=== PATIENT | female | born 1940 | race Caucasian/White ===

== ENCOUNTER 2020-01-14 06:21 | Outpatient (CLI) | payer MEDICARE, BC, SELFPAY ==
[2020-01-14 17:27] LABS: SARS-CoV-2 RNA PCR Negative
== END 2020-01-14 06:22 | disposition home or self-care (01) ==
LOC: ANHCOVIDDT 06:21
PROVIDERS: PCP Physician Assistant; Visit Provider Internal Medicine Gastroenterology
DX: Z01.812 Encounter for preprocedural laboratory examination (principal); Z11.59 Encounter for screening for other viral diseases
CPT/HCPCS: 87635; C9803; U0003

== ENCOUNTER 2020-01-17 03:28 | Day surgery (SDC) | payer MEDICARE, BC, SELFPAY ==
[2020-01-12 15:52] VITALS: BMI 31.2
[2020-01-17 09:55] LABS: Glucose Point of Care 119 (65-105)
[2020-01-17 10:06] VITALS: BP 178/58; PULSE 58; RESP 20; TEMP 36.6; O2SAT 97; BMI 30.1
--- NOTE | 2020-01-17 10:09 | WPDANESEPPF ---
Anes - Initial Pre Proc Eval Procedure: Operation Date: 01/17/20 11:00 Proposed Procedures p Esophagogastroduodenoscopy - Jacob Hood MD Date/Time: 01/17/20 10:09 Surgeon: Jacob Hood MD Pre Op Diagnosis: Dyspepsia Patient Data Age: 79 Gender: F Height: 5 ft 1 in Weight: 75 kg Allergies Allergy/AdvReac Type Severity Reaction Status Date / Time metronidazole Allergy Severe Unknown Verified 01/17/20 10:04 codeine Allergy Intermediate HYPERACTIVI Verified 01/17/20 10:04 TY Home Medications Medication Instructions Recorded Confirmed Type bisoprolol-hydrochlorothiazide 1 tablet PO QAM 01/12/20 01/17/20 History levothyroxine [Synthroid] 75 mcg PO QAM 01/12/20 01/17/20 History metformin 500 mg PO QAM 01/12/20 01/17/20 History multivitamin [Multiple Vitamins] 1 tablet PO DAILY 01/12/20 01/17/20 History pitavastatin calcium [Livalo] 2 mg PO QAM 01/12/20 01/17/20 History ramipril 10 mg PO QAM 01/12/20 01/17/20 History Laboratory Tests 01/17/20 09:53 POC Capillary Glucose 119 mg/dl H mg/dl (65-105) Patient hx anesthesia problems: none Family hx anesthesia problems: none [facility] Past Medical History Medical History (Updated 01/17/20 @ 10:11 by Glen Freeman MD) Dementia Diabetes GERD (gastroesophageal reflux disease) Hyperlipidemia Hypertension Anes - Eval Final PreProcedure Day of Procedure 01/17/20 10:09 Patient weight: normal Heart: regular rate and rhythm Lungs: clear to auscultation Airway: Mallampati scale class III Neurological: alert and oriented Last oral intake: >/= 8 hours ASA classification: III Emergent: no Anesthetic plan: proceed Anesthesia type and monitoring: general GIVS and standard monitoring Informed Consent: The patient's anesthetic plan and its attendant risks and benefits were discussed with the patient/family/POA. Questions were solicited and answers provided to the satisfaction of the patient/family/POA.
--- NOTE | 2020-01-17 10:10 | PM.HPGS ---
History of Present Illness History of Present Illness Consent: Risks, benefits, and alternatives have been discussed and questions answered. Patient agrees to proceed with procedure. Chief complaint: Dyspepsia Narrative: Mayuri Fernando is a 79 year old female with dyspepsia that has been going on for almost 2 years. She states that she belches constantly. On taking her history it appears at this is primarily a hiccup, though her adds that she has loud belches frequently throughout the day and night. She is constantly nauseated. She has a bad taste in her mouth. She must force herself to eat the little bit that she can. Nevertheless, she has not lost any weight in fact is gaining weight. She apparently tried a PPI for a while. Her stated that it made it worse and he stopped it because he was afraid she would get gastric polyps. [facility] Past Medical History Medical History Dementia Diabetes GERD (gastroesophageal reflux disease) Hyperlipidemia Hypertension Meds Home Medications and Allergies Home Medications Medication Instructions Recorded Confirmed Type bisoprolol-hydrochlorothiazide 1 tablet PO QAM 01/12/20 01/17/20 History levothyroxine [Synthroid] 75 mcg PO QAM 01/12/20 01/17/20 History metformin 500 mg PO QAM 01/12/20 01/17/20 History multivitamin [Multiple Vitamins] 1 tablet PO DAILY 01/12/20 01/17/20 History pitavastatin calcium [Livalo] 2 mg PO QAM 01/12/20 01/17/20 History ramipril 10 mg PO QAM 01/12/20 01/17/20 History Allergies Allergy/AdvReac Type Severity Reaction Status Date / Time metronidazole Allergy Severe Unknown Verified 01/17/20 10:04 codeine Allergy Intermediate HYPERACTIVI Verified 01/17/20 10:04 TY Vital Signs Vital Signs - 24 hr 01/17/20 10:06 Temperature 36.6 C Pulse Rate 58 L Respiratory Rate 20 Blood Pressure 178/58 H Pulse Oximetry 97 Exam Const: General: alert Orientation/consciousness: patient oriented x3 Resp: Auscultation: clear to auscultation bilaterally Cardio: Rhythm: regular rhythm GI: GI Palp: Yes Soft to palpation and No Tenderness to palpation present (GI) Neuro: General: patient oriented x3 Assessment and Plan Assessment and plan (1) Nausea: Code(s): R11.0 - Nausea Status: Acute Assessment and Plan: EGD with possible biopsy or dilatation or cautery.
[2020-01-17] MEDS: LACTATED RINGERS 1,000 ML 150 ML IV CONT (10:11)
[2020-01-17] MEDS: ONDANSETRON INJ 4 MG/2 ML VIAL IV PUSH (10:16)
[2020-01-17 11:02] VITALS: BP 162/63; PULSE 54; RESP 24; O2SAT 97
[2020-01-17 11:12] VITALS: BP 170/72; PULSE 51; RESP 20; O2SAT 100
[2020-01-17 11:22] VITALS: BP 173/69; PULSE 50; RESP 21; O2SAT 99
[2020-01-17 11:33] LABS: Glucose Point of Care 105 (65-105)
--- NOTE | 2020-01-17 11:55 | SUR.PHASEII ---
1155: DR VALDIVIA'S OFFICE NOTIFIED OF POSITIVE H PYLORI. THEY WILL NOTIFY MD. FAMILY AWARE THAT DR VALDIVIA WILL CALL WITH ANY FURTHER ORDERS. NO CONCERNS
== END 2020-01-17 11:48 | disposition home or self-care (01) ==
PROVIDERS: PCP Physician Assistant; Visit Provider Internal Medicine Gastroenterology
PROC: 0DJ08ZZ Inspection of Upper Intestinal Tract, Via Natural or Artificial Opening Endoscopic (ICD-10-PCS; CPT 43235; principal; 2020-01-17 11:00)
DX: K44.9 Diaphragmatic hernia without obstruction or gangrene (principal); K25.9 Gastric ulcer, unspecified as acute or chronic, without hemorrhage or perforation; K29.50 Unspecified chronic gastritis without bleeding; K21.9 Gastro-esophageal reflux disease without esophagitis; I10 Essential (primary) hypertension; E78.5 Hyperlipidemia, unspecified; E11.9 Type 2 diabetes mellitus without complications; F03.90 Unspecified dementia, unspecified severity, without behavioral disturbance, psychotic disturbance, mood disturbance, and anxiety; Z79.84 Long term (current) use of oral hypoglycemic drugs
CPT/HCPCS: 43239; 87081; 88305; 88342; J2405; J2704; J7120

== ENCOUNTER 2020-03-22 09:33 | Outpatient (CLI) | payer MEDICARE, BC, SELFPAY ==
--- NOTE | 2020-03-22 | ECHO_ITS ---
Patient Info Name: Mayuri Fernando Age: 80 years : 1940 Gender: Female Ht: 62 in Wt: 155 lbs BSA: 1.78 m2 HR: 59 bpm BP: 180 / 78 mmHg Heart Rhythm: Sinus Rhythm Technical Quality: Good Exam Date: 03/22/2020 10:11 AM Exam Location: [facility] Patient Status: Outpatient Admit Date: 03/22/2020 Staff Ordering Physician: YeChelly Finisher Machine: Lian Ellis RDCS Attending Provider: AnuChelly Exam Type: CA echo doppler color flow Study Info Indications - MURMUR Complete two-dimensional, color flow and Doppler transthoracic echocardiogram is performed. Summary 1. Complete two-dimensional, color flow and Doppler transthoracic echocardiogram is performed. 2. Left ventricular systolic function is normal, estimated at 55-60%. 3. There is no increased left ventricular wall thickness. 4. The left ventricular diastolic function is grade I diastolic dysfunction. 5. There is moderate aortic valve stenosis with a peak velocity of 244 cm/s, mean gradient of 13 mmHg, and aortic valve area of 1.3 cm2. 6. There is moderate aortic valve calcification. 7. There is mild tricuspid valve regurgitation. 8. No pulmonary hypertension, estimated pulmonary arterial systolic pressure is 29 mmHg. 9. The mitral valve annulus is moderately calcified with calcification of the sub mitral apparatus. 10. There is mild aortic valve regurgitation. 11. There is mild mitral valve regurgitation. 12. There is moderate aortic atherosclerosis. Fixed, echodensity measured at 0.5cmx0.7cm in the proximal ascending aorta consistent with focal calcified plaque. Left Ventricle Left ventricular chamber dimension is normal. Left ventricular systolic function is normal, estimated at 55-60%. There is no increased left ventricular wall thickness. The left ventricular diastolic function is grade I diastolic dysfunction. Right Ventricle Right ventricular chamber dimension is normal. Right ventricular systolic function is normal. Left Atria Left atrial chamber dimension is normal. Right Atria Right atrial chamber dimension is normal. Aortic Valve The aortic valve is not well visualized. There is moderate aortic valve stenosis with a peak velocity of 244 cm/s, mean gradient of 13 mmHg, and aortic valve area of 1.3 cm2. There is mild aortic valve regurgitation. There is moderate aortic valve calcification. Pulmonic Valve The pulmonic valve is normal. There is mild pulmonic regurgitation. Mitral Valve The mitral valve has thickened leaflets and calcified leaflets. There is mild mitral valve regurgitation. The mitral valve annulus is moderately calcified with calcification of the sub mitral apparatus. Tricuspid Valve The tricuspid valve leaflets are normal. There is mild tricuspid valve regurgitation. No pulmonary hypertension, estimated pulmonary arterial systolic pressure is 29 mmHg. Pericardium/Pleural The pericardium appears normal. There is no pericardial effusion. Inferior Vena Cava Normal inferior vena cava with >50% collapse upon inspiration consistent with normal right atrial pressure, 5 mmHg. Aorta The aortic root size at the sinus of Valsalva is normal. There is moderate aortic atherosclerosis. Fixed, echodensity measured at 0.5cmx0.7cm in the proximal ascending aorta consistent with focal calcified plaque. Left Ventricular Outflow Tract Name
== END 2020-03-22 09:34 | disposition home or self-care (01) ==
PROVIDERS: PCP Physician Assistant; Visit Provider Physician Assistant
DX: R01.1 Cardiac murmur, unspecified (principal); R93.1 Abnormal findings on diagnostic imaging of heart and coronary circulation
CPT/HCPCS: 93306

== ENCOUNTER 2020-05-02 11:25 | Outpatient (CLI) | payer MEDICARE, BC, SELFPAY ==
--- NOTE | ~2020-05-02 | XR_ITS ---
EXAMINATION: XR shoulder RT min 2V DATE: 05/02/2020 11:50 INDICATION: Right shoulder pain. TECHNIQUE: 4 views of right shoulder were obtained. COMPARISON: None. FINDINGS: Bone alignment is normal. No fracture. There is mild osteoarthritis of glenohumeral joint a nd acromioclavicular joint. Calcified right hilar lymph nodes are consistent with old granulomatous d isease. IMPRESSION: 1. Mild polyarticular osteoarthritis. Reviewed, dictated and finalized at location A.
== END 2020-05-02 11:26 | disposition home or self-care (01) ==
LOC: ANHIMG 11:30
PROVIDERS: PCP Physician Assistant; Visit Provider Physician Assistant
DX: M19.011 Primary osteoarthritis, right shoulder (principal); G89.29 Other chronic pain
CPT/HCPCS: 73030

== ENCOUNTER → 2020-12-15 01:10 | Outpatient (CLI) | payer MEDICARE, BC, SELFPAY ==
[2020-12-15 19:37] LABS: SARS-CoV-2 RNA PCR Negative
== END ==
PROVIDERS: PCP Physician Assistant; Visit Provider Internal Medicine Gastroenterology
DX: Z01.812 Encounter for preprocedural laboratory examination (principal); Z20.822 Contact with and (suspected) exposure to COVID-19
CPT/HCPCS: C9803; U0003; U0005

== ENCOUNTER 2020-12-19 01:49 | Day surgery (SDC) | payer MEDICARE, BC, SELFPAY ==
[2020-12-12 14:03] VITALS: BMI 31.4
--- NOTE | 2020-12-19 07:29 | PM.HPGS ---
History of Present Illness History of Present Illness Consent: Risks, benefits, and alternatives have been discussed and questions answered. Patient agrees to proceed with procedure. Chief complaint: Epigastric Pain Narrative: Mayuri Fernando is a 80 year old female persistent dyspepsia. She had a ulcer last year. She had declined follow-up to confirm healing at that time. Now because of persistent symptoms and new symptoms of excessive belching she comes in for evaluation. Review of Systems Review of Systems: All systems reviewed & are unremarkable except as noted in HPI and below PMFSH Past Medical History Medical History Dementia Diabetes Gastric ulcer GERD (gastroesophageal reflux disease) Hyperlipidemia Hypertension Ulcer Social History Social History Smoking status: Never smoker Alcohol intake: never Substance use: never Living arrangements: with family Additional living arrangements comments: - /- Spiritual care concerns: No Meds Home Medications and Allergies Home Medications Medication Instructions Recorded Confirmed Type Livalo 2 mg PO QAM 01/12/20 12/12/20 History bisoprolol-hydrochlorothiazide 1 tablet PO QAM 01/12/20 12/12/20 History levothyroxine [Synthroid] 75 mcg PO QAM 01/12/20 12/12/20 History metformin 500 mg PO QAM 01/12/20 12/12/20 History multivitamin [Multiple Vitamins] 1 tablet PO DAILY 01/12/20 12/12/20 History ramipril 10 mg PO QAM 01/12/20 12/12/20 History Allergies Allergy/AdvReac Type Severity Reaction Status Date / Time metronidazole Allergy Severe Unknown Verified 12/12/20 14:01 codeine Allergy Intermediate HYPERACTIVI Verified 12/12/20 14:01 TY Exam Const: General: alert Orientation/consciousness: patient oriented x3 Resp: Auscultation: clear to auscultation bilaterally Cardio: Rhythm: regular rhythm GI: GI Palp: Yes Soft to palpation and No Tenderness to palpation present (GI) Neuro: General: patient oriented x3 Assessment and Plan Assessment and plan (1) Epigastric pain: Code(s): R10.13 - Epigastric pain Status: Acute Assessment and Plan: EGD with possible biopsy or dilatation or cautery.
[2020-12-19 07:41] VITALS: BP 156/83; PULSE 65; RESP 14; TEMP 36.1; O2SAT 98; BMI 31.9
[2020-12-19] MEDS: LACTATED RINGERS 1,000 ML 150 ML IV CONT (07:53)
[2020-12-19 07:55] LABS: Glucose Point of Care 130 mg/dl (65-105)
--- NOTE | 2020-12-19 08:09 | WPDANESEPPF ---
Anes - Initial Pre Proc Eval Procedure: Operation Date: 12/19/20 08:30 Proposed Procedures p Esophagogastroduodenoscopy - Jacob Hood MD Date/Time: 12/19/20 08:09 Surgeon: Jacob Hood MD Pre Op Diagnosis: Epigastric Pain Patient Data Age: 80 Gender: F Height: 5 ft Weight: 74.2 kg Last Vital Signs Temp 96.9 F L 12/19/20 07:41 Pulse 65 12/19/20 07:41 Resp 14 12/19/20 07:41 BP 156/83 H 12/19/20 07:41 Pulse Ox 98 12/19/20 07:41 Allergies Allergy/AdvReac Type Severity Reaction Status Date / Time metronidazole Allergy Severe Unknown Verified 12/19/20 07:37 codeine Allergy Intermediate HYPERACTIVI Verified 12/19/20 07:37 TY Home Medications Medication Instructions Recorded Confirmed Type Livalo 2 mg PO QAM 01/12/20 12/12/20 History bisoprolol-hydrochlorothiazide 1 tablet PO QAM 01/12/20 12/12/20 History levothyroxine [Synthroid] 75 mcg PO QAM 01/12/20 12/12/20 History metformin 500 mg PO QAM 01/12/20 12/12/20 History multivitamin [Multiple Vitamins] 1 tablet PO DAILY 01/12/20 12/12/20 History ramipril 10 mg PO QAM 01/12/20 12/12/20 History Laboratory Tests 12/19/20 07:46 POC Capillary Glucose 130 mg/dl H mg/dl (65-105) Patient hx anesthesia problems: none Family hx anesthesia problems: none [facility] Past Medical History Medical History Dementia Diabetes Gastric ulcer GERD (gastroesophageal reflux disease) Hyperlipidemia Hypertension Ulcer Social History Social History Smoking status: Never smoker Alcohol intake: never Substance use: never Living arrangements: with family Additional living arrangements comments: - /- Spiritual care concerns: No Anes - Eval Final PreProcedure Day of Procedure 12/19/20 08:09 Patient weight: overweight Heart: regular rate and rhythm Lungs: clear to auscultation Airway: Mallampati scale class II Neurological: alert and oriented Last oral intake: >/= 8 hours ASA classification: III Emergent: no Anesthetic plan: proceed Anesthesia type and monitoring: general GIVS and standard monitoring Informed Consent: The patient's anesthetic plan and its attendant risks and benefits were discussed with the patient/family/POA. Questions were solicited and answers provided to the satisfaction of the patient/family/POA.
[2020-12-19 08:34] VITALS: BP 174/70; PULSE 54; RESP 23; O2SAT 98
[2020-12-19 08:44] VITALS: BP 172/72; PULSE 54; RESP 20; O2SAT 98
[2020-12-19 08:47] VITALS: BP 174/70; PULSE 54; RESP 23; O2SAT 98
[2020-12-19 08:54] VITALS: BP 170/74; PULSE 52; RESP 16; O2SAT 98
== END 2020-12-19 09:15 | disposition home or self-care (01) ==
PROVIDERS: PCP Physician Assistant; Visit Provider Internal Medicine Gastroenterology
PROC: 0DJ08ZZ Inspection of Upper Intestinal Tract, Via Natural or Artificial Opening Endoscopic (ICD-10-PCS; CPT 43235; principal; 2020-12-19 08:30)
DX: K25.9 Gastric ulcer, unspecified as acute or chronic, without hemorrhage or perforation (principal); K21.9 Gastro-esophageal reflux disease without esophagitis; F03.90 Unspecified dementia, unspecified severity, without behavioral disturbance, psychotic disturbance, mood disturbance, and anxiety; E11.9 Type 2 diabetes mellitus without complications; I10 Essential (primary) hypertension; E78.5 Hyperlipidemia, unspecified; Z79.84 Long term (current) use of oral hypoglycemic drugs
CPT/HCPCS: 43239; 82948; 87081; J2704; J7120

== ENCOUNTER 2023-11-26 04:39 | Inpatient (IN) | payer MEDICARE, BC, SELFPAY ==
[2023-11-26] VITALS (11 sets, daily range): BP systolic 119–167; BP diastolic 40–92; PULSE 53–64; RESP 10–20; TEMP 36.1–36.7; O2SAT 95–100; BMI 29.0
--- NOTE | ~2023-11-26 | XR_ITS ---
Portable chest x-ray Comparison: 08/31/2007 Clinical History: Status post fall Findings: There is linear scarring or atelectasis left midlung. Lungs are otherwise clear. Cardiome diastinal silhouette is stable. Bones and soft tissues are unremarkable. Impression: Linear scar or atelectasis left midlung, otherwise clear lungs. Reviewed, dictated and finalized at location . Impression: Linear scar or atelectasis left midlung, otherwise clear lungs.
--- NOTE | ~2023-11-26 | XR_ITS ---
Left Hand Technique: PA, oblique, and lateral views were obtained. Clinical History: Pain Findings: No acute fracture or dislocation is seen. Osseous alignment is anatomic. There are scattere d mild to moderate degenerative changes of the interphalangeal joints of the fingers. There is mild t o moderate degenerative change of the first CMC joint. Soft tissues are unremarkable. Impression: No acute fracture or dislocation. Scattered degenerative changes, as detailed above. Reviewed, dictated and finalized at location M. Impression: No acute fracture or dislocation. Scattered degenerative changes, as detailed above.
--- NOTE | ~2023-11-26 | CT_ITS ---
Noncontrast CT scan of the cervical spine Technique: Multiple contiguous axial [address] images of the cervical spine were obtained and rec onstructed in 2D sagittal and coronal planes on the acquisition scanner. Dose reduction technique was used on this scan by utilizing automated exposure control, adjustment of the mA and/or kV according to patient size. The dose-length product (DLP) was 146.58 mGy-cm. Clinical History: Pain Findings: No fractures or dislocations. There is advanced degenerative disc narrowing at C6-C7. Ther e is mild degenerative change in the remainder of the cervical spine. There is advanced degenerative change at the articulation of the odontoid process with the anterior arch of C1. There are moderate f acet joint degenerative changes throughout the cervical spine. There is probable mild bilateral neura l foraminal narrowing at C4-C5. There is probable bilateral neural foraminal narrowing at C5-C6 and C 6-C7. There is disc osteophyte complex at C6-C7 with probable mild canal stenosis. No prevertebral so ft tissue swelling. Impression: No fracture or subluxation of the cervical spine. Degenerative change, as above. Reviewed, dictated and finalized at location . Impression: No fracture or subluxation of the cervical spine. Degenerative change, as above.
--- NOTE | ~2023-11-26 | XR_ITS ---
Right Hand Technique: PA, oblique, and lateral views were obtained. Clinical History: Pain Findings: No acute fracture or dislocation is seen. Osseous alignment is anatomic. There is advanced degenerative change of the second and third DIP joints. There are mild to moderate degenerative carrillo es the remaining interphalangeal joints of the fingers, with additional mild degenerative change at t he first CMC joint.. Soft tissues are unremarkable. Impression: Scattered degenerative changes, as above, worst at the second and third DIP joints. Reviewed, dictated and finalized at location M. Impression: Scattered degenerative changes, as above, worst at the second and third DIP lana nts.
--- NOTE | ~2023-11-26 | XR_ITS ---
EXAMINATION: XR cervical spine 4-5V DATE: 11/26/2023 19:10 INDICATION: Right shoulder pain. TECHNIQUE: 5 views of cervical spine including flexion and extension views were obtained. COMPARISON: None. FINDINGS: Bone alignment is normal. There is no abnormal motion on flexion or extension. Vertebral gus dy heights are normal. There is moderately decreased disc height at C4-C5 and C5-C6 and severely decr eased disc height at C6-C7 and C7-T1. There is multilevel facet joint osteoarthritis, severe on the r ight at C4-C5 and on the left at C3-C4. No central canal stenosis or prevertebral soft tissue swellin g. IMPRESSION: 1. Severe cervical spondylosis. Reviewed, dictated and finalized at location E.
--- NOTE | ~2023-11-26 | XR_ITS ---
EXAMINATION: XR shoulder RT min 2V DATE: 11/26/2023 19:10 INDICATION: Right shoulder pain. TECHNIQUE: 3 views of right shoulder were obtained. COMPARISON: Right shoulder radiographs 05/02/2020 FINDINGS: There is superior subluxation of humeral head with narrowing of the subacromial space, cons istent with rotator cuff tear. No fracture. There is mild osteoarthritis of glenohumeral joint and se piero osteoarthritis of acromioclavicular joint. IMPRESSION: 1. Polyarticular osteoarthritis. 2. Right rotator cuff tear. Reviewed, dictated and finalized at location E.
--- NOTE | ~2023-11-26 | MR_ITS ---
MRI of the cervical spine Clinical History: Paresthesia Technique: Axial T2-weighted and gradient images, and sagittal T1-weighted, T2-weighted, and STIR veena ges were acquired. Findings: There is no fracture or subluxation of the cervical spine. Vertebral bodies maintain normal height and line. No bone marrow signal abnormality seen. At C2-C3, there is minimal disc bulge. There is probable mild bilateral neural foraminal narrowing wi th mild bilateral facet arthropathy. No central canal stenosis or cord compression. At C3-C4, there is degenerative disc narrowing. Disc osteophyte complex results in mild canal stenosi s without saulo cord compression. There is minimal bilateral neural foraminal narrowing. At C4-C5, there is advanced degenerative disc narrowing. Disc ossify complex results in moderate cristel l stenosis and cord compression. There is bilateral neural foraminal narrowing and bilateral facet ar thropathy. At C5-C6, disc osteophyte, with results in mild to moderate canal stenosis and cord compression. Ther e is bilateral neural foraminal narrowing. At C6-C7, there is disc osteophyte complex with moderate canal stenosis and cord compression. There i s mild bilateral neural foraminal narrowing. No abnormal signal in the spinal cord. Paravertebral soft tissues are unremarkable. Impression: Severe degenerative spondylosis. There is canal stenosis and cord compression at C4-C5, C5-C6, and C6 -C7, as detailed above. Multilevel neural foraminal narrowing. Reviewed, dictated and finalized at [facility]. Impression: Severe degenerative spondylosis. There is canal stenosis and cord compression a t C4-C5, C5-C6, and C6-C7, as detailed above. Multilevel neural foraminal narro wing.
--- NOTE | ~2023-11-26 | XR_ITS ---
Left wrist Technique: PA, oblique, lateral, and ulnar deviation views were obtained. Clinical History: Pain Findings: No acute fracture or dislocation is seen. Osseous alignment is anatomic. There is moderate degenerative change of the first CMC joint. Soft tissues are unremarkable. Impression: No acute fracture or dislocation. Moderate degenerative change of the first CMC joint. Reviewed, dictated and finalized at location . Impression: No acute fracture or dislocation. Moderate degenerative change of the first CMC joint.
--- NOTE | ~2023-11-26 | XR_ITS ---
Right wrist Technique: PA, oblique, lateral, and ulnar deviation views were obtained. Clinical History: Pain Findings: No acute fracture seen. There is widening of the scapholunate interval to 5 mm. There is mi ld to moderate degenerative change of the first CMC joint.. Soft tissues are unremarkable. Impression: No acute fracture. Scapholunate interval widening to 5 mm, consistent with underlying scapholunate ligament tear. Mild to moderate degenerative change of the first CMC joint. Reviewed, dictated and finalized at location . Impression: No acute fracture. Scapholunate interval widening to 5 mm, consistent with underlying scapholunate ligament tear. Mild to moderate degenerative change of the first CMC joint.
--- NOTE | ~2023-11-26 | CT_ITS ---
CT head without contrast Indication: Head injury Technique: Serial scans were obtained through the brain without the administration of contrast. Dose reduction technique was used on this scan by utilizing automated exposure control and iterative recon struction technique. The dose-length product (DLP) was 605.33 mGy-cm. Findings: There is no evidence of intracranial hemorrhage, mass lesion, or acute infarct. The ventri cles and subarachnoid spaces are dilated, consistent with moderate to advanced atrophy. Low attenuat ion regions are seen within the periventricular white matter bilaterally, likely representing changes from chronic microvascular ischemic disease. There is no evidence of edema, mass effect or midline shift. The visualized paranasal sinuses and mastoid air cells are clear. Impression: No intracranial hemorrhage, mass, or acute infarct. Atrophy and chronic white matter changes, as above. Reviewed, dictated and finalized at location . Impression: No intracranial hemorrhage, mass, or acute infarct. Atrophy and chronic white matter changes, as above.
[2023-11-26] MEDS: HYDROcodone/acetaminophen (*CRX) 5-325 MG TABLET 1 TAB PO (05:48)
--- NOTE | 2023-11-26 05:48 | ED.GENADULT ---
HPI - General Adult General Chief complaint: Fall Stated complaint: fall, bilateral hand pain Time Seen by Provider: 11/26/23 04:43 History of Present Illness HPI narrative: Patient is a 83-year-old female who presents emergency department with chief complaint of fall and hand pain. Patient has history of extensive dementia and had a ground level fall at home this evening the patient fell forward and struck her forehead the family is unsure if she landed on her outstretched hands but was complaining of burning in her hands after the injury the patient is able to move all extremities. Per the family they are unsure if there was loss of this report the patient is not on anticoagulants. Related Data Home Medications Medication Instructions Recorded Confirmed bisoprolol 5 1 tablet PO QAM 01/12/20 12/12/20 mg-hydrochlorothiazide 6.25 mg tablet levothyroxine 75 mcg tablet 75 mcg PO QAM 01/12/20 12/12/20 (Synthroid) metformin 500 mg tablet 500 mg PO QAM 01/12/20 12/12/20 multivitamin (Multiple Vitamins 1 tablet PO DAILY 01/12/20 12/12/20 tablet) pitavastatin calcium 2 mg tablet 2 mg PO QAM 01/12/20 12/12/20 (Livalo) ramipril 10 mg capsule 10 mg PO QAM 01/12/20 12/12/20 Allergies Allergy/AdvReac Type Severity Reaction Status Date / Time metronidazole Allergy Severe Unknown Verified 12/19/20 07:37 codeine Allergy Intermediate HYPERACTIVI Verified 12/19/20 07:37 TY Review of Systems Review of Systems: A 10 system review of systems was completed on the patient and is negative except for what is stated in the HPI. Nursing and ancillary documentation was reviewed. [facility] Past Medical History Medical History Dementia Diabetes Gastric ulcer GERD (gastroesophageal reflux disease) Hyperlipidemia Hypertension Ulcer Social History Social History Smoking status: Never smoker Alcohol intake: never Substance use: never Living arrangements: with family Additional living arrangements comments: - /- Occupation/Education: retired Spiritual care concerns: No Exam Narrative: GENERAL: Well-appearing, well-nourished, and in no acute distress. HEAD: Normocephalic, atraumatic. EYES: PERRLA and EOMI. ENT: Nares clear, no rhinorrhea or epistaxis. Mucous membranes moist. NECK: Supple. CHEST: Clear to auscultation. No respiratory distress. HEART: Regular rate and rhythm. No murmur heard. Normal peripheral pulses. ABDOMEN: Soft, nontender, nondistended, normal active bowel sounds. EXTREMITIES: Normal range of motion. No edema. SKIN: Warm, dry, no rash. NEURO: No focal deficits. Alert and pleasantly confused. PSYCH: Normal mood and affect. Course Vital Signs Vital signs: Vital Signs Temperature 36.7 C 11/26/23 04:45 Pulse Rate 56 L 11/26/23 04:45 Respiratory Rate 17 11/26/23 04:45 Blood Pressure 166/61 H 11/26/23 04:45 Pulse Oximetry 100 11/26/23 04:45 Oxygen Delivery Room Air 11/26/23 04:45 Temperature 36.7 C 11/26/23 04:45 Pulse Rate 56 L 11/26/23 04:45 Respiratory Rate 17 11/26/23 04:45 Blood Pressure 166/61 H 11/26/23 04:45 Pulse Oximetry 100 11/26/23 04:45 Oxygen Delivery Room Air 11/26/23 04:45 Medical Decision Making Vital Signs Vital Signs: Vital Signs Temperature 36.7 C 11/26/23 04:45 Pulse Rate 56 L 11/26/23 04:45 Respiratory Rate 17 11/26/23 04:45 Blood Pressure 166/61 H 11/26/23 04:45 Pulse Oximetry 100 11/26/23 04:45 Oxygen Delivery Room Air 11/26/23 04:45 Temperature 36.7 C 11/26/23 04:45 Pulse Rate 56 L 11/26/23 04:45 Respiratory Rate 17 11/26/23 04:45 Blood Pressure 166/61 H 11/26/23 04:45 Pulse Oximetry 100 11/26/23 04:45 Oxygen Delivery Room Air 11/26/23 04:45 Discharge Plan Discharge Clinical Impression: Upper arm pain, Head injury,
--- NOTE | 2023-11-26 06:49 | PC.NURSE ---
Provider at bedside for triage of pt. Pt was in severe pain with movement. After provider's assessment of pt, provider stated he did not feel as if a C collar was necessary at that time.
[2023-11-26 07:01] LABS: Basophils Percent Auto 0.1 % (0.2-1.2); Hematocrit 35.7 % (37.0-47.0); Hemoglobin 11.8 g/dL (12.0-15.0); Immature Granulocyte Absolute 0.12 K/mm3 (0.00-0.031); Immature Granulocyte Percent A 0.8 % (0-0.5); Lymphocytes Absolute Auto 2.03 K/mm3 (0.9-3.2); Lymphocytes Percent Auto 13.5 % (18.3-44.2); Mean Corpuscular HGB Conc 33.1 g/dl (32-36); Mean Corpuscular Volume 90.8 fl (80-100); Mean Platelet Volume 10.8 fl (7.4-10.4); Monocytes Percent Auto 6.6 % (2.6-8.5); Neutrophils Absolute Auto 11.9 K/mm3 (1.3-6.7); Platelet Count Result 217 k/mm3 (150-375); Red Blood Count 3.93 M/mm3 (4.2-5.4); White Blood Count 15.1 K/mm3 (4.5-10.0)
[2023-11-26] MEDS: MORPHINE SULFATE (*CRX) 4 MG/ML INJ 2 MG IV PUSH (07:02)
[2023-11-26 07:22] LABS: Alanine Aminotransferase 20 U/L (6-35); Albumin Level 4.4 g/dL (3.5-5.1); Alkaline Phosphatase 107 U/L (38-126); Aspartate Amino Transferase 33 U/L (14-36); Bilirubin,Total 0.5 mg/dL (0.2-1.3); Blood Urea Nitrogen 37 mg/dL (7-17); Calcium 9.5 mg/dL (8.4-10.2); Carbon Dioxide 25 mmol/L (22-30); Estimated CRCL calculation 26 ml/min; Estimated Glomerular Filt Rate 47; Glucose 200 mg/dL (65-110)
[2023-11-26 07:36] LABS: Anion Gap 8 mmol/L (4-12); Chloride 102 mmol/L (98-107); Sodium 135 mmol/L (137-145)
--- NOTE | 2023-11-26 08:51 | PC.NURSE ---
This patient, Mayuri Fernando, was admitted to [facility] Surg Room 323-02. Patient/family oriented to hospital policies and general routines including ID bracelet, bed and alarms, visiting hours, pain management, procedures, bathroom and other care routines, personal items, smoking policy, room service/diet, and visiting hours. Information on how to activate the Rapid Response Team has been discussed. Patient/Family are encouraged to report perceived risks to care and to ask questions if they do not understand what they are told or what they should do.
--- NOTE | 2023-11-26 09:02 | PM.IMHP ---
H&P: HPI History of Present Illness Date/Time: 11/26/23 09:02 Chief Complaint: ground level fall with upper extremity paraesthesia Narrative: 83 year old female with past medical history of diabetes, GERD, hypertension, hyperlipidemia, and dementia presents to the hospital for an unwitnessed ground level fall. Per patient she fell on outstretched hands and hit her forehead on a bench. She denies loss of consciousness. She cannot remember what caused her to fall. She denies recent dizziness and weakness. states she likely tripped over their dogs. She was unable to get up on her own and required assistance from her and son. She states that immediately after the fall she had severe bilateral burning pain to her upper extremities ranging from her neck to the tips of her fingers. Per he was unable to touch her hand without her screaming in pain. Patient was started on gabapentin but continues to endorse burning pain. She states she feels as though she is on fire, rating the pain a 10/10. Discussed patients pain with neurosurgery who suggested starting patient on Tylenol, Flexeril and Oxycodone. 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 Neurosurgery aware and plans to evaluate patient this afternoon. Patient has leukocytosis on CBC likely related to an inflammatory response from the fall. Covid/flu/rsv negative. Chest XR negative. Urinalysis ordered. ED workup: CBC with leukocytosis of 15.1. CMP with Na 135 and BUN/Cr 37/1.1 unknown baseline. Labs otherwise unremarkable. Left hand/wrist XR with degenerative changes, no acute fracture. Right hand/wrist XR with scapholunate interval widening to 5 mm, consistent with scapholunate ligament tear and degenerative changes. C spine CT without fracture or subluxation of the c spine. Head CT without intracranial hemorrhage, mass or acute infarct. MRI ordered for concern of central cord syndrome due to patients ongoing upper extremity paraesthesia. Neurosurgery consulted. Review of Systems Review of Systems: All systems reviewed & are unremarkable except as noted in HPI and below PMFSH Past Medical History Medical History Dementia Diabetes Gastric ulcer GERD (gastroesophageal reflux disease) Hyperlipidemia Hypertension Ulcer Social History Social History Smoking status: Never smoker Alcohol intake: never Substance use: never Substance use type: does not use Do You Feel Safe in your Home?: Yes Lack of Transportation: No Lack of Food: Never True Current Housing: I Have Housing Concerned About Future Housing: No Difficulty Paying Gas/Electric Bills: No Difficulty Paying for Meds: No Currently Unemployed: No Education: High School Diploma/GED Difficulty w/ Childcare or Family Care: No Living arrangements: with family Additional living arrangements comments: - /- Occupation/Education: retired Spiritual care concerns: No Meds Home Medications and Allergies Home Medications Medication Instructions Recorded Confirmed Type bisoprolol 5 1 tablet PO QAM 01/12/20 11/26/23 History mg-hydrochlorothiazide 6.25 mg tablet levothyroxine 75 mcg tablet 75 mcg PO QAM 01/12/20 11/26/23 History (Synthroid) multivitamin (Multiple Vitamins 1 tablet PO DAILY 01/12/20 11/26/23 History tablet) amlodipine 2.5 mg tablet 2.5 mg PO DAILY 11/26/23 11/26/23 History mirtazapine 7.5 mg tablet 7.5 mg PO DAILY 11/26/23 11/26/23 History pitavastatin magnesium 2 mg tablet 2 mg PO DAILY 11/26/23 11/26/23 History (Zypitamag) Allergies Allergy/AdvReac Type Severity Reaction Status Date / Time metronidazole Allergy Severe Unknown Verified 12/19/20 07:37 codeine Allergy Intermediate HYPERACTIVI Verified 12/19/20 07:37 TY
[2023-11-26] MEDS: GABAPENTIN 400 MG CAPSULE PO ×2 (10:32→17:28)
[2023-11-26] MEDS: ACETAMINOPHEN 325 MG TABLET 650 MG PO (17:27)
[2023-11-26] MEDS: MIRTAZAPINE 7.5 MG TABLET PO (17:28)
[2023-11-26] MEDS: amLODIPine BESYLATE 2.5 MG TABLET PO (17:28)
[2023-11-26] MEDS: hydroCHLOROthiazide 6.25 MG TABLET PO (17:28)
[2023-11-26] MEDS: bisoproloL fumarate 5 MG TABLET PO (17:29)
[2023-11-26] MEDS: LEVOTHYROXINE SODIUM 75 MCG TABLET PO (17:29)
--- NOTE | 2023-11-26 18:20 | WPDNEUROSGCN ---
Assessment and Plan Assessment and plan (1) Central cord syndrome: Code(s): S14.129A - Central cord syndrome at unspecified level of cervical spinal cord, initial encounter Status: Acute (2) Cervical myelopathy: Code(s): G95.9 - Disease of spinal cord, unspecified Status: Acute Plan Ms. Fernando is an 83-year-old female with history of dementia, DM, HTN who sustained central cord syndrome after a fall at home last night in which she hit her forehead. She had significant burning pain in her hands in particular which has significantly improved. On speaking with her son, it sounds like she has had symptoms concerning for myelopathy for quite some time including burning pain in the hands, difficulty with gripping objects, and balance issues. She may also have radiculopathy into the right shoulder. MRI cervical shows severe central stenosis from C3-4 to C6-7 with T2-cord signal change at C6. I do not see any ligamentus injury. CT scan is negative for acute fracture. I do not think that she needs any emergent surgical intervention, but I discussed with the patient and her family at bedside that we should consider a surgery on an outpatient-basis in the form of posterior cervical decompression vs posterior cervical decompression and fusion, with a goal of preventing her myelopathic symptoms from worsening. I will arrange for my office to set up an appointment with me to discuss this in more detail. In the meantime, I have ordered dynamic cervical xrays to evaluate for instability. I have also ordered right shoulder xrays. She may work with therapy as an inpatient. I anticipate she will be able to discharge in the near future assuming her pain remains controlled. I discussed with her family the importance of avoiding more falls in the future. Consult date: 11/26/23 HPI: Mayuri Fernando is a 83 year old female with history of dementia, diabetes, GERD, HTN, HLD who was admitted to the hospital earlier this morning with central cord syndrome. The patient fell at home overnight when she tripped on some shoes. She hit her forehead on a table. She did not lose consciousness. She immediately had severe burning pain in her hands. Imaging in the ER was negative for acute fracture. During the day, the hospitalist called because she continued to have severe pain in her hands and arms, and some medication adjustments were made. Fortunately, the patient states she is doing very well right now with much improvement in her pain. Her son states that she has had a history of burning pain in her hands and feet for many years which has been attributed to neuropathy. She also has some long-standing right shoulder pain for which she has had many injections into the shoulder. These are somewhat helpful. She just had an injection two days ago which her states was quite painful for her. She also has issues with balance and weakness in her hands. She ambulates independently. 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 Review of Systems Review of Systems: All systems reviewed & are unremarkable except as noted in HPI and below PMFSH Past Medical History Medical History Dementia Diabetes Gastric ulcer GERD (gastroesophageal reflux disease) Hyperlipidemia Hypertension Ulcer Social History Social History Smoking status: Never smoker Alcohol intake: never Substance use: never Substance use type: does not use Do You Feel Safe in your Home?: Yes Lack of Transportation: No Lack of Food: Never True Current Housing: I Have Housing Concerned About Future Housing: No Difficulty Paying Gas/Electric Bills: No Difficulty Paying for Meds: No Currently Unemployed: No Education: High School Diploma/GED Difficulty w/ Childcare or Family Care: No Living arrangements: with family A
[2023-11-26 20:44] LABS: Influenza A QL RT-PCR Negative (Negative); Influenza B QL RT-PCR Negative (Negative); RSV RNA, RT-PCR Negative (Negative); SARS-CoV-2 RNA PCR Negative (Negative)
[2023-11-27] VITALS (7 sets, daily range): BP systolic 126–141; BP diastolic 40–52; PULSE 44–60; RESP 16–20; TEMP 36.6–36.8; O2SAT 100
[2023-11-27] MEDS: ACETAMINOPHEN 325 MG TABLET 650 MG PO ×3 (05:50→17:02)
[2023-11-27] MEDS: LEVOTHYROXINE SODIUM 75 MCG TABLET PO (05:50)
[2023-11-27 06:41] LABS: Basophils Percent Auto 0.1 % (0.2-1.2); Eosinophils Percent Auto 0.3 % (0-4.4); Hematocrit 35.7 % (37.0-47.0); Hemoglobin 11.3 g/dL (12.0-15.0); Immature Granulocyte Absolute 0.04 K/mm3 (0.00-0.031); Immature Granulocyte Percent A 0.4 % (0-0.5); Lymphocytes Absolute Auto 2.72 K/mm3 (0.9-3.2); Lymphocytes Percent Auto 27.2 % (18.3-44.2); Mean Corpuscular HGB Conc 31.7 g/dl (32-36); Mean Corpuscular Hemoglobin 29.8 pg (26-34); Mean Corpuscular Volume 94.2 fl (80-100); Mean Platelet Volume 10.5 fl (7.4-10.4); Monocytes Absolute Auto 0.7 K/mm3 (0.1-0.6); Monocytes Percent Auto 7.1 % (2.6-8.5); Neutrophils Absolute Auto 6.5 K/mm3 (1.3-6.7); Neutrophils Percent Auto 64.9 % (45.5-73.1); Platelet Count Result 208 k/mm3 (150-375); Red Blood Count 3.79 M/mm3 (4.2-5.4); Red Cell Distribution Width 13.4 % (11.5-14.5)
[2023-11-27 06:51] LABS: Alanine Aminotransferase 18 U/L (6-35); Alkaline Phosphatase 72 U/L (38-126); Anion Gap 7 mmol/L (4-12); Aspartate Amino Transferase 26 U/L (14-36); Bilirubin,Total 0.5 mg/dL (0.2-1.3); Blood Urea Nitrogen 32 mg/dL (7-17); Calcium 9.2 mg/dL (8.4-10.2); Carbon Dioxide 26 mmol/L (22-30); Chloride 104 mmol/L (98-107); Estimated CRCL calculation 28 ml/min; Estimated Glomerular Filt Rate 43; Glucose 135 mg/dL (65-110); Potassium 4.1 mmol/L (3.4-5.0); Sodium 137 mmol/L (137-145)
--- NOTE | 2023-11-27 07:14 | PM.IMPN ---
Progress Note: A&P Assessment and Plan (1) Central cord syndrome: Code(s): S14.129A - Central cord syndrome at unspecified level of cervical spinal cord, initial encounter Status: Acute Assessment and Plan: Severe burning sensation of the bilateral upper extremities ranging from the neck to the finger tips. Symptoms began immediately following the fall. - MRI c spine: Severe degenerative spondylosis. There is canal stenosis and cord compression at C4-C5, C5-C6, and C6-C7. Multilevel neural foraminal narrowing. - Gabapentin 400 mg TID - Tylenol 650 mg q6H - Oxycodone 2.5 mg PRN - Flexeril 5 mg PRN - Neurosurgery consulted. (2) Ground-level fall: Code(s): W18.30XA - Fall on same level, unspecified, initial encounter Status: Acute Assessment and Plan: Unwitnessed ground level fall with unknown cause. Patient hit head on bench, denies LOC. Required assistance from and son to get up. - Left hand/wrist XR with degenerative changes, no acute fracture. - Right hand/wrist XR with scapholunate interval widening to 5 mm, consistent with scapholunate ligament tear and degenerative changes. - C spine CT without fracture or subluxation of the c spine. - Head CT without intracranial hemorrhage, mass or acute infarct. - MRI ordered for concern of central cord syndrome due to patients ongoing upper extremity paraesthesia. - Neurosurgery consulted. Do not plan for emergent surgical intervention at this time. Consider an outpatient surgery in the form of posterior cervical decompression vs posterior decompression and fusion to prevent worsening myelopathic symptoms. At discharge she will follow up with neurosurgery to discuss options in more detail. - Dynamic cervical xrays ordered as well as right shoulder xrays. - PT/OT to evaluate patient. (3) Leukocytosis: Code(s): D72.829 - Elevated white blood cell count, unspecified Status: Acute Assessment and Plan: CBC with WBC 15.1 on admission. Patient remains afebrile. Possibly related to inflammatory response following patients fall, however will rule out other infectious causes. - urinalysis ordered - viral panel negative - chest XR normal Resolved. (4) Hypothyroidism: Code(s): E03.9 - Hypothyroidism, unspecified Status: Acute Assessment and Plan: Stable on home medication. - Continue levothyroxine 75 mcg - TSH 0.684 (5) Hypertension: Code(s): I10 - Essential (primary) hypertension Status: Acute Assessment and Plan: Chronic. Stable on home medications. - Amlodipine 2.5 mg daily - Bisoprolol- HCTZ daily (6) Diabetes: Code(s): E11.9 - Type 2 diabetes mellitus without complications Status: Acute Assessment and Plan: - home medication - none. recently taken off of metformin by PCP. - monitor on daily CMP - A1C pending (7) Elevated serum creatinine: Code(s): R79.89 - Other specified abnormal findings of blood chemistry Status: Acute Assessment and Plan: Minimally elevated Cr of 1.2. No prior labs to compare, unknown baseline. - Monitor renal function - I/O (8) Dementia: Code(s): F03.90 - Unspecified dementia, unspecified severity, without behavioral disturbance, psychotic disturbance, mood disturbance, and anxiety Status: Acute Subjective Date/time seen: 11/27/23 07:14 Interval history: 83 year old female with past medical history of diabetes, GERD, hypertension, hyperlipidemia, and dementia presents to the hospital for an unwitnessed ground level fall resulting in central cord syndrome. Patient evaluated by neurosurgery yesterday afternoon who do not plan for emergent surgical intervention at this time. Per neurosurgery note patient should consider an outpatient surgery in the form of posterior cervical decompression vs posterior decompression and fusion to prevent worsening myelopathic symptoms. At discharge she will follow u
[2023-11-27 07:22] LABS: Thyroid Stimulating Hormone 0.684 uIU/mL (0.465-4.680)
[2023-11-27 07:50] LABS: Hemoglobin A1C 6.3 % (<5.7)
[2023-11-27] MEDS: GABAPENTIN 400 MG CAPSULE PO ×3 (09:20→17:02)
[2023-11-27] MEDS: CYCLOBENZAPRINE HCL 5 MG TABLET PO (09:21)
[2023-11-27] MEDS: ENOXAPARIN 40 MG/0.4 ML SYRINGE SUB-Q (09:21)
[2023-11-27] MEDS: MIRTAZAPINE 7.5 MG TABLET PO (09:51)
--- NOTE | 2023-11-27 14:56 | PM.DS ---
DS: Admitting Diagnosis Discharge Date 11/27/23 Admitting Diagnosis Central cord syndrome Ground level fall Leukocytosis Hypothyroidism Hypertension Diabetes Dementia DS: Discharge Diagnosis Discharge Diagnosis (1) Central cord syndrome: Code(s): S14.129A - Central cord syndrome at unspecified level of cervical spinal cord, initial encounter Status: Acute (2) Ground-level fall: Code(s): W18.30XA - Fall on same level, unspecified, initial encounter Status: Acute (3) Leukocytosis: Code(s): D72.829 - Elevated white blood cell count, unspecified Status: Acute (4) Hypothyroidism: Code(s): E03.9 - Hypothyroidism, unspecified Status: Acute (5) Hypertension: Code(s): I10 - Essential (primary) hypertension Status: Acute (6) Diabetes: Code(s): E11.9 - Type 2 diabetes mellitus without complications Status: Acute (7) Elevated serum creatinine: Code(s): R79.89 - Other specified abnormal findings of blood chemistry Status: Acute (8) Dementia: Code(s): F03.90 - Unspecified dementia, unspecified severity, without behavioral disturbance, psychotic disturbance, mood disturbance, and anxiety Status: Acute DS: Summary Hospital Course Reason for hospitalization: Central cord syndrome Ground level fall Leukocytosis Hypothyroidism Hypertension Diabetes Dementia Hospital Course: 83 year old female with past medical history of diabetes, GERD, hypertension, hyperlipidemia, and dementia presents to the hospital for an unwitnessed ground level fall. MRI c spine revealed canal stenosis and cord compression at C4-5, C5-6, and C6-7 with multilevel neural foraminal narrowing. Patient had burning pain to the bilateral upper extremities. She was started on gabapentin, tylenol and flexaril which alleviated her pain. Patient evaluated by neurosurgery who do not plan for emergent surgical intervention at this time. Per neurosurgery note patient should consider an outpatient surgery in the form of posterior cervical decompression vs posterior decompression and fusion to prevent worsening myelopathic symptoms. Patient will follow up with neurosurgery to discuss options in more detail. PT/OT to evaluate patient and recommend SNF placement. Discussed this in depth with patient and and they refuse placement and would like to go home with home health. Further discussed the importance of fall prevention and close monitoring of the patient when home. They state understanding. Patient to follow up with PCP in 1 week to discuss recent admission and new medications. Patient discharged home with home health in a stable condition. She is to follow up with neurosurgery and her PCP outpatient. Status at Discharge Functional status at discharge: uses cane/walker Time Spent with Patient Time attestation: Total time spent providing and/or coordinating discharge services: Time spent: Greater than 30 minutes Exam Narrative: AF HR 60 RR 20 SpO2 100 BP 126/50 General: frail female in no acute respiratory distress who is nontoxic appearing, lying semi recumbent in bed. HEENT: Normocephalic. Redness to forehead. Pupils equal round reactive to light. Extraocular movement intact. Sclera clear and anicteric. No facial asymmetry. Chest: Lungs are clear to auscultation bilaterally. No wheezes or crackles. CV: Heart was regular rate and rhythm. S1-S2. No murmurs, gallops, or rubs. Abd: Abdomen was soft. Nontender. Nondistended. Positive bowel sounds. No organomegaly or masses. Ext: No clubbing, cyanosis, or edema. 2+ DP pulses bilaterally. Neuro: Patient is alert and oriented x2 (baseline). Strength is 5/5 in both upper extremities. No pain with movement or palpation. Cranial nerves 2-12 are intact. Speech is clear. Psych: Normal mood and affect. Patient is pleasant and cooperative. Skin: Warm and dry. No rashes noted. DS: Data Data Completed and Pending Completed vargas
--- NOTE | 2023-11-28 08:17 | PC.NURSE ---
This RN retrieved patient's discharge packet (post discharge) to fax the information over to .
== END 2023-11-27 17:30 | disposition home health service (06) | DRG 52 ==
LOC: ANHED 07:03 → ANH3MEDSUR 07:54
PROVIDERS: Student in an Organized Health Care Education/Training Program; Admitting Provider Internal Medicine; Emergency Provider Emergency Medicine; PCP Physician Assistant; Visit Provider Internal Medicine
DX: S14.127A Central cord syndrome at C7 level of cervical spinal cord, initial encounter (principal); G95.9 Disease of spinal cord, unspecified; M48.02 Spinal stenosis, cervical region; D72.829 Elevated white blood cell count, unspecified; E11.9 Type 2 diabetes mellitus without complications; E03.9 Hypothyroidism, unspecified; E78.5 Hyperlipidemia, unspecified; F03.90 Unspecified dementia, unspecified severity, without behavioral disturbance, psychotic disturbance, mood disturbance, and anxiety; I10 Essential (primary) hypertension; K21.9 Gastro-esophageal reflux disease without esophagitis; W18.30XA Fall on same level, unspecified, initial encounter; Z79.84 Long term (current) use of oral hypoglycemic drugs; Z20.822 Contact with and (suspected) exposure to COVID-19
CPT/HCPCS: 36415; 70450; 71045; 72050; 72125; 72141; 73030; 73110; 73130; 80053; 83036; 84443; 85025; 87637; 96372; 96374; 97161; 97166; 99285; A9270; G0378; J1650; J2270

== ENCOUNTER 2024-10-27 16:38 | Inpatient (IN) | payer MEDICARE, BC, SELFPAY ==
--- NOTE | ~2024-10-27 | XR_ITS ---
XR chest 1V Ordering provider: Sindy Triana PA-C History: 84 years Female with . AMS . Comparison: November 26, 2023 FINDINGS: MEDIASTINUM: The cardiac silhouette is not enlarged. LUNGS: No infiltrates, effusions or pneumothorax. Subsegmental atelectatic area seen in the left lowe r lobe. OTHER: No free air under the diaphragm. Degenerative changes of the spine with mild scoliosis. IMPRESSION: No acute cardiopulmonary pathology. Reviewed, dictated and finalized at location A.
--- NOTE | ~2024-10-27 | US_ITS ---
EXAMINATION: US venous doppler [facility] DATE: 10/31/2024 16:57 INDICATION: swelling, pulmonary embolism. TECHNIQUE: Grayscale images without and with compression and Doppler images of the bilateral lower ex tremity veins were obtained. COMPARISON: CTPA, same date FINDINGS: The right common femoral vein, profunda (deep) femoral vein, femoral vein, popliteal vein, posterior tibial veins, gastrocnemius vein, and greater saphenous vein are patent. The right peroneal vein was not visualized. The left common femoral vein, profunda (deep) femoral vein, femoral vein are patent. The popliteal v ein, peroneal vein, posterior tibial veins, gastrocnemius vein, and greater saphenous vein were not v isualized, as the patient declined to continue the exam. IMPRESSION: Right peroneal vein not visualized, otherwise no DVT detected in the right lower extremity. Limited evaluation of the left lower extremity, patient declined to continue the examination. No left -sided lower extremity DVT detected proximal to the left popliteal vein. Reviewed, dictated and finalized at location K. IMPRESSION: Right peroneal vein not visualized, otherwise no DVT detected in the right lowe r extremity. Limited evaluation of the left lower extremity, patient declined to continue th e examination. No left-sided lower extremity DVT detected proximal to the left popliteal vein.
--- NOTE | ~2024-10-27 | CT_ITS ---
CT of the Abdomen and Pelvis: Indication: Abdominal pain Technique: 2.5 mm axial scans were obtained through the abdomen and pelvis following intravenous adm inistration of 100 cc of Omnipaque 350. Dose reduction technique was used on this scan by utilizing a utomated exposure control and iterative reconstruction technique. The dose-length product (DLP) was 6 89.29 mGy-cm. Findings: Scans through the lung bases demonstrate 4 mm right middle lobe nodule (axial image 10). T here is focal probable scarring or atelectasis at the lingula. There is a partially imaged large pulm onary embolus at the right main pulmonary artery extending into the right lower lobar pulmonary arter y. Possible segmental level emboli at the left lower lobe.. The liver, spleen, pancreas, gallbladder, adrenals and kidneys are within normal limits. There are at herosclerotic calcifications of the aorta. No lymphadenopathy. Extensive stool suggests constipation. No bowel obstruction. Possible mild stercoral proctitis. No ab scess or free air. Images through the pelvis were performed. Urinary bladder unremarkable. Status post hysterectomy. No pelvic mass seen. No ascites. Impression: Partially imaged right main pulmonary artery embolus extending to segmental branches in the right low er lobe. Suspected left-sided pulmonary emboli at least involving segmental branches in the left lowe r lobe. Dedicated CTA of the chest recommended. Constipation and possible mild stercoral proctitis. Reviewed, dictated and finalized at [facility]. Impression: Partially imaged right main pulmonary artery embolus extending to segmental bra nches in the right lower lobe. Suspected left-sided pulmonary emboli at least i nvolving segmental branches in the left lower lobe. Dedicated CTA of the chest recommended. Constipation and possible mild stercoral proctitis.
--- NOTE | ~2024-10-27 | CT_ITS ---
CTA chest PE protocol Ordering provider: Kevan Vargas MD History: 84 years Female with . pulmonary embolism . Comparison: None. Technique: CT angiogram chest was performed following timed intravenous injection of contrast. Thin s lice axial images and reformatted coronal images were obtained. Three dimensional reformatted images of the chest were also obtained using a [employer] workstation. . Automated exposure control and iterati ve reconstruction technique were employed. The dose-length product was 491.07 mGy-cm. 100 mL Omnipaqu e 350 was given IV. Findings: PULMONARY ARTERIES: Massive pulmonary embolism is seen with thrombi seen in the right main pulmonary artery and in the segmental and subsegmental branches of the right and left pulmonary arteries. right ventricular strain is seen. VISUALIZED THORACIC INLET: Normal. Extension of the thyroid posteri pardeep is seen. Possibility of enlarged parathyroid glands is not excluded. MEDIASTINUM: Aorta/coronary arteries: Mild atheromatous disease. Heart/other: The heart is not enlarged. Lymph nodes: No mediastinal or hilar adenopathy. LUNGS: Minimal groundglass appearance is seen in the upper and lower lobes suggestive of atelectasis versus early pneumonia versus pulmonary edema. Follow-up advised.No pulmonary nodules or masses. No effusio ns. No pneumothorax. VISUALIZED UPPER ABDOMEN: Sliding hiatus hernia with thickened distal esophagus wall suggestive of re flux esophagitis. Otherwise, the visualized upper abdomen is normal. MUSCULOSKELETAL: Soft tissues: The superficial soft tissues are normal. Bones: Age appropriate degenerative changes of the spine. IMPRESSION: 1. Massive pulmonary embolism. Right ventricular strain. 2. Bilateral groundglass appearance suggestive of atelectasis versus pneumonia versus pulmonary david a. Clinical correlation and follow-up advised. Physician: Kevan Vargas MD Was notified with the result of the patient at 12:00 PM on October 31, 2024 Reviewed, dictated and finalized at location A. IMPRESSION: 1. Massive pulmonary embolism. Right ventricular strain. 2. Bilateral groundglass appearance suggestive of atelectasis versus pneumonia versus pulmonary edema. Clinical correlation and follow-up advised. Physician: Kevan Vargas MD Was notified with the result of the patient at 12:00 PM on October 31, 2024
--- NOTE | ~2024-10-27 | CT_ITS ---
CT brain wo con Ordering provider: Sindy Triana PA-C History: 84 years Female with . AMS . Comparison: November 26, 2023 Technique: CT of the head without contrast. Radiation reduction technique utilized.The dose-length pr oduct was 605.33 mGy-cm. FINDINGS: BRAIN PARENCHYMA AND CSF SPACES: Moderate leukoaraiosis and diffuse cortical atrophy. Moderate athero matous disease. No midline shift, mass effect or hemorrhage. The brain parenchyma and CSF spaces are otherwise normal. VISUALIZED PARANASAL SINUSES: Well aerated. MASTOIDS: Well aerated. BONES: The bones appear intact. SOFT TISSUES: Visualized nasopharynx is normal. Superficial soft tissues are normal. IMPRESSION: No acute intracranial findings. Reviewed, dictated and finalized at location A.
--- OUTSIDE RECORDS SUMMARY | 2024-10-27 16:40 | XMS_ITS | Clinical Summary ---
[place] [facility] [place] [address] [facility] Address [address] [place] [address] Care Team Providers Care Tool Or Die Drawing Checker Name Role Phone Chelly Belcher Primary Care Provider [phone] Allergies Active Allergy Reactions Criticality Noted Date Comments Codeine Unknown 03/22/2018 unknown Codeine Phosphate Unknown 10/18/2018 Lovastatin Unknown 04/13/2017 Metronidazole Unknown 03/22/2018 unknown Penicillin V Unknown 03/22/2018 unknown Medications Ultra Thin Lancets 30 gauge misc USE TO TEST ONCE DAILY DIRECTED 100 each 3 04/16/20 20 Active blood glucose diagnostic (True Metrix Glucose Test Strip) stripIndications: Type 2 diabetes mellitus with hyperglycemia, without long-term current use of insulin (HCC) TEST ONCE DAILY DIRECTED 100 each 3 04/17/20 20 Active docusate sodium (STOOL SOFTENER ORAL) Take by mouth Active amLODIPine (NORVASC) 2.5 mg tablet TAKE 1 TABLET DAILY (DISCONTINUE RAMIPRIL) 90 tablet 3 12/18/19 24 Active bisoprolol-hydroC HLOROthiazide (ZIAC) 5-6.25 mg per tabletIndications :Hypertension associated with diabetes (HCC) TAKE 1 TABLET DAILY 90 tablet 3 02/22/20 24 Active pitavastatin magnesium (Zypitamag) 2 mg tabletIndications :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) Take 1 tablet (2 mg total) by mouth daily 90 tablet 3 04/04/20 24 Active blood-glucose meter (Accu-Chek Guide Me Glucose Mtr) miscIndications:T ype 2 diabetes mellitus with hyperlipidemia (HCC) USE DAILY 1 each 05/09/20 24 Active gabapentin (NEURONTIN) 400 mg capsule TAKE 1 CAPSULE THREE TIMES A DAY 90 capsule 11 07/11/20 24 Active levothyroxine (SYNTHROID) 75 mcg tabletIndications :Acquired hypothyroidism TAKE 1 TABLET EARLY IN THE MORNING BEFORE BREAKFAST 90 tablet 3 10/04/19 25 Active mirtazapine (REMERON) 15 mg tablet Take 1 tablet (15 mg total) by mouth nightly 90 tablet 2 10/06/19 25 Active levothyroxine (SYNTHROID) 75 mcg tabletIndications :Acquired hypothyroidism Take 1 tablet (75 mcg total) by mouth station engineer main line before breakfast 05/06/20 24 025 Discontinued mirtazapine (REMERON) 7.5 mg tabletIndications :Recurrent major depressive disorder, in partial remission Take 1 tablet (7.5 mg total) by mouth nightly 90 tablet 08/15/19 25 025 Discontinued Active Problems Problem Noted Date Diagnosed Date Frailty 10/16/2024 Assessment & Plan (10/16/2024 11:47 PM CDT): Patient's memory continues to decline. She has good care from her is in a safe environment with her needs provided for Medicare annual wellness visit, subsequent 10/16 Assessment & Plan (10/16/2024 11:49 PM CDT): Encouraged healthy lifestyle, good nutrition and exercise. Encouraged Calcium and Vitamin D and weight bearing exercise for bone health. Reviewed immunizations. Reviewed age appropirate screenings. Medicare Wellness Documentation is completed within the chart Abscess of left groin 05/06/2024 Assessment & Plan (05/06/2024 10:56 PM CDT): Patient with history of abscess of the groin with cellulitis. He was seen in the ER. Completing Bactrim course. Abscess was incised and it continues to resolve. It looks good today. Continue to keep the area clean and dry and follow up if she has increased drainage or redness. BMI 27.0-27.9,adult 04/26/2024 Assessment & Plan (10/16/2024 11:46 PM CDT): Weight/BMI is in healthy range. Continue healthy lifestyle to maintain. Assessment & Plan (04/26/2024 1:51 PM CDT): BMI Follow-up includes: Discussed diet and exercising counseling. Dysuria 04/17/2024 Assessment & Plan (04/17/2024 4:35 PM CDT): Patient with mild dysuria. Difficult for her to provide the symptoms if she is having UTI symptoms. Will check urine culture to rule out Finger numbness 12/20/2023 Assessment & Plan (12/20/2023 6:53 PM CDT): Patient is experiencing finger numbness since her fall. It seems to be the entire hand and it has a burning tingling sensation. She has follow-up already scheduled with neurosurgeon Dr. Jackson [facility] this week. She is actually getting good relief with gabapentin 400 mg t.i.d. and her symptoms are pretty manageable compared to where they started. Will await their recommendation. Fall 12/20/2023 Assessment & Plan (12/20/2023 6:52 PM CDT): Patient fell in the night. Discussed with her mechanisms to promote safety as she probably will continue wandering at night due to her Alzheimer's. He is going to get some baby knight so it will at least keep her in the room. Need for influenza vaccination 06/11/2023 Assessment & Plan (06/11/2023 11:21 PM SUPERVISOR DITCHING): Flu vaccine updated in the office today Moderate late onset Alzheimer's dementia with ag itation 05/21/2022 Assessment & Plan (10/16/2024 11:44 PM CDT): Patient with progressing dementia/Alzheimer symptoms. She has not been able to tolerate the Namenda or Aricept. as primary caregiver wants to continue to monitor. She does sleep well at night with the mirtazapine has tolerated well. She is continuing to lose weight. Willing to increase the Remeron to 15 to see if this helps perk her appetite a little bit. Discussed additional workup but he declines imaging invasive testing based on the progression of her Alzheimer's at this point. Provided POLST and discussed it but he wanted to take it home to review further. May bring it back at any time Assessment & Plan (05/06/2024 10:56 PM CDT): Patient with dementia. Her is able to provide history and continues to help care for her daily needs including safety. Assessment & Plan (04/17/2024 4:35 PM CDT): Patient with moderate to severe Alzheimer's disease. She is on Remeron to help settle the evenings and produce sleep. She is unable to tolerate Namenda or Aricept. Her is providing great care in the home. He is set up safety mechanisms including Knight to keep her from wandering at night. Her appetite is down so will increase the Remeron to 15 mg to see if this helps PERC it a little bit. Stressed the importance of giving her meals even if she says she is not hungry to try to consistently help her eat. Assessment & Plan (06/11/2023 11:19 PM SUPERVISOR DITCHING): Patient with Alzheimer's. She unable to tolerate the Namenda and the Aricept. Patient is well taken care of by her . She is in a safe environment. Assessment & Plan (11/18/2022 9:53 PM CDT): Patient with dementia. She is in a safe environment as her takes good care of her. They have decided against using any medication for the dementia Assessment & Plan (05/21/2022 1:40 PM SUPERVISOR DITCHING): This is a significant, separately identifiable problem that was evaluated and managed on the same day as the wellness exam Discussed with patient and more so with that there isn't really a specific medicine that is indicated for behavioral changes with dementia/sundowning. He is most concerned that she is having agitation when it is time to go to bed and then she will get up and down all night and go and watch TV and so forth and then come back to bed but not going back to sleep like she had been doing. Discussed options and reviewed Seroquel 25 mg taking a half tab to 1 tab daily an hour so before bedtime to see if this helps. Again reviewed this is off-label and there is not specific indications for this but it may offer some improvement with her symptoms. Reviewed risks benefits alternatives side effects and proper use. He will start with a half tab and titrate up and call in 4-6 week with an update. Abdominal pain 11/07/2021 Overview (11/07/2021): Added automatically from request for surgery [id number] Gastric ulcer 11/07/2021 Overview (11/07/2021): Added automatically from request for surgery [id number] Mouth sores 06/16/2021 Assessment & Plan (06/16/2021 10:07 PM SUPERVISOR DITCHING): Mouth sores of unknown etiology but they appear to be a viral. Will check an TAMARA, HSV cm 1 into for IgG and IgM. And a blood count. Will send a Magic mouthwash to try to help with comfort If HSV is positive she may benefit from starting a antiviral. Hiccups 05/11/2021 Assessment & Plan (11/18/2022 9:53 PM CDT): Hiccups have subsided at this point. Continue per GI Assessment & Plan (05/21/2022 1:38 PM SUPERVISOR DITCHING): Patient's states the seem to be a little bit better. Continue per GI. Assessment & Plan (12/02/2021 11:10 PM CDT): Continue perDr. Barzabarhi Assessment & Plan (05/11/2021 8:22 PM CDT): See dyspepsia and bad taste in mouth. Other fatigue 11/18/2020 Assessment & Plan (06/11/2023 11:21 PM SUPERVISOR DITCHING): Probably multifactorial. Check labs and followup to re-evaluate Assessment & Plan (11/18/2020 6:56 PM CDT): Probably multifactorial. Check labs and followup to re-evaluate Breast cancer screening by mammogram 11/18/2020 Assessment & Plan (11/18/2020 6:56 PM CDT): Mammogram order provided Chronic right shoulder pain 06/10/2020 Assessment & Plan (12/02/2021 11:10 PM CDT): Patient has had persistent shoulder pain. She is ready to see Ortho. She has had injections in the a same shoulder in the past will return to the same provider for further evaluation. Assessment & Plan (05/11/2021 8:25 PM CDT): This is a significant, separately identifiable problem that was evaluated and managed on the same day as the wellness exam Patient continues to have right shoulder pain. No specific injury. Has had injections in the past and thinks she did well. Would like to return to Ortho for further evaluation. Will defer x-rays to the orthopedist as they can do them in the office. Assessment & Plan (06/10/2020 2:16 PM SUPERVISOR DITCHING): Check xray due to fall in the bathroom. Pt is poor historian. Flu vaccine need 06/10/2020 Assessment & Plan (05/11/2021 8:22 PM CDT): Vaccine updated in office today Assessment & Plan (06/10/2020 2:30 PM SUPERVISOR DITCHING): Updated in the office Nonrheumatic aortic valve stenosis 06/10/2020 Overview (06/10/2020): December 2019 ECHO Assessment & Plan (11/18/2022 9:53 PM CDT): Continue per cardio. Murmur sounds the same today Assessment & Plan (06/10/2020 2:28 PM SUPERVISOR DITCHING): Will refer to cardio for further evaluation of this new dx Aortic stenosis. Dyspepsia 12/28/2019 Assessment & Plan (05/11/2021 8:21 PM CDT): Patient has had persistent bad taste in her mouth and hiccups or burping for the last 3-5 years. She has seen multiple providers for this including GI will get short- term improvement but never good control. Has been on Reglan, ppi eyes, antidepressants. Has been on and off metformin to see if it makes a difference. Nothing really seems to make a big difference. Will refer to [facility] for further evaluation and recommendations. She prefers to be seen in the [facility] location but her whole road. Assessment & Plan (06/10/2020 2:29 PM SUPERVISOR DITCHING): Continue per Dr. Hood. May restart PPI otc if desires Assessment & Plan (01/08/2020 2:35 PM CDT): Refer back to GI Murmur 12/28/2019 Assessment & Plan (01/08/2020 2:35 PM CDT): This is a significant, separately identifiable problem that was evaluated and managed on the same day as the wellness exam Newly found murmur. Check ECHO and pending results may need referral to cardio Itching 04/09/2019 Assessment & Plan (04/09/2019 11:40 PM CDT): Check ciliac labs and CMP Continue with antihistamine. Start mEdrol dose pack Diarrhea 04/09/2019 Assessment & Plan (04/09/2019 11:41 PM CDT): Check ciliac labs. Stools are soft/irregular and increased itching. Bad taste in mouth 02/04/2019 Assessment & Plan (12/02/2021 11:10 PM CDT): Continue per Dr. Griffin Assessment & Plan (05/11/2021 8:25 PM CDT): This is a significant, separately identifiable problem that was evaluated and managed on the same day as the wellness exam Patient has had persistent bad taste in her mouth and hiccups or burping for the last 3-5 years. She has seen multiple providers for this including GI will get short- term improvement but never good control. Has been on Reglan, ppi eyes, antidepressants. Has been on and off metformin to see if it makes a difference. Nothing really seems to make a big difference. Will refer to [facility] for further evaluation and recommendations. She prefers to be seen in the [facility] location but her whole road. Assessment & Plan (01/08/2020 2:33 PM CDT): Refer back to GI. Have tried stopping multiple medications without improvement. Assessment & Plan (04/09/2019 11:36 PM CDT): Pt feels improved with stopping the Namenda. Monitor. Assessment & Plan (02/04/2019 9:57 PM CDT): Unknown etiology. Pts thinks it started with the Namenda so will start with holding it. Monitor. Stage 3a chronic kidney disease 11/14/2018 Assessment & Plan (10/16/2024 11:45 PM CDT): Avoid nephrotoxic drugs including NSAIDs. Monitor labs. Assessment & Plan (04/17/2024 4:30 PM CDT): Avoid nephrotoxic drugs including NSAIDs. Monitor labs. Assessment & Plan (06/11/2023 11:19 PM SUPERVISOR DITCHING): Avoid nephrotoxic drugs including NSAIDs. Monitor labs. Assessment & Plan (11/18/2022 9:53 PM CDT): Avoid nephrotoxic drugs including NSAIDs. Monitor labs. Assessment & Plan (05/21/2022 1:37 PM SUPERVISOR DITCHING): Avoid nephrotoxic drugs including NSAIDs. Monitor labs. Assessment & Plan (05/11/2021 8:20 PM CDT): Avoid nephrotoxic drugs including NSAIDs. Monitor labs. Assessment & Plan (11/18/2020 6:55 PM CDT): Avoid nephrotoxic drugs including NSAIDs. Monitor labs. Assessment & Plan (01/08/2020 2:36 PM CDT): Avoid nephrotoxic drugs including NSAIDs. Monitor labs. Assessment & Plan (11/14/2018 10:26 PM CDT): Avoid nephrotoxic drugs including NSAIDs. Monitor labs. Gastroesophageal reflux disease without esophagi tis 11/01/2018 Assessment & Plan (11/18/2022 9:53 PM CDT): Continue to follow with GI. Currently stable without medication Assessment & Plan (11/14/2018 10:26 PM CDT): Continue PPI. Try adding Reglans to see if helps with sx/increased burping Hypertension associated with diabetes 10/31/2018 Assessment & Plan (10/16/2024 11:46 PM CDT): Bp is stable/in acceptable range for any co-morbidities. Encouraged to limit sodium intake and exercise for weight control. Continue bisoprolol hydrochlorothiazide and ramipril Assessment & Plan (04/17/2024 4:34 PM CDT): Bp is stable/in acceptable range for any co-morbidities. Encouraged to limit sodium intake and exercise for weight control. Continue bisoprolol hydrochlorothiazide and ramipril Assessment & Plan (06/11/2023 11:21 PM SUPERVISOR DITCHING): Bp is stable/in acceptable range for any co-morbidities. Encouraged to limit sodium intake and exercise for weight control. Continue bisoprolol hydrochlorothiazide and ramipril Assessment & Plan (11/18/2022 9:50 PM CDT): Bp is stable/in acceptable range for any co-morbidities. Encouraged to limit sodium intake and exercise for weight control. Continue bisoprolol hydrochlorothiazide and ramipril Assessment & Plan (05/21/2022 1:36 PM SUPERVISOR DITCHING): Bp is stable/in acceptable range for any co-morbidities. Encouraged to limit sodium intake and exercise for weight control. Continue bisoprolol hydrochlorothiazide and ramipril Assessment & Plan (12/02/2021 11:08 PM CDT): Bp is stable/in acceptable range for any co-morbidities. Encouraged to limit sodium intake and exercise for weight control. Continue bisoprolol hydrochlorothiazide ramipril and amlodipine Assessment & Plan (06/16/2021 10:07 PM SUPERVISOR DITCHING): Bp is stable/in acceptable range for any co-morbidities. Encouraged to limit sodium intake and exercise for weight control. Continue amlodipine Assessment & Plan (05/11/2021 8:20 PM CDT): Bp is stable/in acceptable range for any co-morbidities. Encouraged to limit sodium intake and exercise for weight control. Continue bisoprolol hydrochlorothiazide and ramipril Assessment & Plan (11/18/2020 6:54 PM CDT): Bp is stable/in acceptable range for any co-morbidities. Encouraged to limit sodium intake and exercise for weight control. 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 Bring accuchecks to office when instructed to do so. Check A1c about every 3-6 months. Take medication as prescribed. Get annual eye exam. Encouraged PRETTY/Statin if able to tolerate. Encouraged weight control and encouraged diabetic diet and exercise. Continue metformin. Assessment & Plan (01/08/2020 2:34 PM CDT): Bp is stable/in acceptable range for any co-morbidities. Encouraged to limit sodium intake and exercise for weight control. Continue bisoprolol/HCTZ and ramipril Assessment & Plan (04/09/2019 11:37 PM CDT): Bp is stable/in acceptable range for any co-morbidities. Encouraged to limit sodium intake and exercise for weight control. Assessment & Plan (11/14/2018 10:25 PM CDT): Bp is stable/in acceptable range for any co-morbidities. Encouraged to limit sodium intake and exercise for weight control. Encouraged tight control of co-morbidities. See individual dx for plan. Type 2 diabetes mellitus with hyperlipidemia Assessment & Plan (10/16/2024 11:46 PM CDT): Encouraged patient to follow low fat/low chol diet like the Mediterranean diet. Increase good fats in the diet. Increase exercise. Monitor labs as needed. Continue Livalo Assessment & Plan (04/17/2024 4:33 PM CDT): Encouraged patient to follow low fat/low chol diet like the Mediterranean diet. Increase good fats in the diet. Increase exercise. Monitor labs as needed. Continue Livalo Assessment & Plan (12/20/2023 6:53 PM CDT): Stressed importance of continued A1c control to minimize the jail effects of diabetes. Bring accuchecks to office when instructed to do so. Check A1c about every 3-6 months. Take medication as prescribed. Get annual eye exam. Encouraged PRETTY/Statin if able to tolerate. Encouraged weight control and encouraged diabetic diet and exercise. Encouraged patient to follow low fat/low chol diet like the Mediterranean diet. Increase good fats in the diet. Increase exercise. Monitor labs as needed. Continue atorvastatin and diabetes is now diet controlled. Assessment & Plan (06/11/2023 11:20 PM SUPERVISOR DITCHING): Stressed importance of continued A1c control to minimize the jail effects of diabetes. Bring accuchecks to office when instructed to do so. Check A1c about every 3-6 months. Take medication as prescribed. Get annual eye exam. Encouraged PRETTY/Statin if able to tolerate. Encouraged weight control and encouraged diabetic diet and exercise. Encouraged patient to follow low fat/low chol diet like the Mediterranean diet. Increase good fats in the diet. Increase exercise. Monitor labs as needed. Continue Livalo 2 mg Assessment & Plan (11/18/2022 9:51 PM CDT): Encouraged patient to follow low fat/low chol diet like the Mediterranean diet. Increase good fats in the diet. Increase exercise. Monitor labs as needed. Continue Livalo patient has tried multiple statins and this is the only 1 she can tolerate. Discussed [place] drugs Assessment & Plan (05/21/2022 1:36 PM SUPERVISOR DITCHING): Encouraged patient to follow low fat/low chol diet like the Mediterranean diet. Increase good fats in the diet. Increase exercise. Monitor labs as needed. Continue Livalo 2 Assessment & Plan (12/02/2021 11:08 PM CDT): Encouraged patient to follow low fat/low chol diet like the Mediterranean diet. Increase good fats in the diet. Increase exercise. Monitor labs as needed. Continue Livalo Assessment & Plan (05/11/2021 8:20 PM CDT): Encouraged patient to follow fat/low chol diet like the Mediterranean diet. Increase good fats in the diet. Increase exercise. Monitor labs as needed. Continue Livalo Assessment & Plan (11/18/2020 6:55 PM CDT): Encouraged patient to follow fat/low chol diet like the Mediterranean diet. Increase good fats in the diet. Increase exercise. Monitor labs as needed. Continue statin Assessment & Plan (06/10/2020 2:31 PM SUPERVISOR DITCHING): Encouraged patient to follow fat/low chol diet like the Mediterranean diet. Increase good fats in the diet. Increase exercise. Monitor labs as needed. On livalo Assessment & Plan (01/08/2020 2:38 PM CDT): Encouraged patient to continue low fat/low chol diet. Continue exercise. Increase good fats in the diet. Monitor labs as needed. Continue statin Assessment & Plan (11/14/2018 10:31 PM CDT): Encouraged patient to continue low fat/low chol diet. Continue exercise. Increase good fats in the diet. Monitor labs as needed. 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 Bring accuchecks to office when instructed to do so. Check A1c about every 3-6 months. Take medication as prescribed. Get annual eye exam. Encouraged PRETTY/Statin if able to tolerate. Encouraged weight control and encouraged diabetic diet and exercise. Avoid nephrotoxic drugs including NSAIDs. Monitor labs. Continue to tightly controlled blood pressure Assessment & Plan (04/17/2024 4:33 PM CDT): Stressed importance of continued A1c control to minimize the jail effects of diabetes. Bring accuchecks to office when instructed to do so. Check A1c about every 3-6 months. Take medication as prescribed. Get annual eye exam. Encouraged PRETTY/Statin if able to tolerate. Encouraged weight control and encouraged diabetic diet and exercise. Avoid nephrotoxic drugs including NSAIDs. Monitor labs. Continue off the metformin her A1c is down to 5.9 and based on her age and dementia she does not need anymore medication. Assessment & Plan (06/11/2023 11:20 PM SUPERVISOR DITCHING): Stressed importance of continued A1c control to minimize the jail effects of diabetes. Bring accuchecks to office when instructed to do so. Check A1c about every 3-6 months. Take medication as prescribed. Get annual eye exam. Encouraged PRETTY/Statin if able to tolerate. Encouraged weight control and encouraged diabetic diet and exercise. Avoid nephrotoxic drugs including NSAIDs. Monitor labs. Bp is stable/in acceptable range for any co-morbidities. Encouraged to limit sodium intake and exercise for weight control. Continue with bisoprolol hydrochlorothiazide and ramipril. Her diabetes is currently managed without medication. Assessment & Plan (11/18/2022 9:51 PM CDT): Avoid nephrotoxic drugs including NSAIDs. Monitor labs. Continue tightly controlled diabetes and blood pressure Assessment & Plan (05/21/2022 1:36 PM SUPERVISOR DITCHING): Bp is stable/in acceptable range for any co-morbidities. Encouraged to limit sodium intake and exercise for weight control. Avoid nephrotoxic drugs including NSAIDs. Monitor labs. Assessment & Plan (05/11/2021 8:20 PM CDT): Bp is stable/in acceptable range for any co-morbidities. Encouraged to limit sodium intake and exercise for weight control. Avoid nephrotoxic drugs including NSAIDs. Monitor labs. 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 Bring accuchecks to office when instructed to do so. Check A1c about every 3-6 months. Take medication as prescribed. Get annual eye exam. Encouraged PRETTY/Statin if able to tolerate. Encouraged weight control and encouraged diabetic diet and exercise. Assessment & Plan (11/18/2020 6:54 PM CDT): Bp is stable/in acceptable range for any co-morbidities. Encouraged to limit sodium intake and exercise for weight control. Avoid nephrotoxic drugs including NSAIDs. Monitor labs. Continue metformin Assessment & Plan (01/08/2020 2:35 PM CDT): Bp is stable/in acceptable range for any co-morbidities. Encouraged to limit sodium intake and exercise for weight control. Avoid nephrotoxic drugs including NSAIDs. Monitor labs. Control DM Assessment & Plan (11/14/2018 10:26 PM CDT): Bp is stable/in acceptable range for any co-morbidities. Encouraged to limit sodium intake and exercise for weight control. Stressed importance of continued A1c control to minimize the jail effects of diabetes. Bring accuchecks to office when instructed to do so. Check A1c about every 3-6 months. Take medication as prescribed. Get annual eye exam. Encouraged PRETTY/Statin if able to tolerate. Encouraged weight control and encouraged diabetic diet and exercise. Encouraged tight control of co-morbidities. See individual dx for plan. History of transient ischemic attack (TIA) 10/31 Assessment & Plan (11/14/2018 10:32 PM CDT): Continue statin, ASA and managing bp At high risk for falls 10/31/2018 Assessment & Plan (11/14/2018 10:31 PM CDT): Reviewed ways to decrease fall risk Gastroparesis due to DM 10/31/2018 Assessment & Plan (10/16/2024 11:45 PM CDT): Increased burping symptoms of gastroparesis. Continues to follow with the GI down at [facility] and [facility]. Currently managed without additional medications as the Reglan did not really help. Assessment & Plan (11/18/2022 9:51 PM CDT): GI symptoms have improved. Continue per GI. Assessment & Plan (05/21/2022 1:41 PM SUPERVISOR DITCHING): No change. Continue per GI. Continue to keep tight control of the diabetes which she is accomplishing this point. I am going to discontinue the metformin will also see if this results in a positive benefit regarding the gastroparesis. Assessment & Plan (01/08/2020 2:40 PM CDT): This is a significant, separately identifiable problem that was evaluated and managed on the same day as the wellness exam Refer back to GI. Not responding to Reglan. DM well controlled Assessment & Plan (04/09/2019 11:37 PM CDT): Uses Reglan prn. Control DM tightly Assessment & Plan (11/14/2018 10:25 PM CDT): Restart prn Reglan as it seemed to help the most with the increased burping. Has had extensive GI workup and would be glad to refer for second opinion. Pt and decline at this time. Vitamin D deficiency 10/31/2018 Assessment & Plan (12/02/2021 11:09 PM CDT): Supplement Assessment & Plan (01/08/2020 2:35 PM CDT): supplement Assessment & Plan (11/14/2018 10:26 PM CDT): continue supplements otc Abnormality of breast on screening mammography 0 10/31/2018 Overview (10/31/2018): History of multiple breastt biopsies - All Benign 2016 - Right 2008 - Left 2007 - Right Sciatica of right side 01/12/2018 Moderate episode of recurrent major depressive d isorder 11/10/2017 Assessment & Plan (10/16/2024 11:46 PM CDT): Depression symptoms seem to be stable. Will increase the Remeron more so to PERC the appetite. Refills sent to pharmacy Weakness of both lower extremities 11/10/2017 Type 2 diabetes mellitus wit h hyperglycemia, without long-term current use of insulin 03/17/2017 Assessment & Plan (10/16/2024 11:47 PM CDT): Stressed importance of continued A1c control to minimize the local company intermodal truck driver effects of diabetes. Bring accuchecks to office when instructed to do so. Check A1c about every 3-6 months. Take medication as prescribed. Get annual eye exam. Encouraged PRETTY/Statin if able to tolerate. Encouraged weight control and encouraged diabetic diet and exercise. A1c is not tightly controlled. A1c has increased above 9. She stopped the metformin as her A1c had been so well controlled. She has increased her intake of sweets and her is going to begin to help pull that back to see if we can get this better controlled with diet before starting another medication. Gait abnormality 12/13/2015 TIA (transient ischemic attack) 11/29/2015 Resolved Problems Problem Noted Date Diagnosed Date Resolved Date Hyperlipidemia 04/17/2024 04/17/2024 BMI 26.0-26.9,adult 04/04/2024 04/26/20 24 Assessment & Plan (04/04/2024 1:26 PM CDT): Weight/BMI is in healthy range. Continue healthy lifestyle to maintain. BMI 27.0-27.9,adult 05/25/2023 04/04/20 24 Assessment & Plan (12/20/2023 6:49 PM CDT): Weight/BMI is in healthy range. Continue healthy lifestyle to maintain. Assessment & Plan (05/25/2023 11:33 AM SUPERVISOR DITCHING): Weight/BMI is in healthy range. Continue healthy lifestyle to maintain. BMI 25.0-25.9,adult 11/18/2022 05/25/20 23 Assessment & Plan (11/18/2022 11:01 AM CDT): Weight/BMI is in healthy range. Continue healthy lifestyle to maintain. Need for vaccination 05/21/2022 023 Assessment & Plan (05/21/2022 1:38 PM SUPERVISOR DITCHING): Flu vaccine updated in the office today Burning with urination 01/30/202205/21 Assessment & Plan (01/30/2022 4:18 PM CDT): Pt presents with dysuria. Urine dip completed. Send urine culture. Antibiotic to pharmacy. Reviewed bladder care. BMI 26.0-26.9,adult 11/18/2021 11/19/19 23 Assessment & Plan (05/21/2022 1:38 PM SUPERVISOR DITCHING): Weight/BMI is in healthy range. Continue healthy lifestyle to maintain. Assessment & Plan (11/18/2021 3:19 PM CDT): Weight/BMI is in healthy range. Continue healthy lifestyle to maintain. Obesity (BMI 30-39.9) 05/27/20212021 Assessment & Plan (05/27/2021 10:48 AM SUPERVISOR DITCHING): Obesity is unchanged. Discussed the patient's BMI. The BMI is above average. BMI management plan is completed. BMI Follow-up includes: nutrition counseling, exercise counseling and education provided. BMI 32.0-32.9,adult 05/27/2021 11/19/19 22 Assessment & Plan (05/27/2021 10:48 AM SUPERVISOR DITCHING): Obesity is unchanged. Discussed the patient's BMI. The BMI is above average. BMI management plan is completed. BMI Follow-up includes: nutrition counseling, exercise counseling and education provided. Obesity (BMI 30-39.9) 05/08/20212020 Assessment & Plan (05/08/2021 2:55 PM CDT): Obesity is unchanged. Discussed the patient's BMI. The BMI is above average. BMI management plan is completed. BMI Follow-up includes: nutrition counseling, exercise counseling and education provided. BMI 32.0-32.9,adult 05/08/2021 05/27/20 Assessment & Plan (05/11/2021 8:22 PM CDT): Obesity is unchanged. Discussed the patient's BMI. The BMI is above average. BMI management plan is completed. BMI Follow-up includes: nutrition counseling, exercise counseling and education provided. Medicare annual wellness visit, subsequent 05/08/2021 04/17/2024 Assessment & Plan (06/11/2023 11:20 PM SUPERVISOR DITCHING): Encouraged healthy lifestyle, good nutrition and exercise. Encouraged Calcium and Vitamin D and weight bearing exercise for bone health. Reviewed immunizations. Reviewed age appropirate screenings. Medicare Wellness Documentation is completed within the chart Assessment & Plan (05/21/2022 1:38 PM SUPERVISOR DITCHING): Encouraged healthy lifestyle, good nutrition and exercise. Encouraged Calcium and Vitamin D and weight bearing exercise for bone health. Reviewed immunizations. Reviewed age appropirate screenings. Medicare Wellness Documentation is completed within the chart Assessment & Plan (05/11/2021 8:22 PM CDT): Encouraged healthy lifestyle, good nutrition and exercise. Encouraged Calcium and Vitamin D and weight bearing exercise for bone health. Reviewed immunizations. Reviewed age appropirate screenings. Medicare Wellness Documentation is completed within the chart Obesity (BMI 30-39.9) 10/29/20202020 Assessment & Plan (10/29/2020 10:47 AM CDT): Obesity is unchanged. Discussed the patient's BMI. The BMI is above average. BMI management plan is completed. BMI Follow-up includes: nutrition counseling, exercise counseling and education provided. BMI 31.0-31.9,adult 10/29/2020 05/08/20 Assessment & Plan (10/29/2020 10:47 AM CDT): Obesity is unchanged. Discussed the patient's BMI. The BMI is above average. BMI management plan is completed. BMI Follow-up includes: nutrition counseling, exercise counseling and education provided. Need for 23-polyvalent pneum ococcal polysaccharide vaccine 01/08/2020 06/10/2020 Assessment & Plan (01/08/2020 2:40 PM CDT): Updated in office today Medicare annual wellness visit, subsequent 12/28/2019 06/10/2020 Assessment & Plan (01/08/2020 2:39 PM CDT): Encouraged healthy lifestyle, good nutrition and exercise. Encouraged Calcium and Vitamin D and weight bearing exercise for bone health. Reviewed immunizations Reviewed age appropirate screenings. Documentation is on the chart Acquired hypothyroidism 12/28/201904/12 Assessment & Plan (06/11/2023 11:21 PM SUPERVISOR DITCHING): Continue levothyroxine. Monitor labs. Assessment & Plan (11/18/2022 9:53 PM CDT): Continue levothyroxine. Monitor labs. Assessment & Plan (05/21/2022 1:37 PM SUPERVISOR DITCHING): Continue levothyroxine 75 mcg. Continue to monitor labs. Assessment & Plan (12/02/2021 11:10 PM CDT): Continue levothyroxine. Monitor labs. Assessment & Plan (11/18/2020 6:55 PM CDT): Continue levothyroxine. Monitor labs. Assessment & Plan (06/10/2020 2:29 PM SUPERVISOR DITCHING): Continue levothyroxine Assessment & Plan (01/08/2020 2:38 PM CDT): Continue levothyroxine UTI symptoms 05/11/2019 01/08/2020 Assessment & Plan (05/11/2019 1:04 PM CDT): Send urine for culture. Send Macrobid. Obesity (BMI 30-39.9) 04/25/20192019 Assessment & Plan (04/25/2019 3:27 PM CDT): Obesity is unchanged. Discussed the patient's BMI. The BMI is above average. BMI management plan is completed. BMI Follow-up includes: nutrition counseling, exercise counseling and education provided. Burning with urination 04/25/201901/07 Assessment & Plan (04/25/2019 8:49 PM CDT): Reviewed wiping Send for culture. Macrobid bid x 5days. Followup if increased sxs. Need for immunization against influenza 04/09/2019 01/08/2020 Assessment & Plan (04/09/2019 11:40 PM CDT): Pt wants predpack for puritis. Will plan flu vaccine after completing the pred pack. BMI 31.0-31.9,adult 11/01/2018 10/30/19 21 Assessment & Plan (06/10/2020 2:14 PM SUPERVISOR DITCHING): Obesity is unchanged. Discussed the patient's BMI. The BMI is above average. BMI management plan is completed. BMI Follow-up includes: nutrition counseling, exercise counseling and education provided. Assessment & Plan (12/28/2019 9:14 AM CDT): Continue healthy lifestyle to continue healthy weight Assessment & Plan (04/25/2019 3:26 PM CDT): Obesity is unchanged. Discussed the patient's BMI. The BMI is above average. BMI management plan is completed. BMI Follow-up includes: nutrition counseling, exercise counseling and education provided. Assessment & Plan (04/09/2019 11:38 PM CDT): Obesity is unchanged. Discussed the patient's BMI. The BMI is above average. BMI management plan is completed. BMI Follow-up includes: nutrition counseling, exercise counseling and education provided. Assessment & Plan (01/24/2019 2:04 PM CDT): Weight/BMI is in healthy range. Continue healthy lifestyle to maintain. Assessment & Plan (11/14/2018 10:31 PM CDT): Weight/BMI is in healthy range. Continue healthy lifestyle to maintain. Type 2 diabetes mellitus wit h complication, without long-term current use of insulin 10/31/2018 04/17/2024 Assessment & Plan (06/11/2023 11:20 PM SUPERVISOR DITCHING): Stressed importance of continued A1c control to minimize the local company intermodal truck driver effects of diabetes. Bring accuchecks to office when instructed to do so. Check A1c about every 3-6 months. Take medication as prescribed. Get annual eye exam. Encouraged PRETTY/Statin if able to tolerate. Encouraged weight control and encouraged diabetic diet and exercise. Will go ahead and stop the metformin as her A1c is very tightly controlled. Recheck labs in 4-6 months. Assessment & Plan (11/18/2022 9:50 PM CDT): Stressed importance of continued A1c control to minimize the jail effects of diabetes. Bring accuchecks to office when instructed to do so. Check A1c about every 3-6 months. Take medication as prescribed. Get annual eye exam. Encouraged PRETTY/Statin if able to tolerate. Encouraged weight control and encouraged diabetic diet and exercise. A1c is been tightly controlled. Awaiting labs to confirm continued control. Discussed stopping the metformin. said they tried and felt like her sugars went up so restarted it. Will continue to monitor Assessment & Plan (05/21/2022 1:42 PM SUPERVISOR DITCHING): This is a significant, separately identifiable problem that was evaluated and managed on the same day as the wellness exam Stressed importance of continued A1c control to minimize the local company intermodal truck driver effects of diabetes. Bring accuchecks to office when instructed to do so. Check A1c about every 3-6 months. Take medication as prescribed. Get annual eye exam. Encouraged PRETTY/Statin if able to tolerate. Encouraged weight control and encouraged diabetic diet and exercise. Patient's A1c is tightly controlled at 5.9. This is down from a year ago from 6.3. She is been doing metformin 500 mg daily. Her helps with her food intake and she is very limited on any sugars. Recommend discontinuing the metformin as it is probably no longer necessary. Advised at this point based on her age, keeping the A1c between 7 and 8 is very acceptable. There is no reason to continue to push it down. He is in agreement with the plan and will recheck A1c in about 3 months prior to her next visit. Assessment & Plan (12/02/2021 11:08 PM CDT): Stressed importance of continued A1c control to minimize the local company intermodal truck driver effects of diabetes. Bring accuchecks to office when instructed to do so. Check A1c about every 3-6 months. Take medication as prescribed. Get annual eye exam. Encouraged PRETTY/Statin if able to tolerate. Encouraged weight control and encouraged diabetic diet and exercise. Continue metformin as A1c is at goal Assessment & Plan (11/18/2020 6:55 PM CDT): Stressed importance of continued A1c control to minimize the jail effects of diabetes. Bring accuchecks to office when instructed to do so. Check A1c about every 3-6 months. Take medication as prescribed. Get annual eye exam. Encouraged PRETTY/Statin if able to tolerate. Encouraged weight control and encouraged diabetic diet and exercise. Continue metformin Assessment & Plan (01/08/2020 2:36 PM CDT): Stressed importance of continued A1c control to minimize the jail effects of diabetes. Bring accuchecks to office when instructed to do so. Check A1c about every 3-6 months. Take medication as prescribed. Get annual eye exam. Encouraged PRETTY/Statin if able to tolerate. Encouraged weight control and encouraged diabetic diet and exercise. Continue metformin. Due for DM eye exam Assessment & Plan (04/21/2019 10:27 PM CDT): Pt chose not to get A1c while at the lab because [facility] told her it wouldn't be covered. A1c 6.0 Well controlled. Stable with Metformin. Assessment & Plan (11/14/2018 10:30 PM CDT): Stressed importance of continued A1c control to minimize the local company intermodal truck driver effects of diabetes. Bring accuchecks to office when instructed to do so. Check A1c about every 3-6 months. Take medication as prescribed. Get annual eye exam. Encouraged PRETTY/Statin if able to tolerate. Encouraged weight control and encouraged diabetic diet and exercise. Continue metformin Hypothyroidism, unspecified 10/31/2018 01/08/2020 Assessment & Plan (01/08/2020 2:38 PM CDT): Continue levothyroxine Assessment & Plan (11/14/2018 10:27 PM CDT): Continue levothyroxine Other fatigue 10/31/2018 06/10/2020 Assessment & Plan (11/14/2018 10:32 PM CDT): Probably multifactorial. Check labs and followup to re-evaluate Late onset Alzheimer's disea se without behavioral disturbance 10/31/2018 05/21/2022 Assessment & Plan (12/02/2021 11:09 PM CDT): Unable to tolerate medication for her Alzheimer's. She lives with her and he is good it keeping her safe in the home setting. Assessment & Plan (11/18/2020 6:54 PM CDT): Patient's stopped all her Alzheimer's medicine as he was worried she was having side effects. Will continue to monitor for progression. Assessment & Plan (06/10/2020 2:26 PM SUPERVISOR DITCHING): Sxs are progressing. She did not tolerate medications so discontinued. Assessment & Plan (01/08/2020 2:33 PM CDT): Memory continues to fail. She is happily demented. had her stop the Aricept. Declines any further trials of medications. Assessment & Plan (04/09/2019 11:37 PM CDT): Happy with Aricept. Namenda causea bad taste in mouth so discontinued and will monitor. Assessment & Plan (11/14/2018 10:25 PM CDT): Stable. Continue Aricept and namenda Sleeping well. Continue Remeron. Recurrent major depressive d isorder, in partial remission 10/31/2018 10/16/2024 Assessment & Plan (12/20/2023 6:54 PM CDT): Symptoms are stable with mirtazapine. Refills to pharmacy Assessment & Plan (11/18/2022 9:52 PM CDT): Depression symptoms are stable. She does have dementia but they choose to not use medication at this point Assessment & Plan (12/02/2021 11:09 PM CDT): Stable without medication continue to monitor. Assessment & Plan (01/08/2020 2:39 PM CDT): Declines medication. Will continue to monitor Assessment & Plan (11/14/2018 10:32 PM CDT): Continue Remeron. Sxs are stable per Alzheimer's disease with early onset (CODE) 08/19/2017 10/16/2024 Memory deficit 08/11/2017 10/16/2024 Hyperlipidemia 05/11/2021 Encounters Date Type Department Care Team Description 10/05/2024 1:30 PM CDT Office Visit [facility] [address] [place] [phone] Chelly Belcher PA Medicare annual wellness visit, subsequent (Primary Dx); Type 2 diabetes mellitus with hyperglycemia, without long-term current use of insulin (HCC); Frailty; Alzheimer's disease with early onset (CODE) (HCC); Moderate late onset Alzheimer's dementia with agitation (HCC); Moderate episode of recurrent major depressive disorder (HCC); Hypertension associated with diabetes (HCC); 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); 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); Gastroparesis due to DM (HCC); Stage 3a chronic kidney disease (HCC); BMI 27.0-27.9,adult 09/24/2024 Results Follow-Up [address] [place] [address] Chelly Belcher PA 09/20/2024 10:45 AM CDT Office Visit [facility] [address] [place] [address] [address] [place] [address] Avelino Sky MD Rotator cuff tear arthropathy of right shoulder (Primary Dx); Chronic left shoulder pain 09/15/2024 Orders Only [address] [place] [address] Chelly Belcher PA Hypertension associated with diabetes (HCC) (Primary Dx); 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); 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); Vitamin D deficiency; Other fatigue; Stage 3a chronic kidney disease (HCC) 08/15/[address] [place] [address] Chelly Belcher PA from Last 3 Months Immunizations Immunization Administration Dates Next Due Influenza, Quadrivalent, Hig h Dose, Preservative Free, Intrr 05/25/2023,05/21/2022,05/08/2021,05/02 Influenza, Quadrivalent, Spl it, Preservative Free, Intramuscular 04/13/2017 Influenza, Trivalent, High D ose, Split, Preservative Free, Intramuscular 04/20/2024,04/20/2019,05/04/2018,04/24,04/18/2015 Influenza, Trivalent, IM (MDV) 04/05/2014,2012,05/04/2012 Pneumococcal Conjugate PCV 13 06/30/2018, 017 Pneumococcal Polysaccharide PPV23 12/28/2019 ZOSTER LIVE 08/30/2012 Surgical History Surgery Date Site/Laterality Comments HYSTERECTOMY REPLACEMENT TOTAL KNEE BILATERAL UPPER GASTROINTESTINAL ENDOSCOPY COLONOSCOPY Medical History Medical History Date Comments Alzheimer's dementia (HCC) Diabetes (HCC) Hypertension Hyperlipidemia Thyroid disease Migraines Depression Chronic constipation GERD (gastroesophageal reflux disease) Hypothyroidism Type 2 diabetes mellitus (HCC) UTI (urinary tract infection) 01/27/2022 Family History Medical History Relation Name Comments Heart attack Father Hypertension Father Diabetes Mother Relation Name Status Comments Father Mother Social History Tobacco Use Types Packs/Day Years Used Date Smoking Tobacco: Never Smokeless Tobacco: Never Tobacco Cessation:Counseling Given: Not Answered Alcohol Use Standard Drinks/Week Comments Never 0 (1 standard drink = 0.6 oz pur e alcohol) AUDIT-C Answer Date Recorded Q1: How often do you have a drink containing alcohol? Never 10/05/2024 Q2: How many drinks containi ng alcohol do you have on a typical day when you are drinking? Patient does not drink Q3: How often do you have si x or more drinks on one occasion? Never 10/05/2024 PHQ-2 Answer Date Recorded PHQ-2 Total Score (If total score is 3 or more points, staff should administer the PHQ-9) 0 10/05/2024 Comments No Sex and Gender Information Value Date Recorded Sex Assigned at Not on file Legal Sex Female 8:24 AM CDT Gender Identity Not on file Sexual Orientation Not on file Occupation Industry Job Start Date Job End Date retired Not on file Not on file Not on file Obstetrics History Last Filed Vital Signs Vital Sign Reading Time Taken Comments Blood Pressure 126/82 10/05/2024 1:09 PM CDT Pulse 51 10/05/2024 1:09 PM CDT Temperature 36.6 C (97.9 F) 10/05/2024 1:09 PM CDT Respiratory Rate 16 05/21/2022 11:15 AM SUPERVISOR DITCHING Oxygen Saturation 95% 10/05/2024 1:09 PM CDT Inhaled Oxygen Concentration - - Weight 69.2 kg (152 lb 8 oz) 06/27/2024 11:43 AM SUPERVISOR DITCHING Height 157.5 cm (5' 2 ) 10/05/2024 1:09 PM CDT Body Mass Index 27.89 06/27/2024 11:43 AM SUPERVISOR DITCHING Plan of Treatment Health Maintenance Due Date Last Done Comments DTaP/Tdap/Td Vaccine (1 - Tdap) 1951 Hepatitis B Screening 1958 Zoster Vaccine (2 of 3) 10/25/2012 08/30/2012 Foot Exam 04/05/2020 04/05/2019 Osteoporosis Screening-Bone Density Scan 10/15/2020 10/15/2018 Dilated Eye Exam 12/20/2023 12/19/2022, 03/2023, 09/13/2021 Covid-19 Vaccine (2023- 5 season) 2024 12/11/2021, 05/07/2021, 09/11/2020, Additional history exists Hemoglobin A1C 03/26/2025 09/23/2024, 05/0 12/2023, 11/18/2022, Additional history exists Albumin Creatinine Ratio, Urine 09/23/2025 , 11/18/2022 Lipid Panel 09/23/2025 09/23/2024, 05/0 12/2023, 11/18/2022, Additional history exists eGFR 09/23/2025 09/23/2024, 05/0 12/2023, 11/18/2022, Additional history exists Depression Screening 10/05/2025 10/05/2024, 04/04/2024, 12/09/2023, Additional history exists Fall Risk Assessment 10/05/2025 10/05/2024, 12/09/2023, 05/25/2023, Additional history exists Well Visit 65+ 10/05/2025 10/05/2024, 05/13, 05/21/2022, Additional history exists Pneumococcal vaccine 65+ Completed 020, 06/30/2018, 04/13/2017 Influenza Vaccine Completed 04/20/2024, , 05/21/2022, Additional history exists Procedures Procedure Name Priority Date/Time Associated Diagnosis Comments VITAMIN D 25 HYDROXY Routine 09/23/2024 9:10 AM CDT Vitamin D deficiency ALBUMIN CREATININE RATIO, URINE Routine 09/23/2024 9:10 AM CDT 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) TSH Routine 09/23/2024 9:06 AM CDT Other fatigue HEMOGLOBIN A1C Routine 09/23/2024 9:06 AM CDT 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) LIPID PANEL Routine 09/23/2024 9:06 AM CDT 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) CBC WITH AUTO DIFFERENTIAL Routine 09/23/2024 9:06 AM CDT Other fatigue COMPREHENSIVE METABOLIC PANEL Routine 09/23/2024 9:06 AM CDT Hypertension associated with diabetes (HCC) Stage 3a chronic kidney disease (HCC) NC ARTHROCENTESIS ASPIR&/INJ MAJOR JT/BURSA W/O US Routine 09/20/2024 10:45 AM CDT Rotator cuff tear arthropathy of right shoulder Chronic left shoulder pain HM DIABETES EYE EXAM Routine 12/19/2022 10:51 AM CDT DEXA AXIAL SKELETON BONE DENSITY 1 OR MORE SITES 10/15/2018 1:17 PM CDT from Last 3 Months or Most Recently Relevant to Health Maintenance Results * (ABNORMAL) Albumin Creatinine Ratio, Urine (09/23/2024 9:10 AM CDT) Creatinine, ur 80 20 - 275 mg/dL [facility] Microalbumin, ur 35.2 See Note: mg/dL [facility] Comment: Reference Range: Reference Range Not established Verified by repeat analysis. Microalbumin/creat ratio 440(H) <30 mg/g creat [facility] Comment: The ADA defines abnormalities in albumin excretion as follows: Albuminuria Category Result (mg/g creatinine) Normal to Mildly increased <30 Moderately increased 30-299 Severely increased > OR = 300 The ADA recommends that at least two of three specimens collected within a 3-6 month period be abnormal before considering a patient to be within a diagnostic category. Urine 09/23/2024 9:10 AM CDT 09/23/2024 9:10 AM CDT Narrative [facility] - 09/24/2024 7:34 AM CDT FASTING:YES FASTING: YES Chelly JARVIS LAB URINE ORDERABLES Final Result [facility] [address] [place] [address] * Vitamin D 25 hydroxy (09/23/2024 9:10 AM CDT) [facility] Vitamin D 25-OH 34 30 - 100 ng/mL [facility] Comment: Vitamin D Status 25-OH Vitamin D: Deficiency: <20 ng/mL Insufficiency: 20 - 29 ng/mL Optimal: > or = 30 ng/mL For 25-OH Vitamin D testing on patients on D2-supplementation and patients for whom quantitation of D2 and D3 fractions is required, the QuestAssureD(TM) 25-OH VIT D, (D2,D3), LC/MS/MS is recommended: order code 84003 (patients >2yrs). See Note 1 Note 1 For additional information, please refer to http://education.Sproxil/faq/WQU752 (This link is being provided for informational/ educational purposes only.) Blood 09/23/2024 9:10 AM CDT 09/23/2024 9:10 AM CDT Narrative [facility] - 09/24/2024 7:34 AM CDT FASTING:YES FASTING: YES Chelly JARVIS LAB BLOOD ORDERABLES Final Result [facility] [address] [place] [address] * (ABNORMAL) CBC with auto differential (09/23/2024 9:06 AM CDT) [facility] WBC 9.7 3.8 - 10.8 Thousand/u L [facility] RBC, POC 3.60(L) 3.80 - 5.10 Million/uL [facility] Hgb 10.9(L) 11.7 - 15.5 g/dL [facility] Hct 34.5(L) 35.0 - 45.0 % [facility] MCV 95.8 80.0 - 100.0 fL [facility] MCH 30.3 27.0 - 33.0 pg [facility] MCHC 31.6(L) 32.0 - 36.0 g/dL [facility] Comment: For adults, a slight decrease in the calculated MCHC value (in the range of 30 to 32 g/dL) is most likely not clinically significant; however, it should be interpreted with caution in correlation with other red cell parameters and the patient's clinical condition. Rdw 12.4 11.0 - 15.0 % [facility] Platelets 275 140 - 400 Thousand/u L [facility] MPV 10.3 7.5 - 12.5 fL [facility] Neutrophils, abs 6,809 1,500 - 7,800 cells/uL [facility] Lymphocytes, abs 2,144 850 - 3,900 cells/uL [facility] Monocyte abs 689 200 - 950 cells/uL [facility] Eosinophils, abs 39 15 - 500 cells/uL [facility] Basophils, abs 19 0 - 200 cells/uL [facility] Neutrophils 70.2 % [facility] Lymphocyte pct 22.1 % [facility] Monocytes 7.1 % [facility] Eosinophils 0.4 % [facility] Basophils 0.2 % [facility] Blood 09/23/2024 9:06 AM CDT 09/23/2024 9:07 AM CDT Narrative [facility] - 09/24/2024 1:56 AM CDT FASTING:YES FASTING: YES Chelly JARVIS LAB BLOOD ORDERABLES Final Result [facility] [address] [place] [address] * TSH (09/23/2024 9:06 AM CDT) Pathologist [facility] TSH 0.53 0.40 - 4.50 mIU/L [facility] Blood 09/23/2024 9:06 AM CDT 09/23/2024 9:07 AM CDT Narrative [facility] - 09/24/2024 1:56 AM CDT FASTING:YES FASTING: YES Chelly JARVIS LAB BLOOD ORDERABLES Final Result Performing Organization Address [facility] Co de Phone Number [facility] [address] [place] [address] * (ABNORMAL) Hemoglobin A1c (09/23/2024 9:06 AM CDT) Hgb A1C 9.3(H) <5.7 % of total Hgb [facility] Comment: For someone without known diabetes, a hemoglobin A1c value of 6.5% or greater indicates that they may have diabetes and this should be confirmed with a follow-up test. For someone with known diabetes, a value <7% indicates that their diabetes is well controlled and a value greater than or equal to 7% indicates suboptimal control. A1c targets should be individualized based on duration of diabetes, age, comorbid conditions, and other considerations. Currently, no consensus exists regarding use of hemoglobin A1c for diagnosis of diabetes for children. Blood 09/23/2024 9:06 AM CDT 09/23/2024 9:07 AM CDT Narrative [facility] - 09/24/2024 1:56 AM CDT FASTING:YES FASTING: YES Chelly JARVIS LAB BLOOD ORDERABLES Final Result Performing Organization Address [facility] de Phone Number [facility] [address] [place] [address] * (ABNORMAL) Lipid panel (09/23/2024 9:06 AM CDT) Cholesterol 190 <200 mg/dL [facility] HDL 61 > OR = 50 mg/dL [facility] Triglycerides 192(H) <150 mg/dL [facility] LDL 100(H) mg/dL (calc) [facility] Comment: Reference range: <100 Desirable range <100 mg/dL for primary prevention; <70 mg/dL for patients with CHD or diabetic patients with > or = 2 CHD risk factors. LDL-C is now calculated using the Jorge-Stahl calculation, which is a validated novel method providing better accuracy than the Friedewald equation in the estimation of LDL-C. Jorge SS et al. IESHA. 2013;310(19): 0674-9060 (http://education.Sproxil/faq/HOM207) Chol/HDL ratio 3.1 <5.0 (calc) [facility] Non-HDL, (LDL+VLDL) 129 <130 mg/dL (calc) [facility] Comment: For patients with diabetes plus 1 major ASCVD risk factor, treating to a non-HDL-C goal of <100 mg/dL (LDL-C of <70 mg/dL) is considered a therapeutic option. Blood 09/23/2024 9:06 AM CDT 09/23/2024 9:07 AM CDT Narrative [facility] - 09/24/2024 1:56 AM CDT FASTING:YES FASTING: YES Chelly JARVIS LAB BLOOD ORDERABLES Final Result [facility] [address] [place] [address] * (ABNORMAL) Comprehensive metabolic panel (09/23/2024 9:06 AM CDT) Glucose 332(H) 65 - 99 mg/dL [facility] Comment: Fasting reference interval For someone without known diabetes, a glucose value >125 mg/dL indicates that they may have diabetes and this should be confirmed with a follow-up test. BUN 34(H) 7 - 25 mg/dL [facility] Creatinine 1.18(H) 0.60 - 0.95 mg/dL [facility] eGFR 45(L) > OR = 60 mL/min/1.7 3m2 [facility] BUN/creat ratio 29(H) 6 - 22 (calc) [facility] Sodium 138 135 - 146 mmol/L [facility] Potassium, pl 4.0 3.5 - 5.3 mmol/L [facility] Chloride 97(L) 98 - 110 mmol/L [facility] CO2 33(H) 20 - 32 mmol/L [facility] Calcium 9.5 8.6 - 10.4 mg/dL [facility] Protein, sr 7.0 6.1 - 8.1 g/dL [facility] Albumin 4.0 3.6 - 5.1 g/dL [facility] GLOBULIN 3.0 1.9 - 3.7 g/dL (calc) [facility] Alb/glob ratio 1.3 1.0 - 2.5 (calc) [facility] Bilirubin, total 0.6 0.2 - 1.2 mg/dL [facility] Alk phos 119 37 - 153 U/L [facility] AST 20 10 - 35 U/L [facility] ALT (SGPT) 19 6 - 29 U/L [facility] Blood 09/23/2024 9:06 AM CDT 09/23/2024 9:07 AM CDT Narrative [facility] - 09/24/2024 1:56 AM CDT FASTING:YES FASTING: YES Chelly JARVIS LAB BLOOD ORDERABLES Final Result [facility] [address] [place] [address] * NC ARTHROCENTESIS ASPIR&/INJ MAJOR JT/BURSA W/O US (09/20/2024 10:45 AM CDT) Narrative Avelino Sky MD - 09/20/2024 10:45 AM CDT Avelino Sky MD 09/20/2024 12:28 PM Large Joint (Hip, Knee, Shoulder) Injection: bilateral subacromial bursa Performed by: Avelino Sky MD Authorized by: Avelino Sky MD Large Joint Injection/Aspiration: Consent Given by: Patient Written consent obtained: Yes Supporting Documentation: Indications: Pain Procedure Details: Location: Shoulder Site: Bilateral subacromial bursa Prep: patient was prepped using a clean technique (The skin was anesthetized with ethyl chloride spray prior to the injections.) Needle Size: 25 G Medications Right Large Joint Injection: 2 mL lidocaine 10 mg/mL (1 %); 40 mg triamcinolone 40 mg/mL Medications Left Large Joint Injection: 2 mL lidocaine 10 mg/mL (1 %); 40 mg triamcinolone 40 mg/mL Patient tolerance: Patient tolerated the procedure well with no immediate complications us Avelino Sky MD IN CLINIC/BEDSIDE ORDERABL ES Final Result * HM DIABETES EYE EXAM (12/19/2022 10:51 AM CDT) us Historical Provider HEALTH MAINTENANCE Final Result * Dexa Axial Skeleton Bone Density 1 or 2 Site (10/15/2018 1:17 PM CDT) Anatomical Region Laterality Modality Body N/A Radiographic Kiara ging 10/15/2018 1:40 PM CDT Narrative 10/15/2018 1:42 PM CDT Patient Name: DANIKA MIRANDA Ordering Dr: Chelly Belcher PA-C, D.O.B: 1940 Exam Date: 10/15/181316 Age: 78 Sex: Female MR#: [id number] Loc: RADIOLOGY REPORT Order #[id number] Bone Density Bone Density Hip/Spine (STD) Signed EXAM DESCRIPTION: Bone Density Hip/Spine (STD) REASON FOR STUDY: 78 y/o year old postmenopausal white female with given history of screening. 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 Has taken vitamin-D and calcium. Performs regular weight-bearing exercise. Regularly consumes dairy products. Does not drink caffeinated beverages. COMPARISON: None available. This will serve as a new baseline. Acquisition of a new DXA machine precludes comparison with older exams due to differences in scan type. FINDINGS: AP LUMBAR SPINE L1-L4: Total BMD is 1.040 g/cm2 T-score is -0.1 LEFT HIP: Total BMD is 0.711 g/cm2 T-score is -1.9 Femoral neck BMD is 0.667 g/cm2 T-score is -1.6 Fracture risk assessment (FRAX): 10 year risk for a major osteoporotic fracture is 14 % 10 year risk for a hip fracture is 3.3 % The FRAX tool has not been validated in patients currently or previously treated with pharmacotherapy for osteoporosis. In such patients, clinical judgement must be exercised in interpreting FRAX scores as the fracture risk may be overestimated. IMPRESSION: Low bone mass Bone mineral density: Normal (T-score above or = -1.0) Low bone mass (T-score between -1.0 and -2.5) replaces the previously used term osteopenia Osteoporosis (T-score = or below -2.5) Medical evaluation for secondary causes of low bone mineral density may be appropriate. FRAX is a World Health Organization validated fracture risk assessment tool that calculates a person's 10 year probability of a major osteoporosis related fracture and hip fracture. According to the National Osteoporosis Foundation guidelines, postmenopausal women and men age 50 or older with low bone mass and a 10 year probability of a major osteoporosis related fracture = or greater than 20% or a 10 year probability of a hip fracture = or greater than 3% should be considered for treatment. For further information, including treatment recommendations, please refer to the 2013 ISCD Official Positions (http://www.iscd.org) and the NOF's Clinician's Guide to Prevention and Treatment of Osteoporosis (http://www.nof.org/professionals/clinical-guidelines) THIS IS AN ELECTRONICALLY VERIFIED FINAL REPORT 10/15/2018 1:42 PM - Electronically signed by Regan Dsouza M.D. RB: JESSE Report ID: [id number] Reading Location: [place] [address] REPORT ELECTRONICALLY SIGNED IN OTHER VENDOR SYSTEM Resulting Agency Comment O Procedure Note Regan Dsouza MD - 10/15/2018 Patient Name: JUVE MIRANDASanjay Mcguire Dr: Chelly Belcher PA-C, D.O.B: 1940 Exam Date: 10/15/181316 Age: 78 Sex: Female MR#: [id number] Loc: RADIOLOGY REPORT Order #[id number] Bone Density Bone Density Hip/Spine (STD) Signed EXAM DESCRIPTION: Bone Density Hip/Spine (STD) REASON FOR STUDY: 78 y/o year old postmenopausal white female withgiven history of screening. 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 Has taken vitamin-D and calcium. Performs regular weight-bearing exercise. Regularly consumes dairy products. Does notdrink caffeinated beverages. COMPARISON: None available. This will serve as a new baseline. Acquisition of a new DXA machineprecludes comparison with older exams due to differences in scan type. FINDINGS: AP LUMBAR SPINE L1-L4: Total BMD is 1.040 g/cm2 T-score is -0.1 LEFT HIP: Total BMD is 0.711 g/cm2 T-score is -1.9 Femoral neck BMD is 0.667 g/cm2 T-score is -1.6 Fracture risk assessment (FRAX): 10 year risk for a major osteoporotic fracture is 14 % 10 year risk for a hip fracture is 3.3 % The FRAX tool has not been validated in patients currently or previously treated with pharmacotherapy for osteoporosis. In such patients,clinical judgement must be exercised in interpreting FRAX scores as the fracturerisk may be overestimated. IMPRESSION: Low bone mass Bone mineral density: Normal (T-score above or = -1.0) Low bone mass (T-score between -1.0 and -2.5) replaces thepreviously used term osteopenia Osteoporosis (T-score = or below -2.5) Medical evaluation for secondary causes of low bone mineral density maybe appropriate. FRAX is a World Health Organization validated fracture risk assessmenttool that calculates a person's 10 year probability of a major osteoporosisrelated fracture and hip fracture. According to the National OsteoporosisFoundation guidelines, postmenopausal women and men age 50 or older with low bonemass and a 10 year probability of a major osteoporosis related fracture = or greater than 20% or a 10 year probability of a hip fracture = or greaterthan 3% should be considered for treatment. For further information, including treatment recommendations, pleaserefer to the 2013 ISCD Official Positions (http://www.iscd.org) and the NOF's Clinician's Guide to Prevention and Treatment of Osteoporosis (http://www.nof.org/professionals/clinical-guidelines) THIS IS AN ELECTRONICALLY VERIFIED FINAL REPORT 10/15/2018 1:42 PM - Electronically signed by Regantita Dsouza M.D. RB: JESSE Report ID: [id number] Reading Location: [id number] REPORT ELECTRONICALLY SIGNED IN OTHER VENDOR SYSTEM Chelly JARVIS IMG DXA PROCEDURES Final R esult from Last 3 Months or Most Recently Relevant to Health Maintenance Insurance MEDICARE [facility], [facility] MEDICARE BLUE [employer] OOS MEDICARE BLUE [employer] OOS Care Teams Tool Or Die Drawing Checker Relationship Specialty Start Date End Date Chelly Belcher PA [address] [place] [address] PCP - General Internal Medicine 10/31/18
--- OUTSIDE RECORDS SUMMARY | 2024-10-27 16:40 | XMS_ITS | Continuity of Care Document ---
Author Organization [facility] Address [address] [place] [address] Phone Care Team Providers Care Refrigerator Room Clerk Name Role Phone Porfirio Cortes Unavailable Unavailable Procedures Procedure Date Office/outpatient Visit, Est Dilated Retinal Exam W Interpretation Oc Dilated Macular Or Fundus Exam Findings Communicat Macular Or Fundus Exam Performed 2009 Communication Performed Office/outpatient Visit, Est Dilated Retinal Exam W Interpretation Fe Dilated Macular Or Fundus Exam Findings Communicat Communication Performed Communication Not Performed Office/outpatient Visit, Est Dilated Retinal Exam W Interpretation Au Dilated Macular Or Fundus Exam Findings Communicat Macular Or Fundus Exam Performed 2008 Communication Performed No Script Office/outpatient Visit, Est No Script Dilated Retinal Exam W Interpretation Dilated Macular Or Fundus Exam Findings Communicat Macular Or Fundus Exam Performed 2008 Communication Performed Fundus Photography W/ Report Post-op Follow-up Visit Refraction Post-op Follow-up Visit Remove Cataract, Insert Lens Post-op Follow-up Visit Echo Exam Of Eye-Professional 8 Post-op Follow-up Visit Remove Cataract, Insert Lens Eye Exam, New Patient Dilated Retinal Exam W Interpretation Ap Echo Exam Of Eye Advance Directives Directive Yes / No Effective Date File Name No Information Encounters Encounter Description Practice Location Reason(s) For Visit Diagnoses Date Provider Providers Copied on Encounter Office/outpat ient Visit, [facility], [address] [place] [address] [address], [place], [place], [id number], [place] tel:[phone] SEC [facility] No Information 0 6-201 0 Sebastian Monroy. [address] , [address], [place], [place], [facility], [place]. tel:[phone] Office/outpat ient Visit, [facility] [address] [place] [address] [address], [place], [place], [address], [place] tel:[phone] SEC [facility] No Information 0 3-201 0 Sebastian Monroy. [address] [place], [place] [address]ate [address], [address], [place], [place], [facility], [place]. tel:[phone] Office/outpat ient Visit, [facility], [address] [place] [address] [address], [place], [place], [address], [place] tel:[phone] [facility] No Information 2200 9 Sebastian Monroy. [address] [place], [place] [address]ate [address], [address], [place], [facility], [place]. tel:[phone] Office/outpat ient Visit, [facility], [address] [place] [address] [address], [place], [place], [id number], [place] tel:[phone] [facility] No Information 2 5200 9 Sebastian Monroy. [facility] [address], [address], [place], [facility], [place]. tel:[phone] Referring Provider: Porfirio Arreola, Kristian Gonzalezate [address], [place], [address]. tel:[phone] [facility], [address] [place] [address] [address], [place], [place], [address], [place] tel:[phone] SEC [facility] No Information John-2 5-200 8 Sebastian Monroy. [facility] [address] , [address], [place], [facility], [place]. tel:[phone] [facility], [address] [place] [address] [address], [place], [place], [address], [place] tel:[phone] [facility] No Information John-1 1-200 8 Doijennifer Monroy. [facility] [address], [place], [facility], [place]. tel:[phone] [facility], [address] [place] [address] [address], [place], [place], [id number], [place] tel:[phone] [facility] No Information John-1 0-200 8 Doijennifer Edbecky. [facility] [address], [place], [facility], [place]. tel:[phone] [facility], [address] [place] [address] [address], [place], [place], [address], [place] tel:[phone] [facility] No Information November-2 1-200 8 Sebastian Monroy. [facility] [address], [place], [facility], [place]. tel:[phone] Referring Provider: Porfirio Arreola, [facility] [address], [place], [facility]. tel:[phone] [facility], [address] [place] [address] [address], [place], [place], [address], [place] tel:[phone] [facility] No Information May-0 2-200 8 Sebastian Monroy. [facility] [address], [place], [facility], [place]. tel:[phone] [facility], [address], [place], [place], [address], [place] tel:[phone] [facility]Former[facility], [facility] No Information May-0 1-200 8 Sebastian Monroy. [address] [place], [place] [address]ate Center , [address], [place], [facility], . tel:[phone] [facility], [address], [place], [place], [address], [place] tel:[phone] [facility] No Information 2 200 8 Sebastian Monroy. [address] [place] [address], [place], [facility], . tel:[phone] Referring Provider: Porfirio Arreola, [address] [place], [place] [address], [place], [facility]. tel:[phone] Family History Family Member Type Diagnosis Age At Onset No Information Payers Payer name Insurance type Covered democrat ID Authoriza tion(s) [id number] [facility] [id number] Social History Type Description Quantity Date Captured Comments Sex Female Smoking Status No Information Chief Complaint And Reason For Visit No Information Reason For Referral Reason For Referral No Information History Of Present Illness Encounter Date Complaint History Of Prese nt Illness No Information Functional Status Date Functional Assessmen t No Information Instructions Date Instruction Additional Infor mation No Information Assessments Type Assessment Date No Information Patient Care Teams Name Effective Dates (start - stop) Status Members No Information
--- OUTSIDE RECORDS SUMMARY | 2024-10-27 16:40 | XMS_ITS | Encounter Summary ---
Author Organization [facility] Healthcare Address [address] [place] [address] Care Team Providers Care Vp Sales Name Role Phone Chelly Belcher Primary Care Provider [phone] Encounter Details Date Type Department Care Team (Late st Contact Info) Description 09/24/2024 Results Follow-Up [facility] Family Medicine [address] [place] [address] Chelly Belcher PA [address] [place], [place] [id number] Social History Tobacco Use Types Packs/Day Years Used Date Smoking Tobacco: Never Smokeless Tobacco: Never Alcohol Use Standard Drinks/Week Comments Never 0 (1 standard drink = 0.6 oz pur e alcohol) AUDIT-C Answer Date Recorded Q1: How often do you have a drink containing alcohol? Never 11/18/2022 Q2: How many drinks containi ng alcohol do you have on a typical day when you are drinking? Patient does not drink Q3: How often do you have si x or more drinks on one occasion? Never 11/18/2022 PHQ-2 Answer Date Recorded PHQ-2 Total Score (If total score is 3 or more points, staff should administer the PHQ-9) 4 04/04/2024 Comments No Sex and Gender Information Value Date Recorded Sex Assigned at Not on file Legal Sex Female 8:24 AM CDT Gender Identity Not on file Sexual Orientation Not on file Occupation Industry Job Start Date Job End Date retired Not on file Not on file Not on file documented as of this encounter Plan of Treatment Not on file documented as of this encounter Visit Diagnoses Not on filedocumented in this encounter Care Teams Vp Sales Relationship Specialty Start Date End Date Chelly Belcher PA [address] [address] PCP - General Internal Medicine 10/31/18 documented as of this encounter
--- OUTSIDE RECORDS SUMMARY | 2024-10-27 16:40 | XMS_ITS | Clinical Summary ---
Author Organization [facility] Address [facility] [place] [address] Care Team Providers Care High Heel Builder Name Role Phone Chelly Belcher Primary Care Provider [phone] Allergies Active Allergy Reactions Criticality Noted Date Comments Codeine Unknown 03/22/2018 unknown Lovastatin Unknown 04/13/2017 Metronidazole Unknown 10/14/2012 unknown Penicillins Unknown 04/13/2017 unknown Family History Medical History Relation Comments Breast Cancer Sister Relation Status Comments Sister Social History Tobacco Use Types Packs/Day Years Used Date Smoking Tobacco: Never Smokeless Tobacco: Never Tobacco Cessation:Counseling Given: Not Answered Alcohol Use Standard Drinks/Week Comments Never 0 (1 standard drink = 0.6 oz pur e alcohol) Comments No Sex and Gender Information Value Date Recorded Sex Assigned at Not on file Legal Sex Female 6:31 PM CDT Gender Identity Not on file Sexual Orientation Not on file Last Filed Vital Signs Vital Sign Reading Time Taken Comments Blood Pressure 169/92 04/21/2024 2:57 PM CDT Pulse 93 04/21/2024 2:43 PM CDT Temperature 36.1 C (97 F) 04/21/2024 2:43 PM CDT Respiratory Rate 20 04/21/2024 2:43 PM CDT Oxygen Saturation 99% 04/21/2024 2:43 PM CDT Inhaled Oxygen Concentration - - Weight 66.2 kg (146 lb) 04/21/2024 2:43 PM CDT Height 157.5 cm (5' 2 ) 04/21/2024 2:43 PM CDT Body Mass Index 26.7 04/21/2024 2:43 PM CDT Plan of Treatment Health Maintenance Due Date Last Done Comments Annual Medicare Wellness Visit 01/27/2004 DTaP, Tdap and Td Vaccines (1 - Tdap) 06/03/2008 06/02/2008 Zoster Vaccines (2 of 3) 10/25/2012 08/30/2012 RSV Immunization or 60+ Years (1 - 1-dose 75+ series) 2014 COVID-19 Vaccine (3 - season) 2024 09/11/2020, 08/18/2020 Pneumococcal Vaccine: 50+ Years Completed 12/28/2019, 06/30/2018, 04/13/2017, Additional history exists Meningococcal B Vaccine Aged Out No l onger eligible based on patient's age to complete this topic Meningococcal Vaccine Aged Out No enrique suzette eligible based on patient's age to complete this topic RSV Immunizations Under 20 Months Aged Out No longer eligible based on patient's age to complete this topic Insurance MEDICARE [facility] Care Teams High Heel Builder Relationship Specialty Start Date End Date Chelly Belcher PA [address] [place] [address] PCP - General PHYSICIAN DUST COLLECTOR ATTENDANT 07/20/18
--- OUTSIDE RECORDS SUMMARY | 2024-10-27 16:40 | XMS_ITS | Referral Summary ---
Author Organization [facility] [address] [facility] Address [address] [place] [address] Care Team Providers Care Tc Operator Name Role Phone Chelly Belcher Primary Care Provider [phone] Encounters Date Type Department Care Team Description 10/05/2024 1:30 PM CDT Office Visit [facility] Family Medicine [address] [place] [address] Chelly Belcher PA Medicare annual wellness [...] disease (HCC); BMI 27.0-27.9,adult 09/24/2024 Results Follow-Up [facility] Family Medicine [address] [place] [address] Chelly Belcher PA 09/20/2024 10:45 AM CDT Office Visit [facility] Orthopedics and Sports Medicine [address] [place] [phone] Avelino Sky MD Rotator cuff tear arthropathy of right shoulder (Primary Dx); Chronic left shoulder pain 09/15/2024 Orders Only [facility] [address] [place] [address] Chelly Belcher PA Hypertension associated with diabetes (HCC) (Primary Dx); 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); 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); Vitamin D deficiency; Other fatigue; Stage 3a chronic kidney disease (HCC) 08/15/2024 Telephone [facility] [address] [place] [address] Chelly Belcher PA from Last 3 Months Allergies Active Allergy Reactions Criticality Noted Date Comments Codeine Unknown 03/22/2018 unknown Codeine Phosphate Unknown 10/18/2018 Lovastatin Unknown 04/13/2017 Metronidazole Unknown 03/22/2018 unknown Penicillin V Unknown 03/22/2018 unknown Medications Ultra Thin Lancets 30 gauge [facility] USE TO TEST ONCE DAILY DIRECTED 100 each 3 04/16/20 20 Active blood glucose diagnostic (True Metrix Glucose Test Strip) stripIndications: Type 2 diabetes mellitus with hyperglycemia, without long-term current use of insulin ([facility]) TEST ONCE DAILY DIRECTED 100 each 3 [...] THREE TIMES A DAY 90 capsule 11 12/30/20 24 Active levothyroxine (SYNTHROID) 75 mcg tabletIndications :Acquired hypothyroidism TAKE 1 TABLET EARLY IN THE MORNING BEFORE BREAKFAST 90 tablet 3 10/04/19 25 Active mirtazapine (REMERON) 15 mg tablet Take 1 tablet (15 mg total) by mouth nightly 90 tablet 2 10/06/19 25 Active levothyroxine (SYNTHROID) 75 mcg tabletIndications :Acquired hypothyroidism Take 1 tablet (75 mcg total) by mouth trust and estates paralegal before breakfast 05/06/20 24 025 Discontinued mirtazapine [...] follow-up already scheduled with neurosurgeon Dr. [facility] this week. She is actually getting good [...] 06/11/2023 Assessment & Plan (06/11/2023 11:21 PM C PROGRAMMER): Flu vaccine updated in the office today [...] eat. Assessment & Plan (06/11/2023 11:19 PM C PROGRAMMER): Patient with Alzheimer's. She unable to tolerate [...] dementia Assessment & Plan (05/21/2022 1:40 PM C PROGRAMMER): This is a significant, separately identifiable problem [...] (11/07/2021): Added automatically from request for surgery [id number] Gastric ulcer 11/07/2021 Overview (11/07/2021): Added automatically from request for surgery [id number] Mouth sores 06/16/2021 Assessment & Plan (06/16/2021 10:07 PM C PROGRAMMER): Mouth sores of unknown etiology but they [...] GI Assessment & Plan (05/21/2022 1:38 PM C PROGRAMMER): Patient's states the seem to be a little bit better. Continue per GI. Assessment & Plan (12/02/2021 11:10 PM CDT): Continue perDr. Abisaizabarhi Assessment & Plan (05/11/2021 8:22 PM CDT): See dyspepsia and bad taste in mouth. Other fatigue 11/18/2020 Assessment & Plan (06/11/2023 11:21 PM C PROGRAMMER): Probably multifactorial. Check labs and followup to [...] office. Assessment & Plan (06/10/2020 2:16 PM C PROGRAMMER): Check xray due to fall in the bathroom. Pt is poor historian. Flu vaccine need 06/10/2020 Assessment & Plan (05/11/2021 8:22 PM CDT): Vaccine updated in office today Assessment & Plan (06/10/2020 2:30 PM C PROGRAMMER): Updated in the office Nonrheumatic aortic valve stenosis 06/10/2020 Overview (06/10/2020): December 2019 ECHO Assessment & Plan (11/18/2022 9:53 PM CDT): Continue per cardio. Murmur sounds the same today Assessment & Plan (06/10/2020 2:28 PM C PROGRAMMER): Will refer to cardio for further evaluation [...] make a big difference. Will refer to [facility] GI for further evaluation and recommendations. She prefers to be seen in the [facility] location but her whole road. Assessment & Plan (06/10/2020 2:29 PM C PROGRAMMER): Continue per Dr. Hood. May restart PPI [...] make a big difference. Will refer to [facility] GI for further evaluation and recommendations. She [...] labs. Assessment & Plan (06/11/2023 11:19 PM C PROGRAMMER): Avoid nephrotoxic drugs including NSAIDs. Monitor labs. Assessment & Plan (11/18/2022 9:53 PM CDT): Avoid nephrotoxic drugs including NSAIDs. Monitor labs. Assessment & Plan (05/21/2022 1:37 PM C PROGRAMMER): Avoid nephrotoxic drugs including NSAIDs. Monitor labs. [...] ramipril Assessment & Plan (06/11/2023 11:21 PM C PROGRAMMER): Bp is stable/in acceptable range for any co-morbidities. Encouraged to limit sodium intake and exercise for weight control. Continue bisoprolol hydrochlorothiazide and ramipril Assessment & Plan (11/18/2022 9:50 PM CDT): Bp is stable/in acceptable range for any co-morbidities. Encouraged to limit sodium intake and exercise for weight control. Continue bisoprolol hydrochlorothiazide and ramipril Assessment & Plan (05/21/2022 1:36 PM C PROGRAMMER): Bp is stable/in acceptable range for any co-morbidities. Encouraged to limit sodium intake and exercise for weight control. Continue bisoprolol hydrochlorothiazide and ramipril Assessment & Plan (12/02/2021 11:08 PM CDT): Bp is stable/in acceptable range for any co-morbidities. Encouraged to limit sodium intake and exercise for weight control. Continue bisoprolol hydrochlorothiazide ramipril and amlodipine Assessment & Plan (06/16/2021 10:07 PM C PROGRAMMER): Bp is stable/in acceptable range for any [...] ramipril Assessment & Plan (06/10/2020 2:31 PM C PROGRAMMER): Stressed importance of continued A1c control to minimize the alf effects of diabetes. Bring accuchecks to office [...] of continued A1c control to minimize the manager terminal effects of diabetes. Bring accuchecks to office [...] controlled. Assessment & Plan (06/11/2023 11:20 PM C PROGRAMMER): Stressed importance of continued A1c control to minimize the alf effects of diabetes. Bring accuchecks to office [...] the only 1 she can tolerate. Discussed Shauna drugs Assessment & Plan (05/21/2022 1:36 PM C PROGRAMMER): Encouraged patient to follow low fat/low chol [...] statin Assessment & Plan (06/10/2020 2:31 PM C PROGRAMMER): Encouraged patient to follow fat/low chol diet [...] of continued A1c control to minimize the alf effects of diabetes. Bring accuchecks to office [...] of continued A1c control to minimize the manager terminal effects of diabetes. Bring accuchecks to office [...] medication. Assessment & Plan (06/11/2023 11:20 PM C PROGRAMMER): Stressed importance of continued A1c control to minimize the manager terminal effects of diabetes. Bring accuchecks to office [...] pressure Assessment & Plan (05/21/2022 1:36 PM C PROGRAMMER): Bp is stable/in acceptable range for any [...] of continued A1c control to minimize the alf effects of diabetes. Bring accuchecks to office [...] of continued A1c control to minimize the manager terminal effects of diabetes. Bring accuchecks to office [...] follow with the GI down at [facility] and [facility]. Currently managed without additional medications as the Reglan did not really help. Assessment & Plan (11/18/2022 9:51 PM CDT): GI symptoms have improved. Continue per GI. Assessment & Plan (05/21/2022 1:41 PM C PROGRAMMER): No change. Continue per GI. Continue to [...] biopsies - All Benign 2016 - Right 2009 - Left 2007 - Right Sciatica of [...] of continued A1c control to minimize the alf effects of diabetes. Bring accuchecks to office [...] maintain. Assessment & Plan (05/25/2023 11:33 AM C PROGRAMMER): Weight/BMI is in healthy range. Continue healthy lifestyle to maintain. BMI 25.0-25.9,adult 11/18/2022 05/25/20 23 Assessment & Plan (11/18/2022 11:01 AM CDT): Weight/BMI is in healthy range. Continue healthy lifestyle to maintain. Need for vaccination 05/21/2022 023 Assessment & Plan (05/21/2022 1:38 PM C PROGRAMMER): Flu vaccine updated in the office today Burning with urination 01/30/202205/21 Assessment & Plan (01/30/2022 4:18 PM CDT): Pt presents with dysuria. Urine dip completed. Send urine culture. Antibiotic to pharmacy. Reviewed bladder care. BMI 26.0-26.9,adult 11/18/2021 11/19/19 23 Assessment & Plan (05/21/2022 1:38 PM C PROGRAMMER): Weight/BMI is in healthy range. Continue healthy lifestyle to maintain. Assessment & Plan (11/18/2021 3:19 PM CDT): Weight/BMI is in healthy range. Continue healthy lifestyle to maintain. Obesity (BMI 30-39.9) 05/27/20212021 Assessment & Plan (05/27/2021 10:48 AM C PROGRAMMER): Obesity is unchanged. Discussed the patient's BMI. The BMI is above average. BMI management plan is completed. BMI Follow-up includes: nutrition counseling, exercise counseling and education provided. BMI 32.0-32.9,adult 05/27/2021 11/19/19 22 Assessment & Plan (05/27/2021 10:48 AM C PROGRAMMER): Obesity is unchanged. Discussed the patient's BMI. [...] 04/17/2024 Assessment & Plan (06/11/2023 11:20 PM C PROGRAMMER): Encouraged healthy lifestyle, good nutrition and exercise. Encouraged Calcium and Vitamin D and weight bearing exercise for bone health. Reviewed immunizations. Reviewed age appropirate screenings. Medicare Wellness Documentation is completed within the chart Assessment & Plan (05/21/2022 1:38 PM C PROGRAMMER): Encouraged healthy lifestyle, good nutrition and exercise. [...] 12/28/201904/12 Assessment & Plan (06/11/2023 11:21 PM C PROGRAMMER): Continue levothyroxine. Monitor labs. Assessment & Plan (11/18/2022 9:53 PM CDT): Continue levothyroxine. Monitor labs. Assessment & Plan (05/21/2022 1:37 PM C PROGRAMMER): Continue levothyroxine 75 mcg. Continue to monitor labs. Assessment & Plan (12/02/2021 11:10 PM CDT): Continue levothyroxine. Monitor labs. Assessment & Plan (11/18/2020 6:55 PM CDT): Continue levothyroxine. Monitor labs. Assessment & Plan (06/10/2020 2:29 PM C PROGRAMMER): Continue levothyroxine Assessment & Plan (01/08/2020 2:38 [...] 21 Assessment & Plan (06/10/2020 2:14 PM C PROGRAMMER): Obesity is unchanged. Discussed the patient's BMI. [...] 04/17/2024 Assessment & Plan (06/11/2023 11:20 PM C PROGRAMMER): Stressed importance of continued A1c control to minimize the manager terminal effects of diabetes. Bring accuchecks to office [...] of continued A1c control to minimize the alf effects of diabetes. Bring accuchecks to office [...] monitor Assessment & Plan (05/21/2022 1:42 PM C PROGRAMMER): This is a significant, separately identifiable problem that was evaluated and managed on the same day as the wellness exam Stressed importance of continued A1c control to minimize the manager terminal effects of diabetes. Bring accuchecks to office [...] of continued A1c control to minimize the alf effects of diabetes. Bring accuchecks to office [...] of continued A1c control to minimize the alf effects of diabetes. Bring accuchecks to office when instructed to do so. Check A1c about every 3-6 months. Take medication as prescribed. Get annual eye exam. Encouraged PRETTY/Statin if able to tolerate. Encouraged weight control and encouraged diabetic diet and exercise. Continue metformin Assessment & Plan (01/08/2020 2:36 PM CDT): Stressed importance of continued A1c control to minimize the manager terminal effects of diabetes. Bring accuchecks to office [...] of continued A1c control to minimize the alf effects of diabetes. Bring accuchecks to office [...] progression. Assessment & Plan (06/10/2020 2:26 PM C PROGRAMMER): Sxs are progressing. She did not tolerate [...] 10/16/2024 Memory deficit 08/11/2017 10/16/2024 Hyperlipidemia 05/11/2021 Immunizations Immunization Administration Dates Next Due Influenza, Quadrivalent, Hig h Dose, Preservative Free, Intrr 05/25/2023,05/21/2022,05/08/2021,05/02 Influenza, Quadrivalent, Spl it, Preservative Free, Intramuscular 04/13/2017 Influenza, Trivalent, High D ose, Split, Preservative Free, Intramuscular 04/20/2024,04/20/2019,05/04/2018,04/24,04/18/2015 Influenza, Trivalent, IM (MDV) 04/05/2014,2012,05/04/2012 Pneumococcal Conjugate PCV 13 06/30/2018, 017 Pneumococcal Polysaccharide PPV23 12/28/2019 ZOSTER LIVE 08/30/2012 Social History Tobacco Use Types Packs/Day Years [...] file Not on file Not on file Last Filed Vital Signs Vital Sign Reading Time Taken Comments Blood Pressure 126/82 10/05/2024 1:09 PM CDT Pulse 51 10/05/2024 1:09 PM CDT Temperature 36.6 C (97.9 F) 10/05/2024 1:09 PM CDT Respiratory Rate 16 05/21/2022 11:15 AM C PROGRAMMER Oxygen Saturation 95% 10/05/2024 1:09 PM CDT Inhaled Oxygen Concentration - - Weight 69.2 kg (152 lb 8 oz) 06/27/2024 11:43 AM C PROGRAMMER Height 157.5 cm (5' 2 ) 10/05/2024 1:09 PM CDT Body Mass Index 27.89 06/27/2024 11:43 AM C PROGRAMMER Plan of Treatment Not on file Procedures Procedure Name Priority Date/Time Associated Diagnosis [...] (HCC) Stage 3a chronic kidney disease (HCC) VT ARTHROCENTESIS ASPIR&/INJ MAJOR JT/BURSA W/O US Routine [...] LAB URINE ORDERABLES Final Result [facility] [address] [address] * Vitamin D 25 hydroxy (09/23/2024 9:10 AM CDT) Pathologist [facility] Vitamin D 25-OH 34 30 - 100 ng/mL [facility] Comment: Vitamin D Status 25-OH Vitamin D: Deficiency: <20 ng/mL Insufficiency: 20 - 29 ng/mL Optimal: > or = 30 ng/mL For 25-OH Vitamin D testing on patients on D2-supplementation and patients for whom quantitation of D2 and D3 fractions is required, the QuestAssureD(TM) 25-OH VIT D, (D2,D3), LC/MS/MS is recommended: order code 28694 (patients >2yrs). See Note 1 Note 1 For additional information, please refer to http://education.Giveo/faq/XJW037 (This link is being provided for informational/ educational purposes only.) Blood 09/23/2024 9:10 AM CDT 09/23/2024 9:10 AM CDT Narrative [facility] - 09/24/2024 7:34 AM CDT FASTING:YES FASTING: YES us Chelly JARVIS LAB BLOOD ORDERABLES Final Result [facility] [address] [place] [address] * (ABNORMAL) CBC with auto differential (09/23/2024 9:06 AM CDT) [facility] WBC 9.7 3.8 - 10.8 Thousand/u L [facility] RBC, POC 3.60(L) 3.80 - 5.10 Million/uL [facility] Hgb 10.9(L) 11.7 - 15.5 g/dL [facility] Hct 34.5(L) 35.0 - 45.0 % [facility] [...] 09/24/2024 1:56 AM CDT FASTING:YES FASTING: YES us Chelly JARVIS LAB BLOOD ORDERABLES Final Result Performing Organization Address City/State/[facility] Co de Phone Number [facility] [address] [place] [address] * TSH (09/23/2024 9:06 AM CDT) Pathologist [facility] TSH 0.53 0.40 - 4.50 mIU/L [facility] Blood 09/23/2024 9:06 AM CDT 09/23/2024 9:07 AM CDT Narrative [facility] - 09/24/2024 1:56 AM CDT FASTING:YES FASTING: YES us Chelly JARVIS LAB BLOOD ORDERABLES Final Result Performing Organization Address [facility] Co de Phone Number [facility] [address] [place] [address] * (ABNORMAL) Hemoglobin A1c (09/23/2024 9:06 AM CDT) Hgb A1C 9.3(H) <5.7 % of total Hgb [facility] Comment: For someone without known diabetes, [...] BLOOD ORDERABLES Final Result Performing Organization Address [facility] Co de Phone Number [facility] [address] [place] [address] * (ABNORMAL) Lipid panel (09/23/2024 9:06 AM CDT) Cholesterol 190 <200 mg/dL [facility] HDL 61 > OR = 50 mg/dL [facility] Triglycerides 192(H) <150 mg/dL [facility] LDL 100(H) mg/dL (calc) [facility] Comment: Reference range: <100 Desirable range <100 mg/dL for primary prevention; <70 mg/dL for patients with CHD or diabetic patients with > or = 2 CHD risk factors. LDL-C is now calculated using the Sha calculation, which is a validated novel method providing better accuracy than the Friedewald equation in the estimation of LDL-C. Jorge HOOD et al. IESHA. 2013;310(19): 2065-6184 (http://education.Giveo/faq/YHT326) Chol/HDL ratio 3.1 <5.0 (calc) [facility] Non-HDL, (LDL+VLDL) 129 <130 mg/dL (calc) [facility] Comment: For patients with diabetes plus 1 major ASCVD risk factor, treating to a non-HDL-C goal of <100 mg/dL (LDL-C of <70 mg/dL) is considered a therapeutic option. Blood 09/23/2024 9:06 AM CDT 09/23/2024 9:07 AM CDT Narrative [facility] - 09/24/2024 1:56 AM CDT FASTING:YES FASTING: YES Chelly JARVIS LAB BLOOD ORDERABLES Final Result [facility] [address] [place] [address] * (ABNORMAL) Comprehensive metabolic panel (09/23/2024 9:06 AM CDT) Glucose 332(H) 65 - 99 mg/dL [facility] Comment: Fasting reference interval For someone without known diabetes, a glucose value >125 mg/dL indicates that they may have diabetes and this should be confirmed with a follow-up test. BUN 34(H) 7 - 25 mg/dL [facility] Creatinine 1.18(H) 0.60 - 0.95 mg/dL [facility] bert An eGFR 45(L) > OR = 60 mL/min/1.7 3m2 [facility] b[facility] BUN/creat ratio 29(H) 6 - 22 (calc) [facility] Sodium 138 135 - 146 mmol/L [facility] Potassium, pl 4.0 3.5 - 5.3 mmol/L [facility] Chloride 97(L) 98 - 110 mmol/L [facility] bert An CO2 33(H) 20 - 32 mmol/L [facility] b[facility] An Calcium 9.5 8.6 - 10.4 mg/dL [facility] Protein, sr 7.0 6.1 - 8.1 g/dL [facility] Albumin 4.0 3.6 - 5.1 g/dL [facility] GLOBULIN 3.0 1.9 - 3.7 g/dL (calc) [facility] Alb/glob ratio 1.3 1.0 - 2.5 (calc) [facility] Bilirubin, total 0.6 0.2 - 1.2 mg/dL [facility] Alk phos 119 37 - 153 U/L [facility] AST 20 10 - 35 U/L [facility] ALT (SGPT) 19 6 - 29 U/L [facility] Blood 09/23/2024 9:06 AM CDT 09/23/2024 9:07 AM CDT Narrative [facility] - 09/24/2024 1:56 AM CDT FASTING:YES FASTING: YES Chelly JARVIS LAB BLOOD ORDERABLES Final Result [facility] [address] [place] [address] * [place] ARTHROCENTESIS ASPIR&/INJ MAJOR JT/BURSA W/O US (09/20/2024 10:45 AM CDT) Avelino Stanley MD - 09/20/2024 10:45 AM CDT Avelino [...] Chelly Belcher PA-C, D.O.B: 1940 Exam Date: 10/15/18 1317 Age: 78 Sex: Female MR#: [id number] Loc: RADIOLOGY REPORT Order #[id number] Bone Density Bone Density Hip/Spine (STD) Signed EXAM DESCRIPTION: Bone Density Hip/Spine (STD) REASON FOR STUDY: 78 y/o year old postmenopausal white female with given history of screening. Assistant Executive Housekeeper/Model: Myagi A (S/N [id number]) CLINICAL INFORMATION: Current height: 61 inches Maximum [...] Regan Dsouza M.D. RB: JESSE Report ID: [id number] Reading Location: [id number] REPORT ELECTRONICALLY SIGNED IN OTHER VENDOR SYSTEM Resulting Agency Comment O Procedure Note Regan Dsouza MD - 10/15/2018 Patient Name: DANIKA MIRANDA Dr: Chelly Belcher PA-C, D.O.B: 1940 Exam Date: 10/15/18 1317 Age: 78 Sex: Female MR#: [id number] Loc: RADIOLOGY REPORT Order #[id number] Bone Density Bone Density Hip/Spine (STD) Signed EXAM DESCRIPTION: Bone Density Hip/Spine (STD) REASON FOR STUDY: 78 y/o year old postmenopausal white female withgiven history of screening. Assistant Executive Housekeeper/Model: Myagi A (S/N [id number]) CLINICAL INFORMATION: Current height: 61 inches Maximum [...] Regan Dsouza M.D. RB: JESSE Report ID: [id number] Reading Location: [id number] REPORT ELECTRONICALLY SIGNED IN OTHER VENDOR SYSTEM Chelly JARVIS IMG DXA PROCEDURES Final R esult from Last 3 Months or Most Recently Relevant to Health Maintenance Insurance MEDICARE [facility] MEDICARE BLUE TRADITIONAL OOS MEDICARE BLUE TRADITIONAL OOS Care Teams Tc Operator Relationship Specialty Start Date End Date Chelly Belcher PA [address] [facility] [address] [place] [address] PCP - General Internal Medicine 10/31/18
[2024-10-27 16:46] VITALS: BP 127/59; PULSE 78; RESP 17; TEMP 36.9; O2SAT 96
--- NOTE | 2024-10-27 16:51 | ECG_ITS ---
Test Date: 2024-10-27 17:21:16 Measurements Intervals [place] Rate: 74 P: 43 TX: 186 QRS: -24 QRSD: 99 T: 55 QT: 404 QTc: 450 Interpretive Statements SINUS RHYTHM DELAYED PRECORDIAL R/S TRANSITION LEFT VENTRICULAR HYPERTROPHY AND ST-T CHANGE BORDERLINE ST-T WAVE ABNORMALITY- ANTEROLATERAL LEADS BASELINE ARTIFACT- I, II, III, AVR, AVL, AVF, V1-V6 BORDERLINE ECG No previous ECG available for comparison Electronically Signed On 10-27-2024 20:08:16 CDT by Won Gaitan D.O.
--- NOTE | 2024-10-27 16:53 | ED.RECABL ---
HPI - Recheck/Abnormal Lab/Rx General Chief Complaint: Recheck/Abnormal Lab/Rx <Sindy Triana PA-C - Last Filed: 10/27/24 16:55> Stated Complaint: high BS high at home <Sindy Triana PA-C - Last Filed: 10/27/24 16:55> Time Seen by Provider: 10/27/24 17:49 <Sindy Triana PA-C - Last Filed: 10/27/24 16:55> Focused HPI: 84-year-old female with history of dementia, hypertension, hypothyroidism, type 2 diabetes presents to emergency department with at bedside for hyperglycemia. Patient's episode provides the following history. States the patient has become increasingly more confused over the past several weeks. About 2 and half to 3 weeks ago she stopped walking and has been wheelchair-bound since. He noticed yesterday that she was urinating more frequent than normal so he checked her blood glucose and it was greater than 600 which is what prompted them to come to the ED. He notes the patient was previously on metformin but this was discontinued about a year ago by the patient's PCP due to GI adverse effects. The patient was not reportedly started on another diabetes medication. Patient is A&O x1 currently. Patient's states that her mental status fluctuates with her dementia. GENERAL: Chronically ill-appearing, slumped over in wheelchair HEAD: Normocephalic, atraumatic. CHEST: Clear to auscultation. ?No respiratory distress. HEART: Regular rate and rhythm.? NEURO: ?Alert and oriented x1. Moving all extremities spontaneously Patient screened in triage and initial orders placed.? ?Additional care and disposition to be based upon?diagnostic testing and treatment. <Sindy Triana PA-C - Last Filed: 10/27/24 16:55> Focused HPI: 84-year-old female with history of dementia, hypertension, hypothyroidism, type 2 diabetes presents to emergency department with at bedside for hyperglycemia. Patient's episode provides the following history. States the patient has become increasingly more confused over the past several weeks. About 2 and half to 3 weeks ago she stopped walking and has been wheelchair-bound since. He noticed yesterday that she was urinating more frequent than normal so he checked her blood glucose and it was greater than 600 which is what prompted them to come to the ED. He notes the patient was previously on metformin but this was discontinued about a year ago by the patient's PCP due to GI adverse effects. The patient was not reportedly started on another diabetes medication. Patient is A&O x1 currently. Patient's states that her mental status fluctuates with her dementia. GENERAL: Chronically ill-appearing, slumped over in wheelchair HEAD: Normocephalic, atraumatic. CHEST: Clear to auscultation. ?No respiratory distress. HEART: Regular rate and rhythm.? NEURO: ?Alert and oriented x1. Moving all extremities spontaneously Patient screened in triage and initial orders placed.? ?Additional care and disposition to be based upon?diagnostic testing and treatment. <KAREN Berman Last Filed: 10/28/24 00:40> Source: patient and family <KAREN Berman Last Filed: 10/28/24 00:40> Mode of arrival: ambulatory <KAREN Berman Last Filed: 10/28/24 00:40> Limitations: dementia <KAREN Berman Last Filed: 10/28/24 00:40> History of Present Illness HPI narrative: Agree with above HPI. Patient's reports he last checked her blood sugar around 1 month ago and it was not quite so elevated. He does report recent weight gain. He states he has a hard time getting patient to eat and drink. <KAREN Berman Last Filed: 10/28/24 00:40> Related Data Home Medications: Home Medications ?Medication ?Instructions ?Recorded ?Confirmed ?Last Taken ?Type bisoprolol 5 1 tablet PO QAM 01/12/20 11/26/23 11/25/23 History mg-hydrochlorothiazide 6.25 mg tablet levothyroxine 75 mcg tablet 75 mcg PO QAM 01/12/20 11/26/23 11/25/23 History (Synthroid) multivitamin (Multiple Vitamins 1 tablet PO DAILY 01/12/20 11/26/23 11/25/23 History tablet) amlodipine 2.5 mg tablet 2.5 mg PO DAILY 11/26/23 11/26/2324 History mirtazapine 7.5 mg tablet 7.5 mg PO DAILY 11/26/23 11/26/23 11/25/23 History pitavastatin magnesium 2 mg tablet 2 mg PO DAILY 11/26/23 11/26/23 11/25/23 History (Zypitamag) <Sindy Triana PA-C - Last Filed: 10/27/24 16:55> Allergies/Adverse Reactions: Allergies Allergy/AdvReac Type Severity Reaction Status Date / Time metronidazole Allergy Severe Unknown Verified 09/29/24 13:27 codeine Allergy Intermediate HYPERACTIVI Verified 09/29/24 13:27 TY <Sindy Triana PA-C - Last Filed: 10/27/24 16:55> Review of Systems Review of Systems: All systems reviewed & are unremarkable except as noted in HPI. <Amanda Hilario PA-C - Last Filed: 10/28/24 00:40> All systems reviewed & are unremarkable except as noted in HPI and below <Amanda Hilario PA-C - Last Filed: 10/28/24 00:40> [facility] [place] Past Medical History Medical History: Medical History Central cord syndrome Arthritis Ulcer Gastric ulcer GERD (gastroesophageal reflux disease) Diabetes Hypertension Hyperlipidemia Dementia <Sindy Triana PA-C - Last Filed: 10/27/24 16:55> Surgical History Surgical History: Surgical History History of knee replacement <Sindy Triana PA-C - Last Filed: 10/27/24 16:55> Social History Social History: Social History Smoking status: Never smoker Alcohol intake: never Substance use: never Substance use type: does not use Do You Feel Safe in your Home?: Yes Lack of Transportation: No Lack of Food: Never True Current Housing: I Have Housing Concerned About Future Housing: No Difficulty Paying Gas/Electric Bills: No Difficulty Paying for Meds: No Currently Unemployed: No Education: High School Diploma/GED Difficulty w/ Childcare or Family Care: No Living arrangements: with family Additional living arrangements comments: - /- Occupation/Education: retired Spiritual care concerns: No <Sindy Triana PA-C - Last Filed: 10/27/24 16:55> Exam Narrative: GENERAL: Elderly, non-toxic, in no acute distress. HEAD: Normocephalic, atraumatic. RESPIRATORY: Airway patent, respirations nonlabored. Clear to auscultation bilaterally, no rales, rhonchi, wheezing. CARDIOVASCULAR: Regular rate and rhythm, +murmur ABDOMINAL: Soft, mild diffuse tenderness, no appreciable focal tenderness, nondistended. Normoactive BS. MUSCULOSKELETAL: Moves all extremities. No gross deformities. SKIN: Warm, dry, normal color. NEURO: A&O X1. Speech clear, but patient unable to accurately participate in conversation. Cranial nerves II-XII grossly intact. Steady gait. No ataxic movements. Moves all extremities. No focal deficits. PSYCHIATRIC: Appropriate mood and affect. Normal interaction. <Amanda Hilario PA-C - Last Filed: 10/28/24 00:40> Course GLASS CALIBRATOR/PA Physician Supervision For this patient encounter, I reviewed the GLASS CALIBRATOR or PA documentation, treatment plan, and medical decision making and had [id number] time with this patient. I performed all aspects of the MDM as documented. <Patito Warren MD - Last Filed: 10/28/24 01:00> Vital Signs Vital signs: Vital Signs Temperature 98.4 F 10/27/24 16:46 Pulse Rate 78 10/27/24 16:46 Respiratory Rate 17 10/27/24 16:46 Blood Pressure 127/59 L 10/27/24 16:46 Pulse Oximetry 96 10/27/24 16:46 Oxygen Delivery Room Air 10/27/24 16:46 Temperature 98.4 F 10/27/24 16:46 Pulse Rate 69 10/27/24 23:22 Respiratory Rate 14 10/27/24 23:22 Blood Pressure 138/98 H 10/27/24 23:22 Pulse Oximetry 98 10/27/24 23:22 Oxygen Delivery Nasal Cannula 10/27/24 20:25 Oxygen Flow Rate 1 10/27/24 20:25 <Sindy Triana PA-C - Last Filed: 10/27/24 16:55> Vital Signs Temperature 98.4 F 10/27/24 16:46 Pulse Rate 78 10/27/24 16:46 Respiratory Rate 17 10/27/24 16:46 Blood Pressure 127/59 L 10/27/24 16:46 Pulse Oximetry 96 10/27/24 16:46 Oxygen Delivery Room Air 10/27/24 16:46 Temperature 98.4 F 10/27/24 16:46 Pulse Rate 69 10/27/24 23:22 Respiratory Rate 14 10/27/24 23:22 Blood Pressure 138/98 H 10/27/24 23:22 Pulse Oximetry 98 10/27/24 23:22 Oxygen Delivery Nasal Cannula 10/27/24 20:25 Oxygen Flow Rate 1 10/27/24 20:25 <Amanda Hilario PA-C - Last Filed: 10/28/24 00:40> Vital Signs Temperature 98.4 F 10/27/24 16:46 Pulse Rate 78 10/27/24 16:46 Respiratory Rate 17 10/27/24 16:46 Blood Pressure 127/59 L 10/27/24 16:46 Pulse Oximetry 96 10/27/24 16:46 Oxygen Delivery Room Air 10/27/24 16:46 Temperature 98.4 F 10/27/24 16:46 Pulse Rate 69 10/27/24 23:22 Respiratory Rate 14 10/27/24 23:22 Blood Pressure 138/98 H 10/27/24 23:22 Pulse Oximetry 98 10/27/24 23:22 Oxygen Delivery Nasal Cannula 10/27/24 20:25 Oxygen Flow Rate 1 10/27/24 20:25 <Patito Warren MD - Last Filed: 10/28/24 01:00> MDM - Recheck/Abnormal Lab/Rx MDM Narrative Medical decision making narrative: Patient presented to ED from home with her with report of hyperglycemia. Patient has history of dementia. provides all information. Reports patient has had increased weakness over the past 3 weeks. Has not been on diabetic medication for the past 1 year. Had previously been on metformin. Does not routinely check her blood sugars. Initial bedside glucose greater than 500 here. Patient in no acute distress. Vitals are otherwise stable. CBC with white blood cell count of 11.8. CMP with a blood sugar of 738. Fluids are ongoing. Bicarb within normal range. Anion gap of 12. Sodium 134, chloride 92, BUN 56, creatinine 1.37. Baseline around 1.2. Lactic acid 2.4. Beta hydroxybutyrate 1.25. 1+ ketones on urine. 11-[address]BC[address] Sent for culture. CT brain is negative. Chest x-ray is clear. Patient is insulin naive. Given a L and half of fluids, 5 unit IV insulin. Repeat blood sugar still > 500. Insulin re-dosed at 7.5 U. Will continue fluids cautiously. Echocardiogram from 2020 did show normal LVEF 55-60%, grade 1 diastolic dysfunction. There is no evidence of fluid overload at this time. No peripheral edema. Checks x-ray without evidence of pulmonary edema. Discussed case with Dr. Ruiz, hospitalist, advised to give additional bolus @ 500cc/hour, repeat bmp to see actual BG to determine which floor for admission. Repeat BMP showing BG 581. 500 per hour cc bolus still ongoing. Discussed case again with Dr. Ruiz, recommended additional 10U dose of IV insulin, discuss with cardiology coordinator for possible insulin gtt. Discussed case with Dr. Craft, cardiology coordinator, recommended to start insulin gtt, avoid 10U dose for now to avoid dropping blood sugar too fast, admit to ICU. Dr. Ruiz made aware. Family in agreement with patient being admitted. <Amanda Hilario PA-C - Last Filed: 10/28/24 00:40> Medical Records Attestation: I reviewed the patient's medical records. <Amanda Hilario PA-C - Last Filed: 10/28/24 00:40> Lab Data Attestation: I reviewed the patient's lab results. <Amanda Hilario PA-C - Last Filed: 10/28/24 00:40> Result diagrams: 10/27/24 17:28 10/27/24 23:27 <Sindy Triana PA-C - Last Filed: 10/27/24 16:55> Labs: Lab Results 10/27/24 10/27/24 10/27/24 Range/Units 16:47 17:28 17:45 WBC 11.8 H (4.5-10.0) K/mm3 RBC 4.37 (4.2-5.4) M/mm3 Hgb 13.3 (12.0-15.0) g/dL Hct 41.3 (37.0-47.0) % MCV 94.5 (80-100) fl MCH 30.4 (26-34) pg MCHC 32.2 (32-36) g/dl RDW 13.3 (11.5-14.5) % Plt Count 277 (150-375) k/mm3 MPV 11.1 H (7.4-10.4) fl Immature Gran % (Auto) 0.5 (0-0.5) % Neut % (Auto) 76.1 H (45.5-73.1) % Lymph % (Auto) 15.5 L (18.3-44.2) % Orange % (Auto) 7.2 (2.6-8.5) % Eos % (Auto) 0.4 (0-4.4) % Baso % (Auto) 0.3 (0.2-1.2) % Lymph # (Auto) 1.84 (0.9-3.2) K/mm3 Orange # (Auto) 0.9 H (0.1-0.6) K/mm3 Eos # (Auto) 0.1 (0-0.3) K/mm3 Baso # (Auto) 0.0 (0.0-0.1) K/mm3 Abs Immat Gran (auto) 0.06 H (0.00-0.031) K/mm3 Absolute Neuts (auto) 9.0 H (1.3-6.7) K/mm3 Absolute Nucleated RBC 0.000 (0.0-0.012) K/mm3 Nucleated RBC % 0.0 (0.0-0.2) % PT 14.3 (11.1-14.7) Seconds INR 1.1 APTT 25.4 (22.3-36.8) Seconds Sodium (137-145) mmol/L Potassium (3.4-5.0) mmol/L Chloride (98-107) mmol/L Carbon Dioxide (22-30) mmol/L Anion Gap (4-12) mmol/L BUN (7-17) mg/dL Creatinine (0.7-1.0) mg/dL Estim Creat Clear Calc ml/min Estimated GFR (59 - ) Glucose (65-110) mg/dL POC Capillary Glucose > 500 H* (65-105) mg/dl Lactic Acid 2.4 H (0.7-2.0) mmol/L Calcium (8.4-10.2) mg/dL Magnesium (1.6-2.3) mg/dL Total Bilirubin (0.2-1.3) mg/dL AST (14-36) U/L ALT (6-35) U/L Alkaline Phosphatase (38-126) U/L NT-Pro-B Natriuret Pep (19.9-100) pg/mL Total Protein (6.3-8.2) g/dL Albumin (3.5-5.1) g/dL Beta-Hydroxybutyrate/Acetoacetate (0.02-0.27) mmol/L TSH (0.465-4.680) uIU/mL Urine Color Yellow (Yellow) Urine Appearance Clear (Clear) Urine pH 5.0 (5.0-9.0) Ur Specific [place] 1.030 (1.001-1.035) Urine Protein 1+ H (Negative) mg/dL Urine Glucose (UA) 3+ H (Negative) mg/dL Urine Ketones 1+ H (Negative) mg/dL Ur Blood (Man) Negative (Negative) Urine Nitrate Negative (Negative) Urine Bilirubin Negative (Negative) Urine Urobilinogen 0.2 (<2.0) mg/dL Add Ur Microanalysis Reviewed Leukocyte Esterase Rfl Negative (Negative) MARY JO/UL Urine RBC 0-2 (0-2) /hpf Urine WBC 11-20 H (0-3) /hpf Ur Squamous Epith Cells None seen (Few) /hpf Urine Bacteria Rare /hpf Urine Casts 0-2 Urine Yeast (Budding) Present H (None) /hpf 10/27/24 10/27/24 10/27/24 Range/Units 18:43 20:51 21:28 WBC (4.5-10.0) K/mm3 RBC (4.2-5.4) M/mm3 Hgb (12.0-15.0) g/dL Hct (37.0-47.0) % MCV (80-100) fl MCH (26-34) pg MCHC (32-36) g/dl RDW (11.5-14.5) % Plt Count (150-375) k/mm3 MPV (7.4-10.4) fl Immature Gran % (Auto) (0-0.5) % Neut % (Auto) (45.5-73.1) % Lymph % (Auto) (18.3-44.2) % Orange % (Auto) (2.6-8.5) % Eos % (Auto) (0-4.4) % Baso % (Auto) (0.2-1.2) % Lymph # (Auto) (0.9-3.2) K/mm3 Orange # (Auto) (0.1-0.6) K/mm3 Eos # (Auto) (0-0.3) K/mm3 Baso # (Auto) (0.0-0.1) K/mm3 Abs Immat Gran (auto) (0.00-0.031) K/mm3 Absolute Neuts (auto) (1.3-6.7) K/mm3 Absolute Nucleated RBC (0.0-0.012) K/mm3 Nucleated RBC % (0.0-0.2) % PT (11.1-14.7) Seconds INR APTT (22.3-36.8) Seconds Sodium 134 L (137-145) mmol/L Potassium 4.6 (3.4-5.0) mmol/L Chloride 92 L (98-107) mmol/L Carbon Dioxide 30 (22-30) mmol/L Anion Gap 12 (4-12) mmol/L BUN 56 H D (7-17) mg/dL Creatinine 1.37 H (0.7-1.0) mg/dL Estim Creat Clear Calc 24 ml/min Estimated GFR 37 L (59 - ) Glucose 738 H* (65-110) mg/dL POC Capillary Glucose > 500 H* (65-105) mg/dl Lactic Acid 1.5 (0.7-2.0) mmol/L Calcium 9.5 (8.4-10.2) mg/dL Magnesium 2.9 H (1.6-2.3) mg/dL Total Bilirubin 0.6 (0.2-1.3) mg/dL AST 23 (14-36) U/L ALT 17 (6-35) U/L Alkaline Phosphatase 171 H (38-126) U/L NT-Pro-B Natriuret Pep (19.9-100) pg/mL Total Protein 7.0 (6.3-8.2) g/dL Albumin 3.9 (3.5-5.1) g/dL Beta-Hydroxybutyrate/Acetoacetate 1.25 H (0.02-0.27) mmol/L TSH 0.231 L (0.465-4.680) uIU/mL Urine Color (Yellow) Urine Appearance (Clear) Urine pH (5.0-9.0) Ur Specific [place] (1.001-1.035) Urine Protein (Negative) mg/dL Urine Glucose (UA) (Negative) mg/dL Urine Ketones (Negative) mg/dL Ur Blood (Man) (Negative) Urine Nitrate (Negative) Urine Bilirubin (Negative) Urine Urobilinogen (<2.0) mg/dL Add Ur Microanalysis Leukocyte Esterase Rfl (Negative) MARY JO/UL Urine RBC (0-2) /hpf Urine WBC (0-3) /hpf Ur Squamous Epith Cells (Few) /hpf Urine Bacteria /hpf Urine Casts Urine Yeast (Budding) (None) /hpf 10/27/24 10/27/24 Range/Units 21:43 23:27 WBC (4.5-10.0) K/mm3 RBC (4.2-5.4) M/mm3 Hgb (12.0-15.0) g/dL Hct (37.0-47.0) % MCV (80-100) fl MCH (26-34) pg MCHC (32-36) g/dl RDW (11.5-14.5) % Plt Count (150-375) k/mm3 MPV (7.4-10.4) fl Immature Gran % (Auto) (0-0.5) % Neut % (Auto) (45.5-73.1) % Lymph % (Auto) (18.3-44.2) % Orange % (Auto) (2.6-8.5) % Eos % (Auto) (0-4.4) % Baso % (Auto) (0.2-1.2) % Lymph # (Auto) (0.9-3.2) K/mm3 Orange # (Auto) (0.1-0.6) K/mm3 Eos # (Auto) (0-0.3) K/mm3 Baso # (Auto) (0.0-0.1) K/mm3 Abs Immat Gran (auto) (0.00-0.031) K/mm3 Absolute Neuts (auto) (1.3-6.7) K/mm3 Absolute Nucleated RBC (0.0-0.012) K/mm3 Nucleated RBC % (0.0-0.2) % PT (11.1-14.7) Seconds INR APTT (22.3-36.8) Seconds Sodium 138 (137-145) mmol/L Potassium 4.0 (3.4-5.0) mmol/L Chloride 100 (98-107) mmol/L Carbon Dioxide 28 (22-30) mmol/L Anion Gap 10 (4-12) mmol/L BUN 48 H (7-17) mg/dL Creatinine 1.19 H (0.7-1.0) mg/dL Estim Creat Clear Calc 27 ml/min Estimated GFR 43 L (59 - ) Glucose 581 H* (65-110) mg/dL POC Capillary Glucose (65-105) mg/dl Lactic Acid (0.7-2.0) mmol/L Calcium 8.7 (8.4-10.2) mg/dL Magnesium (1.6-2.3) mg/dL Total Bilirubin (0.2-1.3) mg/dL AST (14-36) U/L ALT (6-35) U/L Alkaline Phosphatase (38-126) U/L NT-Pro-B Natriuret Pep 1360 H (19.9-100) pg/mL Total Protein (6.3-8.2) g/dL Albumin (3.5-5.1) g/dL Beta-Hydroxybutyrate/Acetoacetate (0.02-0.27) mmol/L TSH (0.465-4.680) uIU/mL Urine Color (Yellow) Urine Appearance (Clear) Urine pH (5.0-9.0) Ur Specific [place] (1.001-1.035) Urine Protein (Negative) mg/dL Urine Glucose (UA) (Negative) mg/dL Urine Ketones (Negative) mg/dL Ur Blood (Man) (Negative) Urine Nitrate (Negative) Urine Bilirubin (Negative) Urine Urobilinogen (<2.0) mg/dL Add Ur Microanalysis Leukocyte Esterase Rfl (Negative) MARY JO/UL Urine RBC (0-2) /hpf Urine WBC (0-3) /hpf Ur Squamous Epith Cells (Few) /hpf Urine Bacteria /hpf Urine Casts Urine Yeast (Budding) (None) /hpf <Sindy Triana PA-C - Last Filed: 10/27/24 16:55> Lab Results 10/27/24 10/27/24 10/27/24 Range/Units 16:47 17:28 17:45 WBC 11.8 H (4.5-10.0) K/mm3 RBC 4.37 (4.2-5.4) M/mm3 Hgb 13.3 (12.0-15.0) g/dL Hct 41.3 (37.0-47.0) % MCV 94.5 (80-100) fl MCH 30.4 (26-34) pg MCHC 32.2 (32-36) g/dl RDW 13.3 (11.5-14.5) % Plt Count 277 (150-375) k/mm3 MPV 11.1 H (7.4-10.4) fl Immature Gran % (Auto) 0.5 (0-0.5) % Neut % (Auto) 76.1 H (45.5-73.1) % Lymph % (Auto) 15.5 L (18.3-44.2) % Orange % (Auto) 7.2 (2.6-8.5) % Eos % (Auto) 0.4 (0-4.4) % Baso % (Auto) 0.3 (0.2-1.2) % Lymph # (Auto) 1.84 (0.9-3.2) K/mm3 Orange # (Auto) 0.9 H (0.1-0.6) K/mm3 Eos # (Auto) 0.1 (0-0.3) K/mm3 Baso # (Auto) 0.0 (0.0-0.1) K/mm3 Abs Immat Gran (auto) 0.06 H (0.00-0.031) K/mm3 Absolute Neuts (auto) 9.0 H (1.3-6.7) K/mm3 Absolute Nucleated RBC 0.000 (0.0-0.012) K/mm3 Nucleated RBC % 0.0 (0.0-0.2) % PT 14.3 (11.1-14.7) Seconds INR 1.1 APTT 25.4 (22.3-36.8) Seconds Sodium (137-145) mmol/L Potassium (3.4-5.0) mmol/L Chloride (98-107) mmol/L Carbon Dioxide (22-30) mmol/L Anion Gap (4-12) mmol/L BUN (7-17) mg/dL Creatinine (0.7-1.0) mg/dL Estim Creat Clear Calc ml/min Estimated GFR (59 - ) Glucose (65-110) mg/dL POC Capillary Glucose > 500 H* (65-105) mg/dl Lactic Acid 2.4 H (0.7-2.0) mmol/L Calcium (8.4-10.2) mg/dL Magnesium (1.6-2.3) mg/dL Total Bilirubin (0.2-1.3) mg/dL AST (14-36) U/L ALT (6-35) U/L Alkaline Phosphatase (38-126) U/L NT-Pro-B Natriuret Pep (19.9-100) pg/mL Total Protein (6.3-8.2) g/dL Albumin (3.5-5.1) g/dL Beta-Hydroxybutyrate/Acetoacetate (0.02-0.27) mmol/L TSH (0.465-4.680) uIU/mL Urine Color Yellow (Yellow) Urine Appearance Clear (Clear) Urine pH 5.0 (5.0-9.0) Ur Specific [place] 1.030 (1.001-1.035) Urine Protein 1+ H (Negative) mg/dL Urine Glucose (UA) 3+ H (Negative) mg/dL Urine Ketones 1+ H (Negative) mg/dL Ur Blood (Man) Negative (Negative) Urine Nitrate Negative (Negative) Urine Bilirubin Negative (Negative) Urine Urobilinogen 0.2 (<2.0) mg/dL Add Ur Microanalysis Reviewed Leukocyte Esterase Rfl Negative (Negative) MARY JO/UL Urine RBC 0-2 (0-2) /hpf Urine WBC 11-20 H (0-3) /hpf Ur Squamous Epith Cells None seen (Few) /hpf Urine Bacteria Rare /hpf Urine Casts 0-2 Urine Yeast (Budding) Present H (None) /hpf 10/27/24 10/27/24 10/27/24 Range/Units 18:43 20:51 21:28 WBC (4.5-10.0) K/mm3 RBC (4.2-5.4) M/mm3 Hgb (12.0-15.0) g/dL Hct (37.0-47.0) % MCV (80-100) fl MCH (26-34) pg MCHC (32-36) g/dl RDW (11.5-14.5) % Plt Count (150-375) k/mm3 MPV (7.4-10.4) fl Immature Gran % (Auto) (0-0.5) % Neut % (Auto) (45.5-73.1) % Lymph % (Auto) (18.3-44.2) % Orange % (Auto) (2.6-8.5) % Eos % (Auto) (0-4.4) % Baso % (Auto) (0.2-1.2) % Lymph # (Auto) (0.9-3.2) K/mm3 Orange # (Auto) (0.1-0.6) K/mm3 Eos # (Auto) (0-0.3) K/mm3 Baso # (Auto) (0.0-0.1) K/mm3 Abs Immat Gran (auto) (0.00-0.031) K/mm3 Absolute Neuts (auto) (1.3-6.7) K/mm3 Absolute Nucleated RBC (0.0-0.012) K/mm3 Nucleated RBC % (0.0-0.2) % PT (11.1-14.7) Seconds INR APTT (22.3-36.8) Seconds Sodium 134 L (137-145) mmol/L Potassium 4.6 (3.4-5.0) mmol/L Chloride 92 L (98-107) mmol/L Carbon Dioxide 30 (22-30) mmol/L Anion Gap 12 (4-12) mmol/L BUN 56 H D (7-17) mg/dL Creatinine 1.37 H (0.7-1.0) mg/dL Estim Creat Clear Calc 24 ml/min Estimated GFR 37 L (59 - ) Glucose 738 H* (65-110) mg/dL POC Capillary Glucose > 500 H* (65-105) mg/dl Lactic Acid 1.5 (0.7-2.0) mmol/L Calcium 9.5 (8.4-10.2) mg/dL Magnesium 2.9 H (1.6-2.3) mg/dL Total Bilirubin 0.6 (0.2-1.3) mg/dL AST 23 (14-36) U/L ALT 17 (6-35) U/L Alkaline Phosphatase 171 H (38-126) U/L NT-Pro-B Natriuret Pep (19.9-100) pg/mL Total Protein 7.0 (6.3-8.2) g/dL Albumin 3.9 (3.5-5.1) g/dL Beta-Hydroxybutyrate/Acetoacetate 1.25 H (0.02-0.27) mmol/L TSH 0.231 L (0.465-4.680) uIU/mL Urine Color (Yellow) Urine Appearance (Clear) Urine pH (5.0-9.0) Ur Specific [place] (1.001-1.035) Urine Protein (Negative) mg/dL Urine Glucose (UA) (Negative) mg/dL Urine Ketones (Negative) mg/dL Ur Blood (Man) (Negative) Urine Nitrate (Negative) Urine Bilirubin (Negative) Urine Urobilinogen (<2.0) mg/dL Add Ur Microanalysis Leukocyte Esterase Rfl (Negative) MARY JO/UL Urine RBC (0-2) /hpf Urine WBC (0-3) /hpf Ur Squamous Epith Cells (Few) /hpf Urine Bacteria /hpf Urine Casts Urine Yeast (Budding) (None) /hpf 10/27/24 10/27/24 Range/Units 21:43 23:27 WBC (4.5-10.0) K/mm3 RBC (4.2-5.4) M/mm3 Hgb (12.0-15.0) g/dL Hct (37.0-47.0) % MCV (80-100) fl MCH (26-34) pg MCHC (32-36) g/dl RDW (11.5-14.5) % Plt Count (150-375) k/mm3 MPV (7.4-10.4) fl Immature Gran % (Auto) (0-0.5) % Neut % (Auto) (45.5-73.1) % Lymph % (Auto) (18.3-44.2) % Orange % (Auto) (2.6-8.5) % Eos % (Auto) (0-4.4) % Baso % (Auto) (0.2-1.2) % Lymph # (Auto) (0.9-3.2) K/mm3 Orange # (Auto) (0.1-0.6) K/mm3 Eos # (Auto) (0-0.3) K/mm3 Baso # (Auto) (0.0-0.1) K/mm3 Abs Immat Gran (auto) (0.00-0.031) K/mm3 Absolute Neuts (auto) (1.3-6.7) K/mm3 Absolute Nucleated RBC (0.0-0.012) K/mm3 Nucleated RBC % (0.0-0.2) % PT (11.1-14.7) Seconds INR APTT (22.3-36.8) Seconds Sodium 138 (137-145) mmol/L Potassium 4.0 (3.4-5.0) mmol/L Chloride 100 (98-107) mmol/L Carbon Dioxide 28 (22-30) mmol/L Anion Gap 10 (4-12) mmol/L BUN 48 H (7-17) mg/dL Creatinine 1.19 H (0.7-1.0) mg/dL Estim Creat Clear Calc 27 ml/min Estimated GFR 43 L (59 - ) Glucose 581 H* (65-110) mg/dL POC Capillary Glucose (65-105) mg/dl Lactic Acid (0.7-2.0) mmol/L Calcium 8.7 (8.4-10.2) mg/dL Magnesium (1.6-2.3) mg/dL Total Bilirubin (0.2-1.3) mg/dL AST (14-36) U/L ALT (6-35) U/L Alkaline Phosphatase (38-126) U/L NT-Pro-B Natriuret Pep 1360 H (19.9-100) pg/mL Total Protein (6.3-8.2) g/dL Albumin (3.5-5.1) g/dL Beta-Hydroxybutyrate/Acetoacetate (0.02-0.27) mmol/L TSH (0.465-4.680) uIU/mL Urine Color (Yellow) Urine Appearance (Clear) Urine pH (5.0-9.0) Ur Specific [place] (1.001-1.035) Urine Protein (Negative) mg/dL Urine Glucose (UA) (Negative) mg/dL Urine Ketones (Negative) mg/dL Ur Blood (Man) (Negative) Urine Nitrate (Negative) Urine Bilirubin (Negative) Urine Urobilinogen (<2.0) mg/dL Add Ur Microanalysis Leukocyte Esterase Rfl (Negative) MARY JO/UL Urine RBC (0-2) /hpf Urine WBC (0-3) /hpf Ur Squamous Epith Cells (Few) /hpf Urine Bacteria /hpf Urine Casts Urine Yeast (Budding) (None) /hpf <Amanda Hilario PA-C - Last Filed: 10/28/24 00:40> Lab Results 10/27/24 10/27/24 10/27/24 Range/Units 16:47 17:28 17:45 WBC 11.8 H (4.5-10.0) K/mm3 RBC 4.37 (4.2-5.4) M/mm3 Hgb 13.3 (12.0-15.0) g/dL Hct 41.3 (37.0-47.0) % MCV 94.5 (80-100) fl MCH 30.4 (26-34) pg MCHC 32.2 (32-36) g/dl RDW 13.3 (11.5-14.5) % Plt Count 277 (150-375) k/mm3 MPV 11.1 H (7.4-10.4) fl Immature Gran % (Auto) 0.5 (0-0.5) % Neut % (Auto) 76.1 H (45.5-73.1) % Lymph % (Auto) 15.5 L (18.3-44.2) % Orange % (Auto) 7.2 (2.6-8.5) % Eos % (Auto) 0.4 (0-4.4) % Baso % (Auto) 0.3 (0.2-1.2) % Lymph # (Auto) 1.84 (0.9-3.2) K/mm3 Orange # (Auto) 0.9 H (0.1-0.6) K/mm3 Eos # (Auto) 0.1 (0-0.3) K/mm3 Baso # (Auto) 0.0 (0.0-0.1) K/mm3 Abs Immat Gran (auto) 0.06 H (0.00-0.031) K/mm3 Absolute Neuts (auto) 9.0 H (1.3-6.7) K/mm3 Absolute Nucleated RBC 0.000 (0.0-0.012) K/mm3 Nucleated RBC % 0.0 (0.0-0.2) % PT 14.3 (11.1-14.7) Seconds INR 1.1 APTT 25.4 (22.3-36.8) Seconds Sodium (137-145) mmol/L Potassium (3.4-5.0) mmol/L Chloride (98-107) mmol/L Carbon Dioxide (22-30) mmol/L Anion Gap (4-12) mmol/L BUN (7-17) mg/dL Creatinine (0.7-1.0) mg/dL Estim Creat Clear Calc ml/min Estimated GFR (59 - ) Glucose (65-110) mg/dL POC Capillary Glucose > 500 H* (65-105) mg/dl Lactic Acid 2.4 H (0.7-2.0) mmol/L Calcium (8.4-10.2) mg/dL Magnesium (1.6-2.3) mg/dL Total Bilirubin (0.2-1.3) mg/dL AST (14-36) U/L ALT (6-35) U/L Alkaline Phosphatase (38-126) U/L NT-Pro-B Natriuret Pep (19.9-100) pg/mL Total Protein (6.3-8.2) g/dL Albumin (3.5-5.1) g/dL Beta-Hydroxybutyrate/Acetoacetate (0.02-0.27) mmol/L TSH (0.465-4.680) uIU/mL Urine Color Yellow (Yellow) Urine Appearance Clear (Clear) Urine pH 5.0 (5.0-9.0) Ur Specific [place] 1.030 (1.001-1.035) Urine Protein 1+ H (Negative) mg/dL Urine Glucose (UA) 3+ H (Negative) mg/dL Urine Ketones 1+ H (Negative) mg/dL Ur Blood (Man) Negative (Negative) Urine Nitrate Negative (Negative) Urine Bilirubin Negative (Negative) Urine Urobilinogen 0.2 (<2.0) mg/dL Add Ur Microanalysis Reviewed Leukocyte Esterase Rfl Negative (Negative) MARY JO/UL Urine RBC 0-2 (0-2) /hpf Urine WBC 11-20 H (0-3) /hpf Ur Squamous Epith Cells None seen (Few) /hpf Urine Bacteria Rare /hpf Urine Casts 0-2 Urine Yeast (Budding) Present H (None) /hpf 10/27/24 10/27/24 10/27/24 Range/Units 18:43 20:51 21:28 WBC (4.5-10.0) K/mm3 RBC (4.2-5.4) M/mm3 Hgb (12.0-15.0) g/dL Hct (37.0-47.0) % MCV (80-100) fl MCH (26-34) pg MCHC (32-36) g/dl RDW (11.5-14.5) % Plt Count (150-375) k/mm3 MPV (7.4-10.4) fl Immature Gran % (Auto) (0-0.5) % Neut % (Auto) (45.5-73.1) % Lymph % (Auto) (18.3-44.2) % Orange % (Auto) (2.6-8.5) % Eos % (Auto) (0-4.4) % Baso % (Auto) (0.2-1.2) % Lymph # (Auto) (0.9-3.2) K/mm3 Orange # (Auto) (0.1-0.6) K/mm3 Eos # (Auto) (0-0.3) K/mm3 Baso # (Auto) (0.0-0.1) K/mm3 Abs Immat Gran (auto) (0.00-0.031) K/mm3 Absolute Neuts (auto) (1.3-6.7) K/mm3 Absolute Nucleated RBC (0.0-0.012) K/mm3 Nucleated RBC % (0.0-0.2) % PT (11.1-14.7) Seconds INR APTT (22.3-36.8) Seconds Sodium 134 L (137-145) mmol/L Potassium 4.6 (3.4-5.0) mmol/L Chloride 92 L (98-107) mmol/L Carbon Dioxide 30 (22-30) mmol/L Anion Gap 12 (4-12) mmol/L BUN 56 H D (7-17) mg/dL Creatinine 1.37 H (0.7-1.0) mg/dL Estim Creat Clear Calc 24 ml/min Estimated GFR 37 L (59 - ) Glucose 738 H* (65-110) mg/dL POC Capillary Glucose > 500 H* (65-105) mg/dl Lactic Acid 1.5 (0.7-2.0) mmol/L Calcium 9.5 (8.4-10.2) mg/dL Magnesium 2.9 H (1.6-2.3) mg/dL Total Bilirubin 0.6 (0.2-1.3) mg/dL AST 23 (14-36) U/L ALT 17 (6-35) U/L Alkaline Phosphatase 171 H (38-126) U/L NT-Pro-B Natriuret Pep (19.9-100) pg/mL Total Protein 7.0 (6.3-8.2) g/dL Albumin 3.9 (3.5-5.1) g/dL Beta-Hydroxybutyrate/Acetoacetate 1.25 H (0.02-0.27) mmol/L TSH 0.231 L (0.465-4.680) uIU/mL Urine Color (Yellow) Urine Appearance (Clear) Urine pH (5.0-9.0) Ur Specific [place] (1.001-1.035) Urine Protein (Negative) mg/dL Urine Glucose (UA) (Negative) mg/dL Urine Ketones (Negative) mg/dL Ur Blood (Man) (Negative) Urine Nitrate (Negative) Urine Bilirubin (Negative) Urine Urobilinogen (<2.0) mg/dL Add Ur Microanalysis Leukocyte Esterase Rfl (Negative) MARY JO/UL Urine RBC (0-2) /hpf Urine WBC (0-3) /hpf Ur Squamous Epith Cells (Few) /hpf Urine Bacteria /hpf Urine Casts Urine Yeast (Budding) (None) /hpf 10/27/24 10/27/24 Range/Units 21:43 23:27 WBC (4.5-10.0) K/mm3 RBC (4.2-5.4) M/mm3 Hgb (12.0-15.0) g/dL Hct (37.0-47.0) % MCV (80-100) fl MCH (26-34) pg MCHC (32-36) g/dl RDW (11.5-14.5) % Plt Count (150-375) k/mm3 MPV (7.4-10.4) fl Immature Gran % (Auto) (0-0.5) % Neut % (Auto) (45.5-73.1) % Lymph % (Auto) (18.3-44.2) % Orange % (Auto) (2.6-8.5) % Eos % (Auto) (0-4.4) % Baso % (Auto) (0.2-1.2) % Lymph # (Auto) (0.9-3.2) K/mm3 Orange # (Auto) (0.1-0.6) K/mm3 Eos # (Auto) (0-0.3) K/mm3 Baso # (Auto) (0.0-0.1) K/mm3 Abs Immat Gran (auto) (0.00-0.031) K/mm3 Absolute Neuts (auto) (1.3-6.7) K/mm3 Absolute Nucleated RBC (0.0-0.012) K/mm3 Nucleated RBC % (0.0-0.2) % PT (11.1-14.7) Seconds INR APTT (22.3-36.8) Seconds Sodium 138 (137-145) mmol/L Potassium 4.0 (3.4-5.0) mmol/L Chloride 100 (98-107) mmol/L Carbon Dioxide 28 (22-30) mmol/L Anion Gap 10 (4-12) mmol/L BUN 48 H (7-17) mg/dL Creatinine 1.19 H (0.7-1.0) mg/dL Estim Creat Clear Calc 27 ml/min Estimated GFR 43 L (59 - ) Glucose 581 H* (65-110) mg/dL POC Capillary Glucose (65-105) mg/dl Lactic Acid (0.7-2.0) mmol/L Calcium 8.7 (8.4-10.2) mg/dL Magnesium (1.6-2.3) mg/dL Total Bilirubin (0.2-1.3) mg/dL AST (14-36) U/L ALT (6-35) U/L Alkaline Phosphatase (38-126) U/L NT-Pro-B Natriuret Pep 1360 H (19.9-100) pg/mL Total Protein (6.3-8.2) g/dL Albumin (3.5-5.1) g/dL Beta-Hydroxybutyrate/Acetoacetate (0.02-0.27) mmol/L TSH (0.465-4.680) uIU/mL Urine Color (Yellow) Urine Appearance (Clear) Urine pH (5.0-9.0) Ur Specific [place] (1.001-1.035) Urine Protein (Negative) mg/dL Urine Glucose (UA) (Negative) mg/dL Urine Ketones (Negative) mg/dL Ur Blood (Man) (Negative) Urine Nitrate (Negative) Urine Bilirubin (Negative) Urine Urobilinogen (<2.0) mg/dL Add Ur Microanalysis Leukocyte Esterase Rfl (Negative) MARY JO/UL Urine RBC (0-2) /hpf Urine WBC (0-3) /hpf Ur Squamous Epith Cells (Few) /hpf Urine Bacteria /hpf Urine Casts Urine Yeast (Budding) (None) /hpf <Patito Warren MD - Last Filed: 10/28/24 01:00> ABG Data ABG results: 10/27/24 20:16 VBG pH 7.416 H* VBG pCO2 45.0 VBG pO2 < 27.0 L VBG HCO3 28.3 FiO2 21 <Sindy Triana PA-C - Last Filed: 10/27/24 16:55> 10/27/24 20:16 VBG pH 7.416 H* VBG pCO2 45.0 VBG pO2 < 27.0 L VBG HCO3 28.3 FiO2 21 <Amanda Hilario PA-C - Last Filed: 10/28/24 00:40> 10/27/24 20:16 VBG pH 7.416 H* VBG pCO2 45.0 VBG pO2 < 27.0 L VBG HCO3 28.3 FiO2 21 <Patito Warren MD - Last Filed: 10/28/24 01:00> Attestation: I personally reviewed and interpreted this ABG as follows: <Amanda Hilario PA-C - Last Filed: 10/28/24 00:40> Imaging Data Attestation: I personally reviewed and interpreted this imaging study as follows: <Amanda Hilario PA-C - Last Filed: 10/28/24 00:40> Radiologist's impression: ITS Impressions Head CT 10/27/24 17:06 IMPRESSION: No acute intracranial findings. Chest X-Ray 10/27/24 17:17 IMPRESSION: No acute cardiopulmonary pathology. <Amanda Hilario PA-C - Last Filed: 10/28/24 00:40> ECG Data EKG #1: Attestation: I personally reviewed and interpreted this ECG as follows: <Amanda Hilario PA-C - Last Filed: 10/28/24 00:40> ECG completion date: 10/27/24 <KAREN Berman Last Filed: 10/28/24 00:40> ECG completion time: 17:21 <Amanda Hilario PA-C - Last Filed: 10/28/24 00:40> EKG Interpretation: normal rate (74), sinus rhythm and non-specific ST changes <KAREN Berman Last Filed: 10/28/24 00:40> Discharge Plan Discharge Clinical Impression: Hyperglycemia, Low serum thyroid stimulating hormone (TSH) Dementia Qualifiers: Dementia type: unspecified type Dementia severity: unspecified severity Dementia behavioral or psychological symptom: unspecified whether behavioral, psychotic, or mood disturbance or anxiety Qualified Code(s): F03.90 - Unspecified dementia, unspecified severity, without behavioral disturbance, psychotic disturbance, mood disturbance, and anxiety <Sindy Triana PA-C - Last Filed: 10/27/24 16:55> Patient Disposition: Still a Patient <Sindy Triana PA-C - Last Filed: 10/27/24 16:55> Condition: Stable <Sindy Triana PA-C - Last Filed: 10/27/24 16:55>
[2024-10-27 17:16] LABS: Glucose Point of Care > 500 mg/dl (65-105)
[2024-10-27 17:34] LABS: Basophils Percent Auto 0.3 % (0.2-1.2); Eosinophils Absolute Auto 0.1 K/mm3 (0-0.3); Eosinophils Percent Auto 0.4 % (0-4.4); Hematocrit 41.3 % (37.0-47.0); Hemoglobin 13.3 g/dL (12.0-15.0); Immature Granulocyte Absolute 0.06 K/mm3 (0.00-0.031); Immature Granulocyte Percent A 0.5 % (0-0.5); Lymphocytes Absolute Auto 1.84 K/mm3 (0.9-3.2); Lymphocytes Percent Auto 15.5 % (18.3-44.2); Mean Corpuscular HGB Conc 32.2 g/dl (32-36); Mean Corpuscular Hemoglobin 30.4 pg (26-34); Mean Corpuscular Volume 94.5 fl (80-100); Mean Platelet Volume 11.1 fl (7.4-10.4); Monocytes Absolute Auto 0.9 K/mm3 (0.1-0.6); Monocytes Percent Auto 7.2 % (2.6-8.5); Neutrophils Percent Auto 76.1 % (45.5-73.1); Platelet Count Result 277 k/mm3 (150-375); Red Blood Count 4.37 M/mm3 (4.2-5.4); Red Cell Distribution Width 13.3 % (11.5-14.5); White Blood Count 11.8 K/mm3 (4.5-10.0)
[2024-10-27 17:44] LABS: Partial Thromboplastin Time 25.4 Seconds (22.3-36.8)
[2024-10-27 17:45] LABS: INR 1.1; Prothrombin Time 14.3 Seconds (11.1-14.7)
[2024-10-27 17:46] LABS: Lactic Acid Reflex 2.4 mmol/L (0.7-2.0)
--- OUTSIDE RECORDS SUMMARY | 2024-10-27 17:58 | XMS_ITS | Clinical Summary ---
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
--- OUTSIDE RECORDS SUMMARY | 2024-10-27 17:59 | XMS_ITS | Referral Summary ---
Author Organization [facility] [address] [facility] Address [address] [place] [address] Care Team Providers Care Bingo Floater Name Role Phone Chelly Belcher Primary Care Provider [phone]- [phone] Encounters Date Type Department Care Team Description 10/05/2024 1:30 PM CDT Office Visit [facility] Family Medicine [address] [place] [address] Chelly Belcher PA Medicare annual [...] disease (HCC); BMI 27.0-27.9,adult 09/24/2024 Results Follow-Up [facility] Family Medicine [address] [place] [address] Chelly Belcher PA 09/20/2024 10:45 AM CDT Office Visit [facility] Orthopedics and Sports Medicine [address] [place] [phone] Avelino Sky MD Rotator cuff tear arthropathy of right shoulder (Primary Dx); Chronic left shoulder pain 09/15/2024 Orders Only [facility] [address] [place] [address] Chelly Belcher PA Hypertension associated with diabetes (HCC) (Primary Dx); 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); 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); Vitamin D deficiency; Other fatigue; Stage 3a chronic kidney disease (HCC) 08/15/2024 Telephone [facility] [address] [place] [address] Chelly Belcher PA from Last 3 Months Allergies Active Allergy Reactions Criticality Noted Date Comments Codeine Unknown 03/22/2018 unknown Codeine Phosphate Unknown 10/18/2018 Lovastatin Unknown 04/13/2017 Metronidazole Unknown 03/22/2018 unknown Penicillin V Unknown 03/22/2018 unknown Medications Ultra Thin Lancets 30 gauge [facility] USE TO TEST ONCE DAILY DIRECTED 100 each 3 04/16/20 20 Active blood glucose diagnostic (True Metrix Glucose Test Strip) stripIndications: Type 2 diabetes mellitus with hyperglycemia, without long-term current use of insulin ([facility]) TEST ONCE DAILY DIRECTED 100 each 3 [...] 1 tablet (75 mcg total) 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 Jackson [facility] this week. She is actually getting [...] 06/11/2023 Assessment & Plan (06/11/2023 11:21 PM SMELTER LINER): Flu vaccine updated in the office today [...] eat. Assessment & Plan (06/11/2023 11:19 PM SMELTER LINER): Patient with Alzheimer's. She unable to tolerate [...] dementia Assessment & Plan (05/21/2022 1:40 PM SMELTER LINER): This is a significant, separately identifiable problem [...] (11/07/2021): Added automatically from request for surgery [id number] Gastric ulcer 11/07/2021 Overview (11/07/2021): Added automatically from request for surgery [id number] Mouth sores 06/16/2021 Assessment & Plan (06/16/2021 10:07 PM SMELTER LINER): Mouth sores of unknown etiology but they [...] GI Assessment & Plan (05/21/2022 1:38 PM SMELTER LINER): Patient's states the seem to be a little bit better. Continue per GI. Assessment & Plan (12/02/2021 11:10 PM CDT): Continue perDr. Abisaizabarhi Assessment & Plan (05/11/2021 8:22 PM CDT): See dyspepsia and bad taste in mouth. Other fatigue 11/18/2020 Assessment & Plan (06/11/2023 11:21 PM SMELTER LINER): Probably multifactorial. Check labs and followup to [...] office. Assessment & Plan (06/10/2020 2:16 PM SMELTER LINER): Check xray due to fall in the bathroom. Pt is poor historian. Flu vaccine need 06/10/2020 Assessment & Plan (05/11/2021 8:22 PM CDT): Vaccine updated in office today Assessment & Plan (06/10/2020 2:30 PM SMELTER LINER): Updated in the office Nonrheumatic aortic valve stenosis 06/10/2020 Overview (06/10/2020): December 2019 ECHO Assessment & Plan (11/18/2022 9:53 PM CDT): Continue per cardio. Murmur sounds the same today Assessment & Plan (06/10/2020 2:28 PM SMELTER LINER): Will refer to cardio for further evaluation [...] make a big difference. Will refer to [facility] GI for further evaluation and recommendations. She prefers to be seen in the [facility] location but her whole road. Assessment & Plan (06/10/2020 2:29 PM SMELTER LINER): Continue per Dr. Hood. May restart PPI [...] make a big difference. Will refer to [facility] GI for further evaluation and recommendations. She prefers to be seen in the [facility] location but her whole road. Assessment [...] labs. Assessment & Plan (06/11/2023 11:19 PM SMELTER LINER): Avoid nephrotoxic drugs including NSAIDs. Monitor labs. Assessment & Plan (11/18/2022 9:53 PM CDT): Avoid nephrotoxic drugs including NSAIDs. Monitor labs. Assessment & Plan (05/21/2022 1:37 PM SMELTER LINER): Avoid nephrotoxic drugs including NSAIDs. Monitor labs. [...] ramipril Assessment & Plan (06/11/2023 11:21 PM SMELTER LINER): Bp is stable/in acceptable range for any co-morbidities. Encouraged to limit sodium intake and exercise for weight control. Continue bisoprolol hydrochlorothiazide and ramipril Assessment & Plan (11/18/2022 9:50 PM CDT): Bp is stable/in acceptable range for any co-morbidities. Encouraged to limit sodium intake and exercise for weight control. Continue bisoprolol hydrochlorothiazide and ramipril Assessment & Plan (05/21/2022 1:36 PM SMELTER LINER): Bp is stable/in acceptable range for any co-morbidities. Encouraged to limit sodium intake and exercise for weight control. Continue bisoprolol hydrochlorothiazide and ramipril Assessment & Plan (12/02/2021 11:08 PM CDT): Bp is stable/in acceptable range for any co-morbidities. Encouraged to limit sodium intake and exercise for weight control. Continue bisoprolol hydrochlorothiazide ramipril and amlodipine Assessment & Plan (06/16/2021 10:07 PM SMELTER LINER): Bp is stable/in acceptable range for any [...] ramipril Assessment & Plan (06/10/2020 2:31 PM SMELTER LINER): Stressed importance of continued A1c control to [...] of continued A1c control to minimize the termite treater helper effects of diabetes. Bring accuchecks to office [...] controlled. Assessment & Plan (06/11/2023 11:20 PM SMELTER LINER): Stressed importance of continued A1c control to [...] drugs Assessment & Plan (05/21/2022 1:36 PM SMELTER LINER): Encouraged patient to follow low fat/low chol [...] statin Assessment & Plan (06/10/2020 2:31 PM SMELTER LINER): Encouraged patient to follow fat/low chol diet [...] of continued A1c control to minimize the termite treater helper effects of diabetes. Bring accuchecks to office [...] medication. Assessment & Plan (06/11/2023 11:20 PM SMELTER LINER): Stressed importance of continued A1c control to minimize the termite treater helper effects of diabetes. Bring accuchecks to office [...] pressure Assessment & Plan (05/21/2022 1:36 PM SMELTER LINER): Bp is stable/in acceptable range for any [...] of continued A1c control to minimize the termite treater helper effects of diabetes. Bring accuchecks to office [...] to follow with the GI down at [facility] and [facility]. Currently managed without additional medications as the Reglan did not really help. Assessment & Plan (11/18/2022 9:51 PM CDT): GI symptoms have improved. Continue per GI. Assessment & Plan (05/21/2022 1:41 PM SMELTER LINER): No change. Continue per GI. Continue to [...] maintain. Assessment & Plan (05/25/2023 11:33 AM SMELTER LINER): Weight/BMI is in healthy range. Continue healthy lifestyle to maintain. BMI 25.0-25.9,adult 11/18/2022 05/25/20 23 Assessment & Plan (11/18/2022 11:01 AM CDT): Weight/BMI is in healthy range. Continue healthy lifestyle to maintain. Need for vaccination 05/21/2022 023 Assessment & Plan (05/21/2022 1:38 PM SMELTER LINER): Flu vaccine updated in the office today Burning with urination 01/30/202205/21 Assessment & Plan (01/30/2022 4:18 PM CDT): Pt presents with dysuria. Urine dip completed. Send urine culture. Antibiotic to pharmacy. Reviewed bladder care. BMI 26.0-26.9,adult 11/18/2021 11/19/19 23 Assessment & Plan (05/21/2022 1:38 PM SMELTER LINER): Weight/BMI is in healthy range. Continue healthy lifestyle to maintain. Assessment & Plan (11/18/2021 3:19 PM CDT): Weight/BMI is in healthy range. Continue healthy lifestyle to maintain. Obesity (BMI 30-39.9) 05/27/20212021 Assessment & Plan (05/27/2021 10:48 AM SMELTER LINER): Obesity is unchanged. Discussed the patient's BMI. The BMI is above average. BMI management plan is completed. BMI Follow-up includes: nutrition counseling, exercise counseling and education provided. BMI 32.0-32.9,adult 05/27/2021 11/19/19 22 Assessment & Plan (05/27/2021 10:48 AM SMELTER LINER): Obesity is unchanged. Discussed the patient's BMI. [...] 04/17/2024 Assessment & Plan (06/11/2023 11:20 PM SMELTER LINER): Encouraged healthy lifestyle, good nutrition and exercise. Encouraged Calcium and Vitamin D and weight bearing exercise for bone health. Reviewed immunizations. Reviewed age appropirate screenings. Medicare Wellness Documentation is completed within the chart Assessment & Plan (05/21/2022 1:38 PM SMELTER LINER): Encouraged healthy lifestyle, good nutrition and exercise. [...] 12/28/201904/12 Assessment & Plan (06/11/2023 11:21 PM SMELTER LINER): Continue levothyroxine. Monitor labs. Assessment & Plan (11/18/2022 9:53 PM CDT): Continue levothyroxine. Monitor labs. Assessment & Plan (05/21/2022 1:37 PM SMELTER LINER): Continue levothyroxine 75 mcg. Continue to monitor labs. Assessment & Plan (12/02/2021 11:10 PM CDT): Continue levothyroxine. Monitor labs. Assessment & Plan (11/18/2020 6:55 PM CDT): Continue levothyroxine. Monitor labs. Assessment & Plan (06/10/2020 2:29 PM SMELTER LINER): Continue levothyroxine Assessment & Plan (01/08/2020 2:38 [...] 21 Assessment & Plan (06/10/2020 2:14 PM SMELTER LINER): Obesity is unchanged. Discussed the patient's BMI. [...] 04/17/2024 Assessment & Plan (06/11/2023 11:20 PM SMELTER LINER): Stressed importance of continued A1c control to minimize the termite treater helper effects of diabetes. Bring accuchecks to office [...] monitor Assessment & Plan (05/21/2022 1:42 PM SMELTER LINER): This is a significant, separately identifiable problem that was evaluated and managed on the same day as the wellness exam Stressed importance of continued A1c control to minimize the termite treater helper effects of diabetes. Bring accuchecks to office [...] as prescribed. Get annual eye exam. Encouraged PRETYT/Statin if able to tolerate. Encouraged weight control and encouraged diabetic diet and exercise. Continue metformin Assessment & Plan (01/08/2020 2:36 PM CDT): Stressed importance of continued A1c control to minimize the termite treater helper effects of diabetes. Bring accuchecks to office [...] progression. Assessment & Plan (06/10/2020 2:26 PM SMELTER LINER): Sxs are progressing. She did not tolerate [...] CDT Respiratory Rate 16 05/21/2022 11:15 AM SMELTER LINER Oxygen Saturation 95% 10/05/2024 1:09 PM CDT Inhaled Oxygen Concentration - - Weight 69.2 kg (152 lb 8 oz) 06/27/2024 11:43 AM SMELTER LINER Height 157.5 cm (5' 2 ) 10/05/2024 1:09 PM CDT Body Mass Index 27.89 06/27/2024 11:43 AM SMELTER LINER Plan of Treatment Not on file Procedures [...] (HCC) Stage 3a chronic kidney disease (HCC) GA ARTHROCENTESIS ASPIR&/INJ MAJOR JT/BURSA W/O US Routine [...] URINE ORDERABLES Final Result [facility] [address] [address] * Vitamin D 25 hydroxy (09/23/2024 9:10 AM CDT) Pathologist [facility] Vitamin D 25-OH 34 30 - 100 ng/mL Paixie.[email or web address]-L meir Comment: Vitamin D Status 25-OH Vitamin D: Deficiency: <20 ng/mL Insufficiency: 20 - 29 ng/mL Optimal: > or = 30 ng/mL For 25-OH Vitamin D testing on patients on D2-supplementation and patients for whom quantitation of D2 and D3 fractions is required, the QuestAssureD(TM) 25-OH VIT D, (D2,D3), LC/MS/MS is recommended: order code 36800 (patients >2yrs). See Note 1 Note 1 For additional information, please refer to http://education.[employer]/faq/DUQ273 (This link is being provided for informational/ educational purposes only.) Blood 09/23/2024 9:10 AM CDT 09/23/2024 9:10 AM CDT Narrative [facility] - 09/24/2024 7:34 AM CDT FASTING:YES FASTING: YES us Chelly JARVIS LAB BLOOD ORDERABLES Final Result [email or web address] [address] [place] [address] * (ABNORMAL) CBC with auto differential (09/23/2024 9:06 AM CDT) [facility] WBC 9.7 3.8 - 10.8 Thousand/u L [facility]S bert An RBC, POC 3.60(L) 3.80 - [...] BLOOD ORDERABLES Final Result Performing Organization Address City/State/[facility] Co de Phone Number [facility] [address] [place] [address] * TSH (09/23/2024 9:06 AM CDT) Pathologist [facility] TSH 0.53 0.40 - 4.50 mIU/L [facility] Blood 09/23/2024 9:06 AM CDT 09/23/2024 9:07 AM CDT Narrative [facility] - 09/24/2024 1:56 AM CDT FASTING:YES FASTING: YES us Chelly JARVIS LAB BLOOD ORDERABLES Final Result Performing Organization Address [facility] Co de Phone Number [facility] [address] [place] [address] * (ABNORMAL) Hemoglobin A1c (09/23/2024 9:06 AM CDT) Hgb A1C 9.3(H) <5.7 % of total Hgb Meri MyMiniLifeDavid An Comment: For someone without known diabetes, [...] Organization Address [facility] Co de Phone Number [facility] [address] [place] [address] * (ABNORMAL) Lipid panel (09/23/2024 9:06 AM CDT) Cholesterol 190 <200 mg/dL [facility] bert An HDL 61 > OR = 50 mg/dL [facility] An Triglycerides 192(H) <150 mg/dL [facility] bert An LDL 100(H) mg/dL (calc) [facility] An Comment: Reference range: <100 Desirable range <100 mg/dL for primary prevention; <70 mg/dL for patients with CHD or diabetic patients with > or = 2 CHD risk factors. LDL-C is now calculated using the Sha calculation, which is a validated novel method providing better accuracy than the Friedewald equation in the estimation of LDL-C. Jorge HOOD et al. IESHA. 2013;310(19): 6455-2573 (http://education.[employer]/faq/PEO764) Chol/HDL ratio 3.1 <5.0 (calc) SkyRankMolina An Non-HDL, (LDL+VLDL) 129 <130 mg/dL (calc) Paixie.netDavid An Comment: For patients with diabetes plus 1 major ASCVD risk factor, treating to a non-HDL-C goal of <100 mg/dL (LDL-C of <70 mg/dL) is considered a therapeutic option. Blood 09/23/2024 9:06 AM CDT 09/23/2024 9:07 AM CDT Narrative [facility] - 09/24/2024 1:56 AM CDT FASTING:YES FASTING: YES Chelly JARVIS LAB BLOOD ORDERABLES Final Result [facility] [address] [place] [address] * (ABNORMAL) Comprehensive metabolic panel (09/23/2024 9:06 AM CDT) Glucose 332(H) 65 - 99 mg/dL Meri FixyaMolina An Comment: Fasting reference interval For someone without known diabetes, a glucose value >125 mg/dL indicates that they may have diabetes and this should be confirmed with a follow-up test. BUN 34(H) 7 - 25 mg/dL Meri FixyaMolina bert An Creatinine 1.18(H) 0.60 - 0.95 mg/dL SkyRankMolina bert An eGFR 45(L) > OR = 60 mL/min/1.7 3m2 SkyRankMolina bert An BUN/creat ratio 29(H) 6 - 22 (calc) Meri [facility]Molina An Sodium 138 135 - 146 mmol/L SkyRankMolina An Potassium, pl 4.0 3.5 - 5.3 mmol/L Meri FixyaS bert An Chloride 97(L) 98 - 110 mmol/L Meri FixyaMolina bert An CO2 33(H) 20 - 32 mmol/L SkyRankMolina bert An Calcium 9.5 8.6 - 10.4 mg/dL SkyRankMolina bert An Protein, sr 7.0 6.1 - [...] ALT (SGPT) 19 6 - 29 U/L [facility]S bert An Blood 09/23/2024 9:06 AM CDT 09/23/2024 9:07 AM CDT Narrative [facility] - 09/24/2024 1:56 AM CDT FASTING:YES FASTING: YES Chelly JARVIS LAB BLOOD ORDERABLES Final Result [facility] [address] [place] [address] * GA ARTHROCENTESIS ASPIR&/INJ MAJOR JT/BURSA W/O US (09/20/2024 [...] 10/15/18 1317 Age: 78 Sex: Female MR#: [id number] Loc: RADIOLOGY REPORT Order #[id number] Bone Density Bone Density Hip/Spine (STD) Signed EXAM DESCRIPTION: Bone Density Hip/Spine (STD) REASON FOR STUDY: 78 y/o year old postmenopausal white female with given history of screening. Mobile Ui Developer/Model: Inline.me A (S/N [id number]) CLINICAL INFORMATION: Current height: 61 inches Maximum [...] Regan Dsouza M.D. RB: JESSE Report ID: [id number] Reading Location: [id number] REPORT ELECTRONICALLY SIGNED IN OTHER VENDOR SYSTEM Resulting Agency Comment O Procedure Note Regan Dsouza MD - 10/15/2018 Patient Name: DANIKA MIRANDA Dr: Chelly Belcher PA-C, D.O.B: 1940 Exam Date: 10/15/18 1317 Age: 78 Sex: Female MR#: [id number] Loc: RADIOLOGY REPORT Order #[id number] Bone Density Bone Density Hip/Spine (STD) Signed EXAM DESCRIPTION: Bone Density Hip/Spine (STD) REASON FOR STUDY: 78 y/o year old postmenopausal white female withgiven history of screening. Mobile Ui Developer/Model: Inline.me A (S/N [id number]) CLINICAL INFORMATION: Current height: 61 inches Maximum [...] Regan Dsouza M.D. RB: JESSE Report ID: [id number] Reading Location: [id number] REPORT ELECTRONICALLY SIGNED IN OTHER VENDOR SYSTEM Chelly JARVIS IMG DXA PROCEDURES Final R esult from Last 3 Months or Most Recently Relevant to Health Maintenance Insurance MEDICARE [facility] MEDICARE BLUE TRADITIONAL OOS MEDICARE BLUE TRADITIONAL OOS Care Teams Bingo Floater Relationship Specialty Start Date End Date Chelly Belcher PA [address] [facility] [address] [place] [address] PCP - General Internal Medicine 10/31/18
--- OUTSIDE RECORDS SUMMARY | 2024-10-27 17:59 | XMS_ITS | Encounter Summary ---
Author Organization [facility] Address [address] [place] [address] Care Team Providers Care Panama Hat Blocker Name Role Phone Chelly Belcher Primary Care Provider +1- [phone] Encounter Details Date Type Department Care Team (Late st Contact Info) Description 09/24/2024 Results Follow-Up [facility] Family Medicine [address] [place] [address] Chelly Belcher PA [address] [place], [place] [id number] Social History Tobacco Use Types Packs/Day Years [...] on filedocumented in this encounter Care Teams Panama Hat Blocker Relationship Specialty Start Date End Date Chelly Belcher PA [address] [address] PCP - General Internal Medicine 10/31/18 documented as of this encounter
--- OUTSIDE RECORDS SUMMARY | 2024-10-27 17:59 | XMS_ITS | Continuity of Care Document ---
Author Organization [employer] [facility] Address [address] [place] [address] Phone Care Team Providers Care Corporate Scheduler Name Role Phone Porfirio Cortes Unavailable Unavailable [...] Providers Copied on Encounter Office/outpat ient Visit, [facility], [id number] [place] [address] [address], [place], [place], [id number], [place] tel:[phone] SEC [facility] No Information 0 6-201 0 Sebastian Monroy. [address] [facility] [address] , [address], [place], [place], [facility], [place]. tel:[phone] Office/outpat ient Visit, [facility], [address] [place] [address] [address], [place], [place], [id number], [place] tel:[phone] SEC [facility] No Information 0 3-201 0 Sebastian Monroy. [address] [place], [place] [address]ate Vanessa Alaom, [address], [place], [place], [facility], [place]. tel:[phone] Office/outpat ient Visit, [facility], [address] [place] [address] [address], [place], [place], [id number], [place] tel:[phone] [facility] No Information 2200 9 Sebastian Monroy. [address] [place], [place] [address]ate Vanessa Alamo, [address], [place], [place], [facility], [place]. tel:[phone] Office/outpat ient Visit, [facility], [id number] [place] [address] [address], [place], [place], [id number], [place] tel:[phone] [facility] No Information 2 5200 9 Sebastian Monroy. [facility] [address]essa [address], [address], [place], [place], [facility], [place]. tel:[phone] Referring Provider: Porfirio Arreola, Kristian Gonzalezate [address], [place], [address]. tel:[phone] [facility], [address] [place] [address] [address], [place], [place], [id number], [place] tel:[phone] [facility] No Information John-2 5-200 8 Sebastian Monroy. [facility] , [address], [place], [place], [facility], [place]. tel:[phone] [facility], [address] [place] [address] [address], [place], [place], [id number], [place] tel:[phone] [facility] No Information John-1 1-200 8 Doijennifer Monroy. [facility] [address], [place], [facility], [place]. tel:[phone] [facility], [address] [place] [address] [address], [place], [place], [id number], [place] tel:[phone] [facility] No Information John-1 0-200 8 Doijennifer Edbecky. [facility] [address], [place], [facility], [place]. tel:[phone] [facility], [address] [place] [address] [address], [place], [place], [id number], [place] tel:[phone] [facility] No Information November-2 1-200 8 Sebastian Monroy. [facility] [address], [place], [facility], [place]. tel:[phone] Referring Provider: Porfirio Arreola, [facility] [address], [place], [facility]. tel:[phone] [facility], [address] [place] [address] [address], [place], [place], [id number], [place] tel:[phone] [facility] No Information May-0 2-200 8 Sebastian Monroy. [facility] [address], [place], [facility], [place]. tel:[phone] [facility], [address], [place], [place], [id number], [place] tel:[phone] [facility]Former[facility] No Information May-0 1-200 8 Sebastian Monroy. [address] [place], [place] [address]ate Center , [address], [place], [place], [facility], . tel:[phone] [facility], [address], [place], [place], [id number], [place] tel:[phone] SEC [facility] No Information 2 200 8 Sebastian Monroy. [address] [place] [address], [place], [facility], . tel:[phone] Referring Provider: Porfirio Arreola, [address] [place], [place] [address]ate Center [address], [place], [place], [facility]. tel:[phone] Family History Family Member Type Diagnosis Age At Onset No Information Payers Payer name Insurance type Covered alliance party ID Authoriza tion(s) [place] [id number] [facility] [id number] Social History Type Description Quantity Date Captured [...]
--- OUTSIDE RECORDS SUMMARY | 2024-10-27 17:59 | XMS_ITS | Clinical Summary ---
Author Organization [facility] [address] [facility] Address [address] [place] [address] Care Team Providers Care Chief Arson Division Name Role Phone Chelly Belcher Primary Care Provider [phone] Allergies Active Allergy Reactions Criticality Noted Date [...] 1 tablet (75 mcg total) by mouth electrical power engineer before breakfast 05/06/20 24 025 Discontinued mirtazapine [...] follow-up already scheduled with neurosurgeon Dr. Jackson [facility] this week. She is actually getting good [...] 06/11/2023 Assessment & Plan (06/11/2023 11:21 PM WINDOWS SYSTEMS ADMINISTRATOR): Flu vaccine updated in the office today [...] eat. Assessment & Plan (06/11/2023 11:19 PM WINDOWS SYSTEMS ADMINISTRATOR): Patient with Alzheimer's. She unable to tolerate [...] dementia Assessment & Plan (05/21/2022 1:40 PM WINDOWS SYSTEMS ADMINISTRATOR): This is a significant, separately identifiable problem [...] (11/07/2021): Added automatically from request for surgery [id number] Gastric ulcer 11/07/2021 Overview (11/07/2021): Added automatically from request for surgery [id number] Mouth sores 06/16/2021 Assessment & Plan (06/16/2021 10:07 PM WINDOWS SYSTEMS ADMINISTRATOR): Mouth sores of unknown etiology but they [...] GI Assessment & Plan (05/21/2022 1:38 PM WINDOWS SYSTEMS ADMINISTRATOR): Patient's states the seem to be a little bit better. Continue per GI. Assessment & Plan (12/02/2021 11:10 PM CDT): Continue perDr. Barzabarhi Assessment & Plan (05/11/2021 8:22 PM CDT): See dyspepsia and bad taste in mouth. Other fatigue 11/18/2020 Assessment & Plan (06/11/2023 11:21 PM WINDOWS SYSTEMS ADMINISTRATOR): Probably multifactorial. Check labs and followup to [...] office. Assessment & Plan (06/10/2020 2:16 PM WINDOWS SYSTEMS ADMINISTRATOR): Check xray due to fall in the bathroom. Pt is poor historian. Flu vaccine need 06/10/2020 Assessment & Plan (05/11/2021 8:22 PM CDT): Vaccine updated in office today Assessment & Plan (06/10/2020 2:30 PM WINDOWS SYSTEMS ADMINISTRATOR): Updated in the office Nonrheumatic aortic valve stenosis 06/10/2020 Overview (06/10/2020): December 2019 ECHO Assessment & Plan (11/18/2022 9:53 PM CDT): Continue per cardio. Murmur sounds the same today Assessment & Plan (06/10/2020 2:28 PM WINDOWS SYSTEMS ADMINISTRATOR): Will refer to cardio for further evaluation [...] make a big difference. Will refer to [facility] GI for further evaluation and recommendations. She prefers to be seen in the [facility] location but her whole road. Assessment & Plan (06/10/2020 2:29 PM WINDOWS SYSTEMS ADMINISTRATOR): Continue per Dr. Hood. May restart PPI [...] make a big difference. Will refer to [facility] GI for further evaluation and recommendations. She prefers to be seen in the [facility] location but her whole road. Assessment [...] labs. Assessment & Plan (06/11/2023 11:19 PM WINDOWS SYSTEMS ADMINISTRATOR): Avoid nephrotoxic drugs including NSAIDs. Monitor labs. Assessment & Plan (11/18/2022 9:53 PM CDT): Avoid nephrotoxic drugs including NSAIDs. Monitor labs. Assessment & Plan (05/21/2022 1:37 PM WINDOWS SYSTEMS ADMINISTRATOR): Avoid nephrotoxic drugs including NSAIDs. Monitor labs. [...] ramipril Assessment & Plan (06/11/2023 11:21 PM WINDOWS SYSTEMS ADMINISTRATOR): Bp is stable/in acceptable range for any co-morbidities. Encouraged to limit sodium intake and exercise for weight control. Continue bisoprolol hydrochlorothiazide and ramipril Assessment & Plan (11/18/2022 9:50 PM CDT): Bp is stable/in acceptable range for any co-morbidities. Encouraged to limit sodium intake and exercise for weight control. Continue bisoprolol hydrochlorothiazide and ramipril Assessment & Plan (05/21/2022 1:36 PM WINDOWS SYSTEMS ADMINISTRATOR): Bp is stable/in acceptable range for any co-morbidities. Encouraged to limit sodium intake and exercise for weight control. Continue bisoprolol hydrochlorothiazide and ramipril Assessment & Plan (12/02/2021 11:08 PM CDT): Bp is stable/in acceptable range for any co-morbidities. Encouraged to limit sodium intake and exercise for weight control. Continue bisoprolol hydrochlorothiazide ramipril and amlodipine Assessment & Plan (06/16/2021 10:07 PM WINDOWS SYSTEMS ADMINISTRATOR): Bp is stable/in acceptable range for any [...] ramipril Assessment & Plan (06/10/2020 2:31 PM WINDOWS SYSTEMS ADMINISTRATOR): Stressed importance of continued A1c control to minimize the salvage determiner effects of diabetes. Bring accuchecks to office [...] of continued A1c control to minimize the senior living effects of diabetes. Bring accuchecks to office [...] controlled. Assessment & Plan (06/11/2023 11:20 PM WINDOWS SYSTEMS ADMINISTRATOR): Stressed importance of continued A1c control to minimize the senior living effects of diabetes. Bring accuchecks to office [...] the only 1 she can tolerate. Discussed Bowles drugs Assessment & Plan (05/21/2022 1:36 PM WINDOWS SYSTEMS ADMINISTRATOR): Encouraged patient to follow low fat/low chol [...] statin Assessment & Plan (06/10/2020 2:31 PM WINDOWS SYSTEMS ADMINISTRATOR): Encouraged patient to follow fat/low chol diet [...] of continued A1c control to minimize the salvage determiner effects of diabetes. Bring accuchecks to office [...] of continued A1c control to minimize the senior living effects of diabetes. Bring accuchecks to office [...] medication. Assessment & Plan (06/11/2023 11:20 PM WINDOWS SYSTEMS ADMINISTRATOR): Stressed importance of continued A1c control to minimize the senior living effects of diabetes. Bring accuchecks to office [...] pressure Assessment & Plan (05/21/2022 1:36 PM WINDOWS SYSTEMS ADMINISTRATOR): Bp is stable/in acceptable range for any [...] of continued A1c control to minimize the salvage determiner effects of diabetes. Bring accuchecks to office [...] of continued A1c control to minimize the senior living effects of diabetes. Bring accuchecks to office [...] to follow with the GI down at [facility]. Currently managed without additional medications as the Reglan did not really help. Assessment & Plan (11/18/2022 9:51 PM CDT): GI symptoms have improved. Continue per GI. Assessment & Plan (05/21/2022 1:41 PM WINDOWS SYSTEMS ADMINISTRATOR): No change. Continue per GI. Continue to [...] of continued A1c control to minimize the salvage determiner effects of diabetes. Bring accuchecks to office [...] maintain. Assessment & Plan (05/25/2023 11:33 AM WINDOWS SYSTEMS ADMINISTRATOR): Weight/BMI is in healthy range. Continue healthy lifestyle to maintain. BMI 25.0-25.9,adult 11/18/2022 05/25/20 23 Assessment & Plan (11/18/2022 11:01 AM CDT): Weight/BMI is in healthy range. Continue healthy lifestyle to maintain. Need for vaccination 05/21/2022 023 Assessment & Plan (05/21/2022 1:38 PM WINDOWS SYSTEMS ADMINISTRATOR): Flu vaccine updated in the office today Burning with urination 01/30/202205/21 Assessment & Plan (01/30/2022 4:18 PM CDT): Pt presents with dysuria. Urine dip completed. Send urine culture. Antibiotic to pharmacy. Reviewed bladder care. BMI 26.0-26.9,adult 11/18/2021 11/19/19 23 Assessment & Plan (05/21/2022 1:38 PM WINDOWS SYSTEMS ADMINISTRATOR): Weight/BMI is in healthy range. Continue healthy lifestyle to maintain. Assessment & Plan (11/18/2021 3:19 PM CDT): Weight/BMI is in healthy range. Continue healthy lifestyle to maintain. Obesity (BMI 30-39.9) 05/27/20212021 Assessment & Plan (05/27/2021 10:48 AM WINDOWS SYSTEMS ADMINISTRATOR): Obesity is unchanged. Discussed the patient's BMI. The BMI is above average. BMI management plan is completed. BMI Follow-up includes: nutrition counseling, exercise counseling and education provided. BMI 32.0-32.9,adult 05/27/2021 11/19/19 22 Assessment & Plan (05/27/2021 10:48 AM WINDOWS SYSTEMS ADMINISTRATOR): Obesity is unchanged. Discussed the patient's BMI. [...] 04/17/2024 Assessment & Plan (06/11/2023 11:20 PM WINDOWS SYSTEMS ADMINISTRATOR): Encouraged healthy lifestyle, good nutrition and exercise. Encouraged Calcium and Vitamin D and weight bearing exercise for bone health. Reviewed immunizations. Reviewed age appropirate screenings. Medicare Wellness Documentation is completed within the chart Assessment & Plan (05/21/2022 1:38 PM WINDOWS SYSTEMS ADMINISTRATOR): Encouraged healthy lifestyle, good nutrition and exercise. [...] 12/28/201904/12 Assessment & Plan (06/11/2023 11:21 PM WINDOWS SYSTEMS ADMINISTRATOR): Continue levothyroxine. Monitor labs. Assessment & Plan (11/18/2022 9:53 PM CDT): Continue levothyroxine. Monitor labs. Assessment & Plan (05/21/2022 1:37 PM WINDOWS SYSTEMS ADMINISTRATOR): Continue levothyroxine 75 mcg. Continue to monitor labs. Assessment & Plan (12/02/2021 11:10 PM CDT): Continue levothyroxine. Monitor labs. Assessment & Plan (11/18/2020 6:55 PM CDT): Continue levothyroxine. Monitor labs. Assessment & Plan (06/10/2020 2:29 PM WINDOWS SYSTEMS ADMINISTRATOR): Continue levothyroxine Assessment & Plan (01/08/2020 2:38 [...] 21 Assessment & Plan (06/10/2020 2:14 PM WINDOWS SYSTEMS ADMINISTRATOR): Obesity is unchanged. Discussed the patient's BMI. [...] 04/17/2024 Assessment & Plan (06/11/2023 11:20 PM WINDOWS SYSTEMS ADMINISTRATOR): Stressed importance of continued A1c control to minimize the salvage determiner effects of diabetes. Bring accuchecks to office [...] of continued A1c control to minimize the senior living effects of diabetes. Bring accuchecks to office [...] monitor Assessment & Plan (05/21/2022 1:42 PM WINDOWS SYSTEMS ADMINISTRATOR): This is a significant, separately identifiable problem that was evaluated and managed on the same day as the wellness exam Stressed importance of continued A1c control to minimize the salvage determiner effects of diabetes. Bring accuchecks to office [...] of continued A1c control to minimize the salvage determiner effects of diabetes. Bring accuchecks to office [...] of continued A1c control to minimize the senior living effects of diabetes. Bring accuchecks to office when instructed to do so. Check A1c about every 3-6 months. Take medication as prescribed. Get annual eye exam. Encouraged PRETTY/Statin if able to tolerate. Encouraged weight control and encouraged diabetic diet and exercise. Continue metformin Assessment & Plan (01/08/2020 2:36 PM CDT): Stressed importance of continued A1c control to minimize the senior living effects of diabetes. Bring accuchecks to office [...] of continued A1c control to minimize the salvage determiner effects of diabetes. Bring accuchecks to office [...] progression. Assessment & Plan (06/10/2020 2:26 PM WINDOWS SYSTEMS ADMINISTRATOR): Sxs are progressing. She did not tolerate [...] Description 10/05/2024 1:30 PM CDT Office Visit [facility] [address] [place] [address] Chelly Belcher PA Medicare annual wellness [...] disease (HCC); BMI 27.0-27.9,adult 09/24/2024 Results Follow-Up [address] [place] [address] Chelly Belcher PA 09/20/2024 10:45 AM CDT Office Visit [facility] [address] [place] [address] [address] [place] [address] Avelino Sky MD Rotator cuff tear arthropathy of right shoulder (Primary Dx); Chronic left shoulder pain 09/15/2024 Orders Only [address] [place] [address] Chelly Belcher PA Hypertension associated with diabetes (HCC) (Primary Dx); 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); 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); Vitamin D deficiency; Other fatigue; Stage 3a chronic kidney disease (HCC) 08/15/[address] [place] [address] Chelly Belcher PA from Last [...] CDT Respiratory Rate 16 05/21/2022 11:15 AM WINDOWS SYSTEMS ADMINISTRATOR Oxygen Saturation 95% 10/05/2024 1:09 PM CDT Inhaled Oxygen Concentration - - Weight 69.2 kg (152 lb 8 oz) 06/27/2024 11:43 AM WINDOWS SYSTEMS ADMINISTRATOR Height 157.5 cm (5' 2 ) 10/05/2024 1:09 PM CDT Body Mass Index 27.89 06/27/2024 11:43 AM WINDOWS SYSTEMS ADMINISTRATOR Plan of Treatment Health Maintenance Due Date [...] (HCC) Stage 3a chronic kidney disease (HCC) FL ARTHROCENTESIS ASPIR&/INJ MAJOR JT/BURSA W/O US Routine [...] LAB URINE ORDERABLES Final Result [facility] [address] [place] [address] * Vitamin D 25 hydroxy (09/23/2024 9:10 AM CDT) [facility] Vitamin D 25-OH 34 30 - 100 ng/mL [facility] Comment: Vitamin D Status 25-OH Vitamin D: Deficiency: <20 ng/mL Insufficiency: 20 - 29 ng/mL Optimal: > or = 30 ng/mL For 25-OH Vitamin D testing on patients on D2-supplementation and patients for whom quantitation of D2 and D3 fractions is required, the Quest[facility]ure[facility](TM) 25-OH VIT D, (D2,D3), LC/MS/MS is recommended: order code 99981 (patients >2yrs). See Note 1 Note 1 For additional information, please refer to http://education.HipWay/faq/RCN215 (This link is being provided for informational/ educational purposes only.) Blood 09/23/2024 9:10 AM CDT 09/23/2024 9:10 AM CDT Narrative [facility] - 09/24/2024 7:34 AM CDT FASTING:YES FASTING: YES Chelly JARVIS LAB BLOOD ORDERABLES Final Result [facility] [address] [place] [address] * (ABNORMAL) CBC with auto differential (09/23/2024 9:06 AM CDT) [facility] WBC 9.7 3.8 - 10.8 Thousand/u L [...] ORDERABLES Final Result [facility] [address] [place] [address] * TSH (09/23/2024 9:06 AM CDT) Pathologist [facility] TSH 0.53 0.40 - 4.50 mIU/L [facility] Blood 09/23/2024 9:06 AM CDT 09/23/2024 9:07 AM CDT Narrative [facility] - 09/24/2024 1:56 AM CDT FASTING:YES FASTING: YES Chelly JARVIS LAB BLOOD ORDERABLES Final Result Performing Organization Address [facility] Co de Phone Number [facility] [address] [place] [address] * (ABNORMAL) Hemoglobin A1c (09/23/2024 9:06 AM CDT) Hgb A1C 9.3(H) <5.7 % of total Hgb [facility] Comment: For someone without known diabetes, [...] BLOOD ORDERABLES Final Result Performing Organization Address [facility] de Phone Number [facility] [address] [place] [address] * (ABNORMAL) Lipid panel (09/23/2024 9:06 AM CDT) Cholesterol 190 <200 mg/dL [facility] HDL 61 > OR = 50 mg/dL [facility] Triglycerides 192(H) <150 mg/dL [facility] LDL 100(H) mg/dL (calc) [facility] Comment: Reference range: <100 Desirable range <100 mg/dL for primary prevention; <70 mg/dL for patients with CHD or diabetic patients with > or = 2 CHD risk factors. LDL-C is now calculated using the Jorge-Stahl calculation, which is a validated novel method providing better accuracy than the Friedewald equation in the estimation of LDL-C. Jorge SS et al. IESHA. 2013;310(19): 0168-8025 (http://education.HipWay/faq/VUV090) Chol/HDL ratio 3.1 <5.0 (calc) [facility] Non-HDL, (LDL+VLDL) 129 <130 mg/dL (calc) [facility] Comment: For patients with diabetes plus 1 major ASCVD risk factor, treating to a non-HDL-C goal of <100 mg/dL (LDL-C of <70 mg/dL) is considered a therapeutic option. Blood 09/23/2024 9:06 AM CDT 09/23/2024 9:07 AM CDT Narrative [facility] - 09/24/2024 1:56 AM CDT FASTING:YES FASTING: YES Chelly JARVIS LAB BLOOD ORDERABLES Final Result [facility] [address] [place] [address] * (ABNORMAL) Comprehensive metabolic panel (09/23/2024 9:06 AM CDT) Glucose 332(H) 65 - 99 mg/dL [facility] Comment: Fasting reference interval For someone without known diabetes, a glucose value >125 mg/dL indicates that they may have diabetes and this should be confirmed with a follow-up test. BUN 34(H) 7 - 25 mg/dL [facility] Creatinine 1.18(H) 0.60 - 0.95 mg/dL [facility] eGFR 45(L) > OR = 60 mL/min/1.7 3m2 [facility] BUN/creat ratio 29(H) 6 - 22 (calc) [facility] Sodium 138 135 - 146 mmol/L [facility] Potassium, pl 4.0 3.5 - 5.3 mmol/L [facility] Chloride 97(L) 98 - 110 mmol/L [facility] CO2 33(H) 20 - 32 mmol/L [facility] Calcium 9.5 8.6 - 10.4 mg/dL [facility] Protein, sr 7.0 6.1 - 8.1 g/dL [facility] Albumin 4.0 3.6 - 5.1 g/dL [facility] GLOBULIN 3.0 1.9 - 3.7 g/dL (calc) [facility] Alb/glob ratio 1.3 1.0 - 2.5 (calc) [facility] Bilirubin, total 0.6 0.2 - 1.2 mg/dL [facility] Alk phos 119 37 - 153 U/L [facility] AST 20 10 - 35 U/L [facility] ALT (SGPT) 19 6 - 29 U/L [facility] Blood 09/23/2024 9:06 AM CDT 09/23/2024 9:07 AM CDT Narrative [facility] - 09/24/2024 1:56 AM CDT FASTING:YES FASTING: YES Chelly JARVIS LAB BLOOD ORDERABLES Final Result [facility] [address] [place] [address] * [place] ARTHROCENTESIS ASPIR&/INJ MAJOR JT/BURSA W/O US (09/20/2024 [...] Patient Name: DANIKA MIRANDA Ordering Dr: Chelly Blecher PA-C, D.O.B: 1940 Exam Date: 10/15/181316 Age: 78 Sex: Female MR#: [id number] Loc: RADIOLOGY REPORT Order #[id number] Bone Density Bone Density Hip/Spine (STD) Signed EXAM DESCRIPTION: Bone Density Hip/Spine (STD) REASON FOR STUDY: 78 y/o year old postmenopausal white female with given history of screening. Tool Inspector/Model: Taxi 24/7 A (S/N [id number]) CLINICAL INFORMATION: Current height: 61 inches Maximum [...] Regan Dsouza M.D. RB: JESSE Report ID: [id number] [place] Location: [place] [address] REPORT ELECTRONICALLY SIGNED IN OTHER VENDOR SYSTEM Resulting Agency Comment O Procedure Note Regan Dsouza MD - 10/15/2018 Patient Name: JUVE MIRANDASanjay Mcguire Dr: Chelly Belcher PA-C, D.O.B: 1940 Exam Date: 10/15/181316 Age: 78 Sex: Female MR#: [id number] Loc: RADIOLOGY REPORT Order #[id number] Bone Density Bone Density Hip/Spine (STD) Signed EXAM DESCRIPTION: Bone Density Hip/Spine (STD) REASON FOR STUDY: 78 y/o year old postmenopausal white female withgiven history of screening. Tool Inspector/Model: Hologic Horizon A (S/N [id number]) CLINICAL INFORMATION: Current height: 61 inches Maximum [...] 10/15/2018 1:42 PM - Electronically signed by Regantiat Dsouza M.D. RB: JESSE Report ID: [id number] [place] Location: [id number] REPORT ELECTRONICALLY SIGNED IN OTHER VENDOR SYSTEM Chelly JARVIS IMG DXA PROCEDURES Final R esult from Last 3 Months or Most Recently Relevant to Health Maintenance Insurance MEDICARE [facility] MEDICARE BLUE TRADITIONAL OOS MEDICARE BLUE TRADITIONAL OOS Care Teams Chief Arson Division Relationship Specialty Start Date End Date Chelly Belcher PA [address] [facility] [address] [place] [address] PCP - General Internal Medicine 10/31/18
[2024-10-27 18:05] LABS: Add Urine Microscopic? YES; Appearance Urine Clear (Clear); Bacteria Urine Rare /hpf; Bilirubin Urine Negative (Negative); Blood Urine Negative (Negative); Budding Yeast Urine Present /hpf; Color Urine Yellow (Yellow); Glucose Urine UA 3+ mg/dL (Negative); Ketones Urine 1+ mg/dL (Negative); Leukocyte Esterase Ur Negative LEU/UL (Negative); Need Manual Microscopic Reviewed; Nitrate Urine Negative (Negative); Non Pathogenic Casts 0-2; Protein Urine 1+ mg/dL (Negative); RBC Urine 0-2 /hpf (0-2); Squamous Epithelial Cell Urine None Seen /hpf (Few); Urobilinogen Urine 0.2 mg/dL (<2.0)
[2024-10-27 19:05] LABS: Beta-Hydroxybutyrate/Acetoacetate 1.25 mmol/L (0.02-0.27)
[2024-10-27 19:17] LABS: Alanine Aminotransferase 17 U/L (6-35); Albumin Level 3.9 g/dL (3.5-5.1); Alkaline Phosphatase 171 U/L (38-126); Anion Gap 12 mmol/L (4-12); Aspartate Amino Transferase 23 U/L (14-36); Bilirubin,Total 0.6 mg/dL (0.2-1.3); Blood Urea Nitrogen 56 mg/dL (7-17); Calcium 9.5 mg/dL (8.4-10.2); Carbon Dioxide 30 mmol/L (22-30); Chloride 92 mmol/L (98-107); Estimated CRCL calculation 24 ml/min; Estimated Glomerular Filt Rate 37; Glucose 738 mg/dL (65-110); Magnesium 2.9 mg/dL (1.6-2.3); Potassium 4.6 mmol/L (3.4-5.0); Sodium 134 mmol/L (137-145)
[2024-10-27 19:31] LABS: Thyroid Stimulating Hormone 0.231 uIU/mL (0.465-4.680)
[2024-10-27 19:31] LABS: Reflex Lactic Acid Yes or No Add Lactic
[2024-10-27] MEDS: SODIUM CHLORIDE 0.9% IV 1,000 ML 999 ML IV CONT (19:46)
[2024-10-27] MEDS: INSULIN HUMAN REGULAR (*BKC) 100 UNITS/ML IV PUSH (19:47)
[2024-10-27] MEDS: SODIUM CHLORIDE 0.9% IV 500 ML 999 ML IV CONT (19:47)
[2024-10-27 20:21] LABS: Fractional Inspired Oxygen 21 %; HCO3 VBG 28.3 mEq/l (24.0-30.0)
[2024-10-27 20:24] VITALS: BP 144/107; PULSE 69; RESP 18; O2SAT 96
[2024-10-27 20:24] LABS: PO2 VBG < 27.0 mmHg (35.0-45.0); pH VBG 7.416 (7.300-7.400)
[2024-10-27 20:25] VITALS: O2SAT 100
[2024-10-27 20:55] LABS: Glucose Point of Care > 500 mg/dl (65-105)
[2024-10-27] MEDS: INSULIN HUMAN REGULAR (*BKC) 100 UNITS/ML 7.5 UNITS IV PUSH (21:35)
[2024-10-27 21:44] LABS: Lactic Acid 1.5 mmol/L (0.7-2.0)
[2024-10-27 22:08] LABS: NT Pro B Type Natriuretic Pept 1360 pg/mL (19.9-100)
[2024-10-27 23:22] VITALS: BP 138/98; PULSE 69; RESP 14; O2SAT 98
--- NOTE | 2024-10-27 23:23 | PC.NURSE ---
This RN assumed care of pt @[id number]
[2024-10-27] MEDS: SODIUM CHLORIDE 0.9% IV 1,000 ML 125 ML IV CONT (23:29)
[2024-10-27] MEDS: SODIUM CHLORIDE 0.9% IV 1,000 ML 500 ML IV CONT (23:29)
[2024-10-27 23:47] LABS: Anion Gap 10 mmol/L (4-12); Blood Urea Nitrogen 48 mg/dL (7-17); Calcium 8.7 mg/dL (8.4-10.2); Carbon Dioxide 28 mmol/L (22-30); Chloride 100 mmol/L (98-107); Estimated CRCL calculation 27 ml/min; Estimated Glomerular Filt Rate 43; Sodium 138 mmol/L (137-145)
[2024-10-27 23:51] LABS: Glucose 581 mg/dL (65-110)
[2024-10-28] VITALS (7 sets, daily range): BP systolic 101–149; BP diastolic 45–90; PULSE 56–71; RESP 11–15; TEMP 36.1–37.5; O2SAT 97–100; BMI 28.3
[2024-10-28] MEDS: INSULIN HUMAN REGULAR (*BKC) 100 UNITS in SODIUM CHLORIDE 0.9% IV 99 ML 6.5 UNITS IV CONT (01:30)
[2024-10-28 05:05] LABS: Glucose Point of Care 454 mg/dl (65-105)
[2024-10-28 05:05] LABS: Glucose Point of Care 274 mg/dl (65-105)
[2024-10-28 05:05] LABS: Glucose Point of Care 410 mg/dl (65-105)
[2024-10-28 05:06] LABS: Glucose Point of Care 197 mg/dl (65-105)
--- NOTE | 2024-10-28 05:41 | ADMGEN ---
This patient, Mayuri Fernando, was admitted to Intensive Care Unit-8. Patient/family oriented to hospital policies and general routines including ID bracelet, bed and alarms, visiting hours, pain management, procedures, bathroom and other care routines, personal items, smoking policy, room service/diet, and visiting hours. Information on how to activate the Rapid Response Team has been discussed. Patient/Family are encouraged to report perceived risks to care and to ask questions if they do not understand what they are told or what they should do.
[2024-10-28 06:08] LABS: Glucose Point of Care 112 mg/dl (65-105)
[2024-10-28 07:10] LABS: Glucose Point of Care 83 mg/dl (65-105)
[2024-10-28 07:46] LABS: MRSA (PCR) NOT DETECTED (NOT DETECTE)
[2024-10-28 08:14] LABS: Basophils Percent Auto 0.4 % (0.2-1.2); Eosinophils Absolute Auto 0.4 K/mm3 (0-0.3); Eosinophils Percent Auto 3.9 % (0-4.4); Hematocrit 38.8 % (37.0-47.0); Hemoglobin 11.8 g/dL (12.0-15.0); Immature Granulocyte Absolute 0.07 K/mm3 (0.00-0.031); Immature Granulocyte Percent A 0.7 % (0-0.5); Lymphocytes Absolute Auto 2.06 K/mm3 (0.9-3.2); Lymphocytes Percent Auto 19.7 % (18.3-44.2); Mean Corpuscular HGB Conc 30.4 g/dl (32-36); Mean Corpuscular Hemoglobin 30.3 pg (26-34); Mean Corpuscular Volume 99.7 fl (80-100); Mean Platelet Volume 10.8 fl (7.4-10.4); Monocytes Absolute Auto 0.9 K/mm3 (0.1-0.6); Monocytes Percent Auto 8.3 % (2.6-8.5); Platelet Count Result 224 k/mm3 (150-375); Red Blood Count 3.89 M/mm3 (4.2-5.4); Red Cell Distribution Width 13.1 % (11.5-14.5); White Blood Count 10.4 K/mm3 (4.5-10.0)
[2024-10-28 08:22] LABS: Alanine Aminotransferase 17 U/L (6-35); Albumin Level 3.3 g/dL (3.5-5.1); Alkaline Phosphatase 133 U/L (38-126); Anion Gap 11 mmol/L (4-12); Aspartate Amino Transferase 21 U/L (14-36); Bilirubin,Total 0.5 mg/dL (0.2-1.3); Blood Urea Nitrogen 40 mg/dL (7-17); Calcium 8.6 mg/dL (8.4-10.2); Carbon Dioxide 22 mmol/L (22-30); Chloride 110 mmol/L (98-107); Estimated CRCL calculation 32 ml/min; Estimated Glomerular Filt Rate 53; Glucose 110 mg/dL (65-110); Potassium 3.5 mmol/L (3.4-5.0); Sodium 143 mmol/L (137-145)
[2024-10-28 08:23] LABS: Magnesium 2.6 mg/dL (1.6-2.3); Phosphorus 1.9 mg/dL (2.5-4.5)
[2024-10-28] MEDS: LEVOTHYROXINE SODIUM 75 MCG TABLET PO (08:24)
[2024-10-28] MEDS: INSULIN GLARGINE (*BKC) 100 UNITS/ML 10 UNITS SUB-Q (08:27)
[2024-10-28 08:36] LABS: Lactic Acid Reflex 2.9 mmol/L (0.7-2.0)
--- NOTE | 2024-10-28 09:12 | P.CONIN_ITS ---
Assessment and Plan Assessment and plan (1) Hyperosmolar non-ketotic state due to type 2 diabetes mellitus: Code(s): E11.00 - Type 2 diabetes mellitus with hyperosmolarity without nonketotic hyperglycemic-hyperosmolar coma ([facility]) Status: Acute Assessment and Plan: 10/27: Patient presented the ED with hyperglycemia at home, confusion, generalized weakness -in the ED patient was-blood sugar of 738, no anion gap metabolic acidosis -received 3 L IV fluids and started on insulin infusion per DKA protocol -this morning patient blood sugars were in the 80s, insulin infusion was held, patient was transition to long-acting insulin Lantus and sliding scale insulin -will start diabetic diet -check hemoglobin A1c -family living educator and dietitian to be consulted (2) Hypertension: Code(s): I10 - Essential (primary) hypertension Status: Acute Assessment and Plan: Will restart home (3) Diabetes: Code(s): E11.9 - Type 2 diabetes mellitus without complications Status: Acute Assessment and Plan: Check hemoglobin A1c -according the medical records patient has stopped taking her metformin about a year back (4) Hypothyroidism: Code(s): E03.9 - Hypothyroidism, unspecified Status: Acute Assessment and Plan: Continue levothyroxine (5) Dementia: Qualifiers: Dementia behavioral or psychological symptom: unspecified whether behavioral, psychotic, or mood disturbance or anxiety Dementia severity: u nspecified severity Dementia type: unspecified type Qualified Code(s): F03.90 - Unspecified dementia, unspecified severity, without behavioral disturbance, psychotic disturbance, mood disturbance, and anxiety Code(s): F03.90 - Unspecified dementia, unspecified severity, without behavioral disturbance, psychotic disturbance, mood disturbance, and anxiety Status: Acute Assessment and Plan: Continue mirtazapine Plan DVT prophylaxis: Lovenox SQ Stress ulcer prophylaxis: Not indicated Nutrition: Diabetic diet Code Status: Full code Critical Care Time Spent: 48 minutes Due to a high probability of clinically significant, life threatening deterioration, the patient required my highest level of preparedness to intervene emergently and I personally spent this critical care time directly and personally managing the patient. This critical care time included obtaining a history; examining the patient; pulse oximetry; ordering and review of studies; arranging urgent treatment with development of a management plan; evaluation of patient's response to treatment; frequent reassessment; and discussions with other providers. It was exclusive of separately billable procedures and treating other patients and teaching time. Please see Assessment and Plan section and the rest of the note for further information on patient assessment and treatment This dictation may have been done utilizing a voice recognition system. Attempts have been made to correct errors. However, there may be uncorrected grammatical, spelling, and recognitions errors present. [employer] Consult Note Consult date: 10/28/24 Reason for consult: Hyperosmolar hyperkeratotic state, hyperglycemia, generalized weak, confusion HPI: Mayuri Fernando is a 84 year old female with past medical history of central cord syndrome, arthritis, gastric ulcer, GERD, diabetes, essential hypertension, hyperlipidemia, hypothyroidism dementia presented the ED on 10/27/2024 with complaints of elevated blood sugars, confusion, generalized weakness which has been ongoing for 2-3 weeks per patient's . Patient is unable to provide any meaningful history, more family members are present at this time, all history has been obtained from medical records. In the ER patient was found to have blood sugars of 738, CO2 30, anion gap 12, BUN 56, creatinine 1.37, initial lactic acid was 2.4, repeat lactic was 1.5 after fluids. Hemoglobin WBC 11.8, hemoglobin 13.3, platelets 277, INR of 1.1. LFTs within normal limits, beta hydroxybutyrate was 1.25, TSH was 0.23. UA showed 1+ protein, 3+ glucose and 1+ ketones, no leukocyte esterase or urine nitrates. Chest x-ray with no acute cardiopulmonary pathology. Head CT with no acute intracranial findings. Patient received 3 L of IV fluids, was started on insulin infusion. Patient transferred to the ICU for further management Patient seen and examined this morning in the ICU, is awake, alert, able to answer questions. Oriented to person only, which is her baseline. Patient denies any chest pain, shortness of breath, abdominal pain, nausea, vomiting at this time. Hemodynamically stable, adequate urine output, afebrile Review of Systems 2 Review of Systems: All systems reviewed & are unremarkable except as noted in HPI and below PMFSH Past Medical History Medical History Central cord syndrome Arthritis Ulcer Gastric ulcer GERD (gastroesophageal reflux disease) Diabetes Hypertension Hyperlipidemia Dementia Surgical History Surgical History History of knee replacement Family History Family History (Updated 10/28/24 @ 05:43 by Ange Apodaca RN) Father Myocardial infarct Mother Cancer Social History Social History Smoking status: Never smoker Alcohol intake: never Substance use: never Substance use type: does not use Do You Feel Safe in your Home?: Yes Lack of Transportation: No Lack of Food: Never True Current Housing: I Have Housing Concerned About Future Housing: No Difficulty Paying Gas/Electric Bills: No Difficulty Paying for Meds: No Currently Unemployed: No Education: High School Diploma/GED Difficulty w/ Childcare or Family Care: No Living arrangements: with family Additional living arrangements comments: - /- Occupation/Education: retired Spiritual care concerns: No Meds Home Medications and Allergies Home Medications ?Medication ?Instructions ?Recorded ?Confirmed ?Type bisoprolol 5 1 tablet PO QAM 01/12/20 10/28/24 History mg-hydrochlorothiazide 6.25 mg tablet levothyroxine 75 mcg tablet 75 mcg PO QAM 01/12/20 10/28/24 History (Synthroid) amlodipine 2.5 mg tablet 2.5 mg PO DAILY 11/26/23 10/28/24 History mirtazapine 7.5 mg tablet 15 mg PO HS 11/26/23 10/28/24 History gabapentin 400 mg capsule 400 mg PO TID #90 caps 01/21/24 10/28/24 Rx Allergies Allergy/AdvReac Type Severity Reaction Status Date / Time metronidazole Allergy Severe Unknown Verified 10/28/24 05:44 codeine Allergy Intermediate HYPERACTIVI Verified 10/28/24 05:44 TY Vital Signs Vital Signs - 24 hr 10/27/24 16:46 10/27/24 20:24 10/27/24 20:25 Temperature 98.4 F Pulse Rate 78 69 Respiratory Rate 17 18 Blood Pressure 127/59 L 144/107 H Pulse Oximetry 96 96 100 Oxygen Delivery Room Air Nasal Cannula Oxygen Flow Rate 1 10/27/24 23:22 10/28/24 02:00 10/28/24 04:00 Temperature Pulse Rate 69 70 61 Respiratory Rate 14 14 Blood Pressure 138/98 H 149/45 H Pulse Oximetry 98 97 Oxygen Delivery Oxygen Flow Rate 10/28/24 04:00 10/28/24 06:00 10/28/24 06:00 Temperature 98.2 F Pulse Rate 59 L 56 L 56 L Respiratory Rate 13 13 Blood Pressure 107/90 118/54 L Pulse Oximetry 100 100 Oxygen Delivery Oxygen Flow Rate 10/28/24 06:24 10/28/24 08:00 10/28/24 08:00 Temperature 97.0 F L Pulse Rate 65 64 Respiratory Rate 11 L Blood Pressure 128/48 L Pulse Oximetry 100 Oxygen Delivery Room Air Oxygen Flow Rate Exam 2 Narrative: General: Pleasant patient in no acute distress HEENT:? Pupils equal and reactive, sclerae ischemia, moist oral mucous Neck:? Supple Respiratory:? Clear to auscultation bilaterally Cardiac:? S1-S2 normal, regular rate and rhythm Abdomen:? Soft, nontender, nondistended, normoactive bowel sounds Extremities:? No edema, palpable pedal pulse Neuro:? Patient is awake, alert, oriented to self which is her baseline, follows simple commands Skin:? No skin lesions no Psych:? Cognitive impairment noted Results Labs 10/28/24 08:09 10/28/24 08:09 Labs: Short CBC 10/27/24 10/28/24 Range/Units 17:28 08:09 WBC 11.8 H 10.4 H (4.5-10.0) K/mm3 Hgb 13.3 11.8 L (12.0-15.0) g/dL Hct 41.3 38.8 (37.0-47.0) % Plt Count 277 224 (150-375) k/mm3 BMP 10/27/24 10/27/24 10/28/24 18:43 23:27 08:09 Sodium 134 L 138 143 Potassium 4.6 4.0 3.5 Chloride 92 L 100 110 H Carbon Dioxide 30 28 22 BUN 56 H D 48 H 40 H Creatinine 1.37 H 1.19 H 1.00 Glucose 738 H* 581 H* 110 Calcium 9.5 8.7 8.6 Liver Function 10/27/24 10/28/24 Range/Units 18:43 08:09 Total Bilirubin 0.6 0.5 (0.2-1.3) mg/dL AST 23 21 (14-36) U/L ALT 17 17 (6-35) U/L Alkaline Phosphatase 171 H 133 H (38-126) U/L Albumin 3.9 3.3 L (3.5-5.1) g/dL Urine 10/27/24 Range/Units 17:45 Urine Color Yellow (Yellow) Urine Appearance Clear (Clear) Urine pH 5.0 (5.0-9.0) Ur Specific [place] 1.030 (1.001-1.035) Urine Protein 1+ H (Negative) mg/dL Urine Glucose (UA) 3+ H (Negative) mg/dL Quality VTE Prophylaxis VTE prophylaxis: pharmacologic ordered Hospitalist [facility] Advance Care Plan I have confirmed that the patient's Advanced Care Plan is present, code status is documented, or surrogate decision maker is listed in patient medical record.: Yes Medication Reconciliation I have utilized all available resources to obtain, update and review the patients current medications (includes all prescriptions, OTC, herbals, cannabis, and nutritional supplements).: Yes
[2024-10-28 09:15] LABS: Device ROOM AIR
[2024-10-28 10:02] LABS: Hemoglobin A1C 12.4 % (<5.7)
[2024-10-28 10:24] LABS: Reflex Lactic Acid Yes or No Add Lactic
[2024-10-28] MEDS: ENOXAPARIN 40 MG/0.4 ML SYRINGE SUB-Q (10:31)
[2024-10-28 10:59] LABS: Lactic Acid 2.4 mmol/L (0.7-2.0)
[2024-10-28 11:42] LABS: Glucose Point of Care 185 mg/dl (65-105)
[2024-10-28 16:37] LABS: Glucose Point of Care 244 mg/dl (65-105)
[2024-10-28] MEDS: INSULIN ASPART (*BKC) 100 UNITS/ML SUB-Q ×2 (16:39→20:04)
[2024-10-28] MEDS: MIRTAZAPINE 15 MG TABLET PO (20:04)
[2024-10-28 20:10] LABS: Glucose Point of Care 250 mg/dl (65-105)
--- NOTE | 2024-10-28 21:29 | PC.NURSE ---
This patient, Mayuri Fernando, was transferred to [facility] on 10/28/24 at 2120. Personal belongings sent with patient. Report given to YAIMA Camp. Appropriate documentation sent with patient.
[2024-10-29] VITALS: BP 131/40; PULSE 76; RESP 14; TEMP 36.3; O2SAT 99
[2024-10-29] MEDS: LEVOTHYROXINE SODIUM 75 MCG TABLET PO (05:40)
[2024-10-29 06:49] LABS: Basophils Percent Auto 0.4 % (0.2-1.2); Eosinophils Absolute Auto 0.4 K/mm3 (0-0.3); Eosinophils Percent Auto 4.1 % (0-4.4); Hematocrit 33.8 % (37.0-47.0); Hemoglobin 10.9 g/dL (12.0-15.0); Immature Granulocyte Absolute 0.07 K/mm3 (0.00-0.031); Immature Granulocyte Percent A 0.8 % (0-0.5); Lymphocytes Percent Auto 25.4 % (18.3-44.2); Mean Corpuscular HGB Conc 32.2 g/dl (32-36); Mean Corpuscular Hemoglobin 30.4 pg (26-34); Mean Corpuscular Volume 94.2 fl (80-100); Mean Platelet Volume 10.8 fl (7.4-10.4); Monocytes Absolute Auto 0.7 K/mm3 (0.1-0.6); Monocytes Percent Auto 7.4 % (2.6-8.5); Neutrophils Absolute Auto 5.6 K/mm3 (1.3-6.7); Neutrophils Percent Auto 61.9 % (45.5-73.1); Platelet Count Result 231 k/mm3 (150-375); Red Blood Count 3.59 M/mm3 (4.2-5.4); Red Cell Distribution Width 13.2 % (11.5-14.5); White Blood Count 9.1 K/mm3 (4.5-10.0)
[2024-10-29 07:08] LABS: Alanine Aminotransferase 15 U/L (6-35); Alkaline Phosphatase 135 U/L (38-126); Anion Gap 6 mmol/L (4-12); Aspartate Amino Transferase 22 U/L (14-36); Bilirubin,Total 0.4 mg/dL (0.2-1.3); Blood Urea Nitrogen 31 mg/dL (7-17); Calcium 8.5 mg/dL (8.4-10.2); Carbon Dioxide 28 mmol/L (22-30); Chloride 104 mmol/L (98-107); Estimated CRCL calculation 33 ml/min; Estimated Glomerular Filt Rate 55; Glucose 295 mg/dL (65-110); Magnesium 2.2 mg/dL (1.6-2.3); Phosphorus 1.8 mg/dL (2.5-4.5); Potassium 3.4 mmol/L (3.4-5.0); Sodium 138 mmol/L (137-145)
[2024-10-29 08:00] VITALS: BP 123/87; PULSE 71; RESP 12; TEMP 36.3; O2SAT 100
[2024-10-29 08:05] LABS: Glucose Point of Care 293 mg/dl (65-105)
[2024-10-29] MEDS: INSULIN GLARGINE (*BKC) 100 UNITS/ML 10 UNITS SUB-Q (08:43)
[2024-10-29] MEDS: ENOXAPARIN 40 MG/0.4 ML SYRINGE SUB-Q (08:44)
[2024-10-29] MEDS: INSULIN ASPART (*BKC) 100 UNITS/ML SUB-Q ×4 (08:44→16:54)
[2024-10-29] MEDS: amLODIPine BESYLATE 2.5 MG TABLET PO (08:46)
--- NOTE | 2024-10-29 09:15 | PM.IMHP ---
H&P: HPI History of Present Illness Date/Time: 10/29/24 09:15 Chief Complaint: Generalized weakness confusion Narrative: Mayuri Fernando is a 84 year old female with past medical history of central cord syndrome, arthritis, gastric ulcer, GERD, diabetes, essential hypertension, hyperlipidemia, hypothyroidism dementia presented the ED on 10/27/2024 with complaints of elevated blood sugars, confusion, generalized weakness which has been ongoing for 2-3 weeks per patient's . In the ER patient was found to have blood sugars of 738, CO2 30, anion gap 12, BUN 56, creatinine 1.37, initial lactic acid was 2.4, repeat lactic was 1.5 after fluids. Hemoglobin WBC 11.8, hemoglobin 13.3, platelets 277, INR of 1.1. LFTs within normal limits, beta hydroxybutyrate was 1.25, TSH was 0.23. UA showed 1+ protein, 3+ glucose and 1+ ketones, no leukocyte esterase or urine nitrates. Chest x-ray with no acute cardiopulmonary pathology. Head CT with no acute intracranial findings. Patient received 3 L of IV fluids, was started on insulin infusion. Patient transferred to the ICU for further management. With improvement in blood sugar patient was transition to long-acting insulin. A1c was elevated 12.4. Patient transferred back to floor. She complains of pain in her abdomen and cries. Cardiac to family at bedside she has an ongoing problem with abdominal pain for many years. Review of Systems Review of Systems: - CONSTITUTIONAL: Denies weight loss, fever and chills. - HEENT: Denies changes in vision and hearing - RESPIRATORY: Denies SOB and cough. - CV: Denies palpitations and CP. - GI: Reports abdominal pain, nausea, no vomiting and diarrhea. - : Denies dysuria and urinary frequency. - MSK: Denies myalgia and joint pain. - SKIN: Denies rash and pruritus. - NEUROLOGICAL: Denies headache and syncope. Reports generalized weakness - PSYCHIATRIC: Denies recent changes in mood. Denies anxiety and depression. [facility] Past Medical History Medical History Central cord syndrome Arthritis Ulcer Gastric ulcer GERD (gastroesophageal reflux disease) Diabetes Hypertension Hyperlipidemia Dementia Surgical History Surgical History History of knee replacement Family History Family History (Updated 10/28/24 @ 05:43 by Ange Apodaca RN) Father Myocardial infarct Mother Cancer Social History Social History Smoking status: Never smoker Alcohol intake: never Substance use: never Substance use type: does not use Do You Feel Safe in your Home?: Yes Lack of Transportation: No Lack of Food: Never True Current Housing: I Have Housing Concerned About Future Housing: No Difficulty Paying Gas/Electric Bills: No Difficulty Paying for Meds: No Currently Unemployed: No Education: High School Diploma/GED Difficulty w/ Childcare or Family Care: No Living arrangements: with family Additional living arrangements comments: - /- Occupation/Education: retired Spiritual care concerns: No Meds Home Medications and Allergies Home Medications ?Medication ?Instructions ?Recorded ?Confirmed ?Type bisoprolol 5 1 tablet PO QAM 01/12/20 10/28/24 History mg-hydrochlorothiazide 6.25 mg tablet levothyroxine 75 mcg tablet 75 mcg PO QAM 01/12/20 10/28/24 History (Synthroid) amlodipine 2.5 mg tablet 2.5 mg PO DAILY 11/26/23 10/28/24 History mirtazapine 7.5 mg tablet 15 mg PO HS 11/26/23 10/28/24 History gabapentin 400 mg capsule 400 mg PO TID #90 caps 01/21/24 10/28/24 Rx Allergies Allergy/AdvReac Type Severity Reaction Status Date / Time metronidazole Allergy Severe Unknown Verified 10/28/24 05:44 codeine Allergy Intermediate HYPERACTIVI Verified 10/28/24 05:44 TY Vital Signs Vital Signs - 24 hr 10/28/24 10:00 10/28/24 10:00 10/28/24 12:00 Temperature 98.0 F Pulse Rate 59 L 59 L 64 Respiratory Rate 13 15 Blood Pressure 106/46 L 119/58 L Pulse Oximetry 98 100 Oxygen Delivery 10/28/24 16:00 10/28/24 20:00 10/29/24 00:00 Temperature 99.5 F 97.4 F L Pulse Rate 71 76 Respiratory Rate 15 14 Blood Pressure 101/68 131/40 L Pulse Oximetry 99 99 Oxygen Delivery Room Air 10/29/24 08:00 Temperature 97.4 F L Pulse Rate 71 Respiratory Rate 12 Blood Pressure 123/87 Pulse Oximetry 100 Oxygen Delivery Exam Narrative: General: Pleasant patient in no acute distress HEENT:? Pupils equal and reactive, sclerae ischemia, moist oral mucous Neck:? Supple Respiratory:? Clear to auscultation bilaterally Cardiac:? S1-S2 normal, regular rate and rhythm Abdomen:? Soft, nontender, nondistended, normoactive bowel sounds Extremities:? No edema, palpable pedal pulse Neuro:? Patient is awake, alert, oriented to self which is her baseline, follows simple commands Skin:? No skin lesions no Psych:? Cognitive impairment noted H&P: Results Labs Labs: Short CBC 10/29/24 Range/Units 05:58 WBC 9.1 (4.5-10.0) K/mm3 Hgb 10.9 L (12.0-15.0) g/dL Hct 33.8 L (37.0-47.0) % Plt Count 231 (150-375) k/mm3 BMP 10/29/24 05:58 Sodium 138 Potassium 3.4 Chloride 104 Carbon Dioxide 28 BUN 31 H Creatinine 0.96 Glucose 295 H Calcium 8.5 Liver Function 10/29/24 Range/Units 05:58 Total Bilirubin 0.4 (0.2-1.3) mg/dL AST 22 (14-36) U/L ALT 15 (6-35) U/L Alkaline Phosphatase 135 H (38-126) U/L Albumin 3.0 L (3.5-5.1) g/dL Assessment and Plan Assessment and plan (1) Hyperosmolar non-ketotic state due to type 2 diabetes mellitus: Code(s): E11.00 - Type 2 diabetes mellitus with hyperosmolarity without nonketotic hyperglycemic-hyperosmolar coma ([facility]) Status: Acute (2) Hypertension: Code(s): I10 - Essential (primary) hypertension Status: Acute (3) Diabetes: Code(s): E11.9 - Type 2 diabetes mellitus without complications Status: Acute (4) Hypothyroidism: Code(s): E03.9 - Hypothyroidism, unspecified Status: Acute (5) Dementia: Qualifiers: Dementia behavioral or psychological symptom: unspecified whether behavioral, psychotic, or mood disturbance or anxiety Dementia severity: unspecified severity Dementia type: unspecified type Qualified Code(s): F03.90 - Unspecified dementia, unspecified severity, without behavioral disturbance, psychotic disturbance, mood disturbance, and anxiety Code(s): F03.90 - Unspecified dementia, unspecified severity, without behavioral disturbance, psychotic disturbance, mood disturbance, and anxiety Status: Acute Plan Mayuri Fernando is a 84 year old female with past medical history of central cord syndrome, arthritis, gastric ulcer, GERD, diabetes, essential hypertension, hyperlipidemia, hypothyroidism dementia presented the ED on 10/27/2024 with complaints of elevated blood sugars, confusion, generalized weakness which has been ongoing for 2-3 weeks per patient's . In the ER patient was found to have blood sugars of 738, CO2 30, anion gap 12, BUN 56, creatinine 1.37, initial lactic acid was 2.4, repeat lactic was 1.5 after fluids. Hemoglobin WBC 11.8, hemoglobin 13.3, platelets 277, INR of 1.1. LFTs within normal limits, beta hydroxybutyrate was 1.25, TSH was 0.23. UA showed 1+ protein, 3+ glucose and 1+ ketones, no leukocyte esterase or urine nitrates. Chest x-ray with no acute cardiopulmonary pathology. Head CT with no acute intracranial findings. Patient received 3 L of IV fluids, was started on insulin infusion. Patient transferred to the ICU for further management. With improvement in blood sugar patient was transition to long-acting insulin. A1c was elevated 12.4. Patient transferred back to floor. Hyper osmolar nonketotic hyperglycemia adjust insulin Abdominal pain and nausea: Unclear etiology. Continue Ppi. Will check CT to further evaluate. The chronic for family healthy any workup in the past on the medical record here. History of H pylori positive 2019. EGD with gastric ulcer 2019. Will get stool antigen H pylori test. UTI at ceftriaxone Hypertension Type 2 diabetes mellitus Hypothyroidism Dementia Cervical canal stenosis with cord compression manage conservatively DVT prophylaxis Lovenox Generalized weakness PT OT Code status full code Hospitalist [facility] Advance Care Plan I have confirmed that the patient's Advanced Care Plan is present, code status is documented, or surrogate decision maker is listed in patient medical record.: Yes Medication Reconciliation I have utilized all available resources to obtain, update and review the patients current medications (includes all prescriptions, OTC, herbals, cannabis, and nutritional supplements).: Yes
[2024-10-29] MEDS: POTASSIUM PHOS/SODIUM PHOS 250 MG TABLET PO (10:26)
[2024-10-29] MEDS: INSULIN GLARGINE (*BKC) 100 UNITS/ML 8 UNITS SUB-Q (10:26)
[2024-10-29 11:54] LABS: Glucose Point of Care 306 mg/dl (65-105)
[2024-10-29 14:00] VITALS: BP 108/42; PULSE 80; RESP 16; TEMP 36.2; O2SAT 100
[2024-10-29 16:18] LABS: Glucose Point of Care 170 mg/dl (65-105)
[2024-10-29] MEDS: PANTOPRAZOLE SODIUM IV 40 MG VIAL IV PUSH (16:54)
[2024-10-29 17:11] LABS: Lactic Acid Reflex 1.5 mmol/L (0.7-2.0)
[2024-10-29] MEDS: MIRTAZAPINE 15 MG TABLET PO (19:32)
[2024-10-29 21:57] VITALS: BP 105/50; PULSE 86; RESP 18; TEMP 36.3; O2SAT 100
[2024-10-29] MEDS: KETOROLAC 15 MG/ML VIAL (*BKC) IV PUSH (23:19)
[2024-10-30 05:07] LABS: Glucose Point of Care 169 mg/dl (65-105)
[2024-10-30 06:00] VITALS: BP 145/58; PULSE 70; RESP 18; TEMP 36.4; O2SAT 98
[2024-10-30 07:54] LABS: Glucose Point of Care 223 mg/dl (65-105)
[2024-10-30 08:47] LABS: Basophils Absolute Auto 0.1 K/mm3 (0.0-0.1); Basophils Percent Auto 1.1 % (0.2-1.2); Eosinophils Absolute Auto 0.2 K/mm3 (0-0.3); Eosinophils Percent Auto 3.2 % (0-4.4); Hematocrit 34.3 % (37.0-47.0); Hemoglobin 10.4 g/dL (12.0-15.0); Immature Granulocyte Absolute 0.14 K/mm3 (0.00-0.031); Immature Granulocyte Percent A 2.2 % (0-0.5); Lymphocytes Absolute Auto 1.89 K/mm3 (0.9-3.2); Lymphocytes Percent Auto 29.2 % (18.3-44.2); Mean Corpuscular HGB Conc 30.3 g/dl (32-36); Mean Corpuscular Hemoglobin 30.3 pg (26-34); Mean Platelet Volume 10.5 fl (7.4-10.4); Monocytes Absolute Auto 0.5 K/mm3 (0.1-0.6); Monocytes Percent Auto 8.3 % (2.6-8.5); Neutrophils Absolute Auto 3.6 K/mm3 (1.3-6.7); Nucleated Red Blood Cells Perc 2.3 % (0.0-0.2); Platelet Count Result 210 k/mm3 (150-375); Red Blood Count 3.43 M/mm3 (4.2-5.4); Red Cell Distribution Width 13.2 % (11.5-14.5); White Blood Count 6.5 K/mm3 (4.5-10.0)
[2024-10-30] MEDS: amLODIPine BESYLATE 2.5 MG TABLET PO (08:53)
[2024-10-30] MEDS: INSULIN ASPART (*BKC) 100 UNITS/ML SUB-Q ×3 (08:53→12:20)
[2024-10-30] MEDS: INSULIN GLARGINE (*BKC) 100 UNITS/ML 18 UNITS SUB-Q (08:53)
[2024-10-30] MEDS: PANTOPRAZOLE SODIUM IV 40 MG VIAL IV PUSH (08:54)
[2024-10-30] MEDS: ENOXAPARIN 40 MG/0.4 ML SYRINGE SUB-Q (08:54)
[2024-10-30 08:57] LABS: Alanine Aminotransferase 15 U/L (6-35); Albumin Level 2.6 g/dL (3.5-5.1); Alkaline Phosphatase 118 U/L (38-126); Anion Gap 3 mmol/L (4-12); Aspartate Amino Transferase 20 U/L (14-36); Bilirubin,Total 0.3 mg/dL (0.2-1.3); Blood Urea Nitrogen 26 mg/dL (7-17); Calcium 8.2 mg/dL (8.4-10.2); Carbon Dioxide 27 mmol/L (22-30); Chloride 106 mmol/L (98-107); Estimated CRCL calculation 34 ml/min; Estimated Glomerular Filt Rate 55; Glucose 221 mg/dL (65-110); Potassium 3.4 mmol/L (3.4-5.0); Sodium 136 mmol/L (137-145)
[2024-10-30] MEDS: LEVOTHYROXINE SODIUM 75 MCG TABLET PO (09:11)
--- NOTE | 2024-10-30 09:50 | PCPTNOTE ---
Attempted pt evaluation. Pt reports is cold, states hurts everywhere, is able to attend to therapist and follow single step commands. However with attempted bed mobility pt is moaning and does not participate in instructions. Assisted to reposition in bed. Pt inappropriate for therapy today, will reassess and initiate therapy as able.
--- NOTE | 2024-10-30 09:51 | PCOTNOTE ---
Attempted to see patient for OT evaluation. Patient crying out in pain with attempts to try to mobilize her. Patient closing eyes and refusing to participate at this time. Will continue to attempt.
[2024-10-30 11:37] LABS: Glucose Point of Care 173 mg/dl (65-105)
--- NOTE | 2024-10-30 12:33 | P.PNIM_ITS ---
Progress Note: A&P Assessment and Plan (1) Hyperosmolar non-ketotic state due to type 2 diabetes mellitus: Code(s): E11.00 - Type 2 diabetes mellitus with hyperosmolarity without nonketotic hyperglycemic-hyperosmolar coma (N[facility]) Status: Acute (2) Hypertension: Code(s): I10 - Essential (primary) hypertension Status: Acute (3) Diabetes: Code(s): E11.9 - Type 2 diabetes mellitus without complications Status: Acute (4) Hypothyroidism: Code(s): E03.9 - Hypothyroidism, unspecified Status: Acute (5) Dementia: Qualifiers: Dementia behavioral or psychological symptom: unspecified whether behavioral, psychotic, or mood disturbance or anxiety Dementia severity: unspecified severity Dementia type: unspecified type Qualified Code(s): F03.90 - Unspecified dementia, unspecified severity, without behavioral disturbance, psychotic disturbance, mood disturbance, and anxiety Code(s): F03.90 - Unspecified dementia, unspecified severity, without behavioral disturbance, psychotic disturbance, mood disturbance, and anxiety Status: Acute Plan Mayuri Fernando is a 84 year old female with past medical history of central cord syndrome, arthritis, gastric ulcer, GERD, diabetes, essential hypertension, hyperlipidemia, hypothyroidism dementia presented the ED on 10/27/2024 with complaints of elevated blood sugars, confusion, generalized weakness which has been ongoing for 2-3 weeks per patient's . In the ER patient was found to have blood sugars of 738, CO2 30, anion gap 12, BUN 56, creatinine 1.37, initial lactic acid was 2.4, repeat lactic was 1.5 after fluids. Hemoglobin WBC 11.8, hemoglobin 13.3, platelets 277, INR of 1.1. LFTs within normal limits, beta hydroxybutyrate was 1.25, TSH was 0.23. UA showed 1+ protein, 3+ glucose and 1+ ketones, no leukocyte esterase or urine nitrates. Chest x-ray with no acute cardiopulmonary pathology. Head CT with no acute intracranial findings. Patient received 3 L of IV fluids, was started on insulin infusion. Patient transferred to the ICU for further management. With improvement in blood sugar patient was transition to long-acting insulin. A1c was elevated 12.4. Patient transferred back to floor. Hyper osmolar nonketotic hyperglycemia adjust insulin Abdominal pain and nausea: Unclear etiology. Continue Ppi. Will check CT to further evaluate which is pending. The chronic for family healthy any workup in the past on the medical record here. History of H pylori positive 2019. EGD with gastric ulcer 2019. Will get stool antigen H pylori test. UTI at ceftriaxone Hypertension Type 2 diabetes mellitus Hypothyroidism Dementia Cervical canal stenosis with cord compression manage conservatively DVT prophylaxis Lovenox Generalized weakness PT OT to see Code status full code Subjective Date/time seen: 10/30/24 12:33 Interval history: No overnight events. States abdomen pain is better. Blood sugar trend reviewed. Review of Systems Review of Systems: All systems reviewed & are unremarkable except as noted in HPI and below Exam Narrative: General: Pleasant patient in no acute distress HEENT:? Pupils equal and reactive, sclerae ischemia, moist oral mucous Neck:? Supple Respiratory:? Clear to auscultation bilaterally Cardiac:? S1-S2 normal, regular rate and rhythm Abdomen:? Soft, nontender, nondistended, normoactive bowel sounds Extremities:? No edema, palpable pedal pulse Neuro:? Patient is awake, alert, oriented to self which is her baseline, follows simple commands Skin:? No skin lesions no Psych:? Cognitive impairment noted Objective Data Vital Signs Vital Signs: Vital Signs - 24 hr 10/29/24 14:00 10/29/24 20:00 10/29/24 21:57 Temperature 97.2 F L 97.3 F L Pulse Rate 80 86 Respiratory Rate 16 18 Blood Pressure 108/42 L 105/50 L Pulse Oximetry 100 100 Oxygen Delivery Room Air 10/30/24 06:00 Temperature 97.5 F L Pulse Rate 70 Respiratory Rate 18 Blood Pressure 145/58 H Pulse Oximetry 98 Oxygen Delivery Intake/Output Intake/Output: Intake & Output 10/27/24 10/28/24 10/29/24 10/30/24 23:59 23:59 23:59 23:59 Intake Total 1500 3418.1 1430 120 Output Total 400 250 775 Balance 1500 3018.1 1180 -655 Meds/Results Medications: Active Medications Generic Name Dose Route Start Last Admin Trade Name Freq PRN Reason Stop Dose Admin Acetaminophen 325 mg 10/29/24 22:57 Acetaminophen 325 Mg Tablet PO Q4H PRN Mild Pain (1-3) or Fever Amlodipine Besylate 2.5 mg 10/28/24 09:45 10/30/24 08:53 Amlodipine Besylate 2.5 Mg Tablet PO 2.5 mg DAILY NATALIIA Administration Dextrose 12.5 gm 10/29/24 09:21 Dextrose 50% 25 Gm/50 Ml Syringe IV PUSH PRN PRN Hypoglycemia Protocol Enoxaparin Sodium 40 mg 10/29/24 09:00 10/30/24 08:54 Enoxaparin 40 Mg/0.4 Ml Syringe SUB-Q 40 mg DAILY NATALIIA Administration Glucagon 1 mg 10/29/24 09:21 Glucagon For Inj 1 Mg Vial IM PRN PRN Hypoglycemia Protocol Glucose 15 gm 10/29/24 09:21 Glucose Oral Gel 15 Gm Of Glucse In 37.5 Gm Tube PO PRN PRN Hypoglycemia Protocol Dextrose 1,000 mls @ 100 mls/hr 10/29/24 09:21 Dextrose 5% 1,000 Ml IVPB PRN PRN Hypoglycemia Protocol Ceftriaxone Sodium 1 gm in 50 mls @ 100 mls/hr 10/29/24 15:00 10/29/24 16:56 Rocephin 1 Gm/Ns 50 Ml IVPB 100 mls/hr Q24H NATALIIA Administration Insulin Aspart 1 - 3 units 10/28/24 21:00 10/29/24 23:02 Insulin Aspart (*Bkc) 100 Units/Ml SUB-Q Not Given HS [facility] Protocol Insulin Aspart 3 - 6 units 10/28/24 08:00 10/30/24 12:18 Insulin Aspart (*Bkc) 100 Units/Ml SUB-Q Not Given TIDWM [facility] Protocol Insulin Aspart 5 units 10/29/24 12:00 10/30/24 12:20 Insulin Aspart (*Bkc) 100 Units/Ml 0.067 units/kg (5 units) 5 units SUB-Q Administration TIDWM [facility] Insulin Glargine 18 units 10/30/24 09:00 10/30/24 08:53 Insulin Glargine (*Bkc) 100 Units/Ml SUB-Q 18 units DAILY NATALIIA Administration Levothyroxine Sodium 75 mcg 10/28/24 07:40 10/30/24 05:59 Levothyroxine Sodium 75 Mcg Tablet PO Not Given DAILY@0630 NATALIIA Mirtazapine 15 mg 10/28/24 21:00 10/29/24 19:32 Mirtazapine 15 Mg Tablet PO 15 mg HS NATALIIA Administration Pantoprazole Sodium 40 mg 10/30/24 09:00 10/30/24 08:54 Pantoprazole Sodium Iv 40 Mg Vial IV PUSH 40 mg QAM NATALIIA Administration Radiology Results: ITS Impressions Head CT 10/27/24 17:06 IMPRESSION: No acute intracranial findings. Chest X-Ray 10/27/24 17:17 IMPRESSION: No acute cardiopulmonary pathology. Labs Labs: Laboratory Results - last 24 hr 10/29/24 10/29/24 10/29/24 16:12 16:45 20:41 WBC RBC Hgb Hct MCV MCH MCHC RDW Plt Count MPV Immature Gran % (Auto) Neut % (Auto) Lymph % (Auto) [place] % (Auto) Eos % (Auto) Baso % (Auto) Lymph # (Auto) [place] # (Auto) Eos # (Auto) Baso # (Auto) Abs Immat Gran (auto) Absolute Neuts (auto) Absolute Nucleated RBC Nucleated RBC % Sodium Potassium Chloride Carbon Dioxide Anion Gap BUN Creatinine Estim Creat Clear Calc Estimated GFR Glucose POC Capillary Glucose 170 H 169 H Lactic Acid 1.5 Calcium Magnesium Total Bilirubin AST ALT Alkaline Phosphatase Total Protein Albumin 10/30/24 10/30/24 10/30/24 07:48 08:32 11:18 WBC 6.5 RBC 3.43 L Hgb 10.4 L Hct 34.3 L MCV 100.0 D MCH 30.3 MCHC 30.3 L RDW 13.2 Plt Count 210 MPV 10.5 H Immature Gran % (Auto) 2.2 H Neut % (Auto) 56.0 Lymph % (Auto) 29.2 [place] % (Auto) 8.3 Eos % (Auto) 3.2 Baso % (Auto) 1.1 Lymph # (Auto) 1.89 [place] # (Auto) 0.5 Eos # (Auto) 0.2 Baso # (Auto) 0.1 Abs Immat Gran (auto) 0.14 H Absolute Neuts (auto) 3.6 Absolute Nucleated RBC 0.150 H Nucleated RBC % 2.3 H Sodium 136 L Potassium 3.4 Chloride 106 Carbon Dioxide 27 Anion Gap 3 L BUN 26 H Creatinine 0.97 Estim Creat Clear Calc 34 Estimated GFR 55 L Glucose 221 H POC Capillary Glucose 223 H 173 H Lactic Acid Calcium 8.2 L Magnesium 2.0 Total Bilirubin 0.3 AST 20 ALT 15 Alkaline Phosphatase 118 Total Protein 5.0 L Albumin 2.6 L
[2024-10-30 14:00] VITALS: BP 121/46; PULSE 80; RESP 16; TEMP 36.2; O2SAT 99
[2024-10-30] MEDS: SODIUM CHLORIDE 0.9% IV 1,000 ML 60 ML IV CONT (14:45)
[2024-10-30 16:52] LABS: Glucose Point of Care 131 mg/dl (65-105)
[2024-10-30] MEDS: MIRTAZAPINE 15 MG TABLET PO (20:50)
[2024-10-30 22:20] VITALS: BP 110/47; PULSE 92; RESP 16; TEMP 36.7; O2SAT 97
[2024-10-30 22:26] LABS: Glucose Point of Care 190 mg/dl (65-105)
--- NOTE | 2024-10-31 | ECHO_ITS ---
Patient Info Name: Mayuri Fernando Age: 84 years : 1940 Gender: Female Ht: 61 in Wt: 162 lbs BSA: 1.81 m2 HR: 84 bpm BP: 148 / 55 mmHg Technical Quality: Fair Exam Date: 10/31/2024 2:28 PM Exam Location: Echo Lab Patient Status: Inpatient Admit Date: 10/28/2024 Staff Ordering Physician: Kevan Vargas MD Railroad Car Checker: Abena Kong RDCS Attending Provider: Rafa Davenport MD Exam Type: CA echo doppler color flow Study Info Indications - PE R01.1 - Cardiac murmur, unspecified Complete two-dimensional, color flow and Doppler transthoracic echocardiogram is performed. Summary 1. Technically difficult study with limited views. 2. Left ventricular chamber dimension is normal. 3. Left ventricular systolic function is normal, estimated at >70%. 4. There is moderately increased left ventricular wall thickness. 5. The left ventricular diastolic function is grade I diastolic dysfunction. 6. Right ventricular chamber dimension is normal. 7. Right ventricular systolic function is normal. 8. There is severe aortic valve calcification. 9. There is severe aortic valve stenosis with a peak velocity of 383 cm/s, mean gradient of 26 mmHg, and aortic valve area of 0.8 cm2. 10. There is mild to moderate aortic valve regurgitation. 11. There is mild tricuspid valve regurgitation. Left Ventricle Left ventricular chamber dimension is normal. Left ventricular systolic function is normal, estimated at >70%. There is moderately increased left ventricular wall thickness. The left ventricular diastolic function is grade I diastolic dysfunction. Right Ventricle Right ventricular chamber dimension is normal. Right ventricular systolic function is normal. Left Atria Left atrial chamber dimension is normal. Right Atria Right atrial chamber dimension is normal. Atrial Septum Intact interatrial septum visualized by color flow imaging. Aortic Valve There is severe aortic valve stenosis with a peak velocity of 383 cm/s, mean gradient of 26 mmHg, and aortic valve area of 0.8 cm2. There is mild to moderate aortic valve regurgitation. There is severe aortic valve calcification. Pulmonic Valve The pulmonic valve is not well visualized. Mitral Valve The mitral valve has thickened leaflets. There is trace mitral valve regurgitation. Tricuspid Valve There is mild tricuspid valve regurgitation. Pericardium/Pleural There is no pericardial effusion. Inferior Vena Cava Normal inferior vena cava with >50% collapse upon inspiration consistent with normal right atrial pressure, 3 mmHg. Aorta The aortic root size at the sinus of Valsalva is normal. Left Ventricular Outflow Tract Name Value Normal LVOT 2D LVOT Diameter 1.9 cm LVOT Doppler LVOT Peak Gradient 3 mmHg LVOT Mean Gradient 2 mmHg LVOT VTI 16 cm LVOT VTI/AV VTI Ratio 0.3 LVOT Stroke Volume 46 ml LVOT CO 4.2 l/min LVOT CI 2.3 l/min/m2 Pulmonic Valve Name Value Normal RVOT Doppler RVOT Peak Gradient 3 mmHg PV Doppler PV Peak Gradient 4 mmHg Mitral Valve Name Value Normal MV Doppler MV Decel Dyer 545 cm/s2 MV PHT 38 ms MV Area (PHT) 5.8 cm2 4.0-5.0 MV Diastolic Function MV E Peak Velocity 71 cm/s MV A Peak Velocity 146 cm/s MV E/A 0.5 MV Decel Time 131 ms Tricuspid Valve Name Value Normal TV Regurgitation Doppler TR Peak Velocity 295 cm/s TR Peak Gradient 35 mmHg Estimated PAP/RSVP RA Pressure 3 mmHg <=5 PA Systolic Pressure 38 mmHg <36 RV Systolic Pressure 38 mmHg <36 Aorta Name Value Normal Ascending Aorta Ao Root Diameter (MM) 2.3 cm Ao Root Diam Index (MM) 1.3 cm/m2 Aortic Valve Name Value Normal AV Doppler AV Peak Velocity 383 cm/s AV Peak Gradient 39 mmHg AV Mean Gradient 26 mmHg AV VTI 58 cm AV Area (Cont Eq VTI) 0.8 cm2 >=3.0 AV Area (Cont Eq Stephen) 0.8 cm2 AV Regurgitation 2D LVOT Area 2.9 cm2 AV Regurgitation Doppler AR Decel Time 1,617 ms AR Decel Dyer 163 cm/s2 AR PHT 469 ms Ventricles Name Value Normal LV Dimensions 2D/MM LVOT Diameter 1.9 cm LV Fractional Shortening/Ejection Fraction 2D/MM LV Diastolic Volume (4C MOD) 46 ml LV EF (4C MOD) 68 % LV Diastolic Volume (2C MOD) 41 ml LV EF (2C MOD) 64 % LV Diastolic Volume (BP MOD) 43 ml 46-106 LV Diastolic Volume Index (BP MOD) 24 ml/m2 29-61 LV Systolic Volume (BP MOD) 16 ml 14-42 LV Systolic Volume Index (BP MOD) 9 ml/m2 8-24 LV EF (BP MOD) 64 % 54-74 LV Diastolic Length (4C) 7.1 cm LV Systolic Length (4C) 5.5 cm LV Stroke Volume (4C MOD) 31 ml Atria Name Value Normal LA Dimensions LA Dimension (MM) 3.1 cm 2.7-3.8 LA Volume (4C A-L) 33 ml LA Volume (BP A-L) 35 ml RA Dimensions RA Area (4C) 9.0 cm2 <=18.0 Report Signatures
[2024-10-31 04:48] VITALS: BP 148/55; PULSE 87; RESP 20; TEMP 36.4; O2SAT 97
[2024-10-31] MEDS: LEVOTHYROXINE SODIUM 75 MCG TABLET PO (05:27)
[2024-10-31 08:29] LABS: Glucose Point of Care 182 mg/dl (65-105)
[2024-10-31] MEDS: amLODIPine BESYLATE 2.5 MG TABLET PO (08:37)
[2024-10-31] MEDS: ENOXAPARIN 40 MG/0.4 ML SYRINGE SUB-Q (08:38)
[2024-10-31] MEDS: PANTOPRAZOLE SODIUM IV 40 MG VIAL IV PUSH (08:39)
[2024-10-31] MEDS: INSULIN GLARGINE (*BKC) 100 UNITS/ML 18 UNITS SUB-Q (08:40)
[2024-10-31] MEDS: INSULIN ASPART (*BKC) 100 UNITS/ML SUB-Q ×3 (08:41→17:32)
[2024-10-31] MEDS: ENOXAPARIN 30 MG/0.3 ML SYRINGE SUB-Q (11:01)
--- NOTE | 2024-10-31 11:21 | PM.IMPN ---
Progress Note: A&P Assessment and Plan (1) Hyperosmolar non-ketotic state due to type 2 diabetes mellitus: Code(s): E11.00 - Type 2 diabetes mellitus with hyperosmolarity without nonketotic hyperglycemic-hyperosmolar coma (NKHHC) Status: Acute (2) Hypertension: Code(s): I10 - Essential (primary) hypertension Status: Acute (3) Diabetes: Code(s): E11.9 - Type 2 diabetes mellitus without complications Status: Acute (4) Hypothyroidism: Code(s): E03.9 - Hypothyroidism, unspecified Status: Acute (5) Dementia: Qualifiers: Dementia behavioral or psychological symptom: unspecified whether behavioral, psychotic, or mood disturbance or anxiety Dementia severity: unspecified severity Dementia type: unspecified type Qualified Code(s): F03.90 - Unspecified dementia, unspecified severity, without behavioral disturbance, psychotic disturbance, mood disturbance, and anxiety Code(s): F03.90 - Unspecified dementia, unspecified severity, without behavioral disturbance, psychotic disturbance, mood disturbance, and anxiety Status: Acute Plan Mayuri Fernando is a 84 year old female with past medical history of central cord syndrome, arthritis, gastric ulcer, GERD, diabetes, essential hypertension, hyperlipidemia, hypothyroidism dementia presented the ED on 10/27/2024 with complaints of elevated blood sugars, confusion, generalized weakness which has been ongoing for 2-3 weeks per patient's . In the ER patient was found to have blood sugars of 738, CO2 30, anion gap 12, BUN 56, creatinine 1.37, initial lactic acid was 2.4, repeat lactic was 1.5 after fluids. Hemoglobin WBC 11.8, hemoglobin 13.3, platelets 277, INR of 1.1. LFTs within normal limits, beta hydroxybutyrate was 1.25, TSH was 0.23. UA showed 1+ protein, 3+ glucose and 1+ ketones, no leukocyte esterase or urine nitrates. Chest x-ray with no acute cardiopulmonary pathology. Head CT with no acute intracranial findings. Patient received 3 L of IV fluids, was started on insulin infusion. Patient transferred to the ICU for further management. With improvement in blood sugar patient was transition to long-acting insulin. A1c was elevated 12.4. Patient transferred back to floor. Hyper osmolar nonketotic hyperglycemia adjust insulin Abdominal pain and nausea: Unclear etiology. Continue Ppi. Will check CT to further evaluate which is pending. The chronic for family healthy any workup in the past on the medical record here. History of H pylori positive 2019. EGD with gastric ulcer 2019. Will get stool antigen H pylori test. CT abdomen negative for any acute intra-abdominal pathology mild proctitis noted Acute PE noted incidental finding will get CTA started on anticoagulation no hypoxia hypotension will also get echocardiogram Moderate aortic stenosis noted on echo 2019 UTI at ceftriaxone Hypertension Type 2 diabetes mellitus Hypothyroidism Dementia Cervical canal stenosis with cord compression manage conservatively DVT prophylaxis Lovenox Generalized weakness PT OT to see Code status full code Subjective Date/time seen: 10/31/24 11:21 Interval history: No overnight events. No new complaints. CT showed evidence of PE getting CTA. Review of Systems Review of Systems: All systems reviewed & are unremarkable except as noted in HPI and below Exam Narrative: General: Pleasant patient in no acute distress HEENT:? Pupils equal and reactive, sclerae ischemia, moist oral mucous Neck:? Supple Respiratory:? Clear to auscultation bilaterally Cardiac:? S1-S2 normal, regular rate and rhythm Abdomen:? Soft, nontender, nondistended, normoactive bowel sounds Extremities:? No edema, palpable pedal pulse Neuro:? Patient is awake, alert, oriented to self which is her baseline, follows simple commands Skin:? No skin lesions no Psych:? Cognitive impairment noted Objective Data Vital Signs Vital Signs: Vital Signs - 24 hr 10/30/24 14:00 10/30/24 20:00 10/30/24 22:20 Temperature 97.2 F L 98.0 F Pulse Rate 80 92 Respiratory Rate 16 16 Blood Pressure 121/46 L 110/47 L Pulse Oximetry 99 97 Oxygen Delivery Room Air 10/31/24 04:48 Temperature 97.6 F Pulse Rate 87 Respiratory Rate 20 Blood Pressure 148/55 H Pulse Oximetry 97 Oxygen Delivery Intake/Output Intake/Output: Intake & Output 10/28/24 10/29/24 10/30/24 10/31/24 23:59 23:59 23:59 23:59 Intake Total 3418.1 1480 1150 550 Output Total 555 939 9328 375 Balance 3018.1 1230 125 175 Meds/Results Medications: Active Medications Generic Name Dose Route Start Last Admin Trade Name Freq PRN Reason Stop Dose Admin Acetaminophen 325 mg 10/29/24 22:57 Acetaminophen 325 Mg Tablet PO Q4H PRN Mild Pain (1-3) or Fever Amlodipine Besylate 2.5 mg 10/28/24 09:45 10/31/24 08:37 Amlodipine Besylate 2.5 Mg Tablet PO 2.5 mg DAILY NATALIIA Administration Dextrose 12.5 gm 10/29/24 09:21 Dextrose 50% 25 Gm/50 Ml Syringe IV PUSH PRN PRN Hypoglycemia Protocol Glucagon 1 mg 10/29/24 09:21 Glucagon For Inj 1 Mg Vial IM PRN PRN Hypoglycemia Protocol Glucose 15 gm 10/29/24 09:21 Glucose Oral Gel 15 Gm Of Glucse In 37.5 Gm Tube PO PRN PRN Hypoglycemia Protocol Heparin Sodium (Porcine) 4,500 units 10/31/24 21:00 Heparin Sodium 5,000 Units/Ml Vial IV PUSH PRN PRN aPTT less than 55 seconds Heparin Sodium (Porcine) 2,500 units 10/31/24 21:00 Heparin Sodium 5,000 Units/Ml Vial IV PUSH PRN PRN aPTT 55 - 70 seconds Dextrose 1,000 mls @ 100 mls/hr 10/29/24 09:21 Dextrose 5% 1,000 Ml IVPB PRN PRN Hypoglycemia Protocol Ceftriaxone Sodium 1 gm in 50 mls @ 100 mls/hr 10/29/24 15:00 10/30/24 14:45 Rocephin 1 Gm/Ns 50 Ml IVPB 100 mls/hr Q24H NATALIIA Administration Sodium Chloride 1,000 mls @ 60 mls/hr 10/30/24 12:40 10/30/24 14:45 Normal Saline Iv IV CONT 60 mls/hr .[id number] NATALIIA Administration Heparin Sodium/Dextrose 25,000 units in 250 mls @ 10 mls/hr 10/31/24 19:00 Heparin Sodium/D5w 100 Units/Ml IV CONT .Q24H NATALIIA Protocol 1,000 UNITS/HR Insulin Aspart 1 - 3 units 10/28/24 21:00 10/30/24 22:56 Insulin Aspart (*Bkc) 100 Units/Ml SUB-Q Not Given HS [facility] Protocol Insulin Aspart 3 - 6 units 10/28/24 08:00 10/31/24 08:31 Insulin Aspart (*Bkc) 100 Units/Ml SUB-Q Not Given TIDWM [facility] Protocol Insulin Aspart 5 units 10/29/24 12:00 10/31/24 08:41 Insulin Aspart (*Bkc) 100 Units/Ml 0.067 units/kg (5 units) 5 units SUB-Q Administration TIDWM NATAL[facility] Insulin Glargine 18 units 10/30/24 09:00 10/31/24 08:40 Insulin Glargine (*Bkc) 100 Units/Ml SUB-Q 18 units DAILY NATALIIA Administration Levothyroxine Sodium 75 mcg 10/28/24 07:40 10/31/24 05:27 Levothyroxine Sodium 75 Mcg Tablet PO 75 mcg DAILY@0630 NATALIIA Administration Mirtazapine 15 mg 10/28/24 21:00 10/30/24 20:50 Mirtazapine 15 Mg Tablet PO 15 mg HS NATALIIA Administration Pantoprazole Sodium 40 mg 10/30/24 09:00 10/31/24 08:39 Pantoprazole Sodium Iv 40 Mg Vial IV PUSH 40 mg QAM NATALIIA Administration Perflutren Lipid Microsphere 0 ml 10/31/24 10:39 Perflutren Lipid Microspheres 1.5 Ml Vial Diluted To 10 Ml Total Volume IV PUSH 11/03/24 10:39 ONCE PRN adequate visualization Protocol Radiology Results: ITS Impressions Head CT 10/27/24 17:06 IMPRESSION: No acute intracranial findings. Chest X-Ray 10/27/24 17:17 IMPRESSION: No acute cardiopulmonary pathology. Abdomen/Pelvis CT 10/31/24 10:20 Impression: Partially imaged right main pulmonary artery embolus extending to segmental branches in the right lower lobe. Suspected left-sided pulmonary emboli at least involving segmental branches in the left lower lobe. Dedicated CTA of the chest recommended. Constipation and possible mild stercoral proctitis. ADDENDUM: 10/31/24 1036 Findings were discussed with Dr. Vargas at 10:35 AM on 10/31/2024. Labs Labs: Laboratory Results - last 24 hr 10/30/24 10/30/24 10/30/24 11:18 16:48 22:22 POC Capillary Glucose 173 H 131 H 190 H 10/31/24 08:22 POC Capillary Glucose 182 H
[2024-10-31 11:28] LABS: Basophils Percent Auto 0.5 % (0.2-1.2); Eosinophils Absolute Auto 0.2 K/mm3 (0-0.3); Eosinophils Percent Auto 2.4 % (0-4.4); Hematocrit 33.3 % (37.0-47.0); Hemoglobin 10.1 g/dL (12.0-15.0); Immature Granulocyte Percent A 1.3 % (0-0.5); Lymphocytes Absolute Auto 2.26 K/mm3 (0.9-3.2); Lymphocytes Percent Auto 28.5 % (18.3-44.2); Mean Corpuscular HGB Conc 30.3 g/dl (32-36); Mean Corpuscular Hemoglobin 30.1 pg (26-34); Mean Corpuscular Volume 99.1 fl (80-100); Mean Platelet Volume 10.2 fl (7.4-10.4); Monocytes Absolute Auto 0.7 K/mm3 (0.1-0.6); Monocytes Percent Auto 8.4 % (2.6-8.5); Neutrophils Absolute Auto 4.7 K/mm3 (1.3-6.7); Neutrophils Percent Auto 58.9 % (45.5-73.1); Platelet Count Result 218 k/mm3 (150-375); Red Blood Count 3.36 M/mm3 (4.2-5.4); Red Cell Distribution Width 13.2 % (11.5-14.5); White Blood Count 7.9 K/mm3 (4.5-10.0)
[2024-10-31 11:46] LABS: Prothrombin Time 14.1 Seconds (11.1-14.7)
[2024-10-31 11:47] LABS: Partial Thromboplastin Time 33.3 Seconds (22.3-36.8)
[2024-10-31 12:04] LABS: Glucose Point of Care 117 mg/dl (65-105)
--- NOTE | 2024-10-31 12:41 | PCPTNOTE ---
Spoke with current hospitalist who requested therapy evaluation be held for today.
--- NOTE | 2024-10-31 12:48 | PCOTNOTE ---
Pt with new pulmonary emboli and crying out in pain with any movement. Hospitalist asking to hold on pt today for therapy. Will continue to follow.
[2024-10-31 14:00] VITALS: BP 113/55; PULSE 96; RESP 20; TEMP 36.8; O2SAT 100
[2024-10-31 16:45] LABS: Glucose Point of Care 158 mg/dl (65-105)
[2024-10-31] MEDS: HEPARIN SOD/D5W 100 UNITS/ML 25,000 UNITS/250 ML BAG 10 UNITS IV CONT (21:08)
[2024-10-31] MEDS: MIRTAZAPINE 15 MG TABLET PO (21:14)
[2024-10-31] MEDS: CEFDINIR 300 MG CAPSULE PO (21:14)
[2024-10-31 21:33] VITALS: BP 113/93; PULSE 88; RESP 24; TEMP 36.9; O2SAT 97
[2024-11-01 02:52] LABS: Glucose Point of Care 116 mg/dl (65-105)
[2024-11-01 04:20] LABS: Basophils Percent Auto 0.4 % (0.2-1.2); Eosinophils Absolute Auto 0.3 K/mm3 (0-0.3); Eosinophils Percent Auto 2.7 % (0-4.4); Hematocrit 28.5 % (37.0-47.0); Hemoglobin 9.3 g/dL (12.0-15.0); Immature Granulocyte Absolute 0.15 K/mm3 (0.00-0.031); Immature Granulocyte Percent A 1.6 % (0-0.5); Lymphocytes Absolute Auto 2.66 K/mm3 (0.9-3.2); Lymphocytes Percent Auto 29.2 % (18.3-44.2); Mean Corpuscular HGB Conc 32.6 g/dl (32-36); Mean Corpuscular Hemoglobin 30.7 pg (26-34); Mean Corpuscular Volume 94.1 fl (80-100); Monocytes Absolute Auto 0.9 K/mm3 (0.1-0.6); Monocytes Percent Auto 9.8 % (2.6-8.5); Neutrophils Absolute Auto 5.1 K/mm3 (1.3-6.7); Neutrophils Percent Auto 56.3 % (45.5-73.1); Platelet Count Result 238 k/mm3 (150-375); Red Blood Count 3.03 M/mm3 (4.2-5.4); Red Cell Distribution Width 13.6 % (11.5-14.5); White Blood Count 9.1 K/mm3 (4.5-10.0)
[2024-11-01 04:28] LABS: Alanine Aminotransferase 15 U/L (6-35); Albumin Level 2.6 g/dL (3.5-5.1); Alkaline Phosphatase 124 U/L (38-126); Anion Gap 6 mmol/L (4-12); Aspartate Amino Transferase 25 U/L (14-36); Bilirubin,Total 0.1 mg/dL (0.2-1.3); Blood Urea Nitrogen 20 mg/dL (7-17); Calcium 8.3 mg/dL (8.4-10.2); Carbon Dioxide 25 mmol/L (22-30); Chloride 105 mmol/L (98-107); Estimated CRCL calculation 38 ml/min; Estimated Glomerular Filt Rate > 60; Glucose 140 mg/dL (65-110); Magnesium 1.8 mg/dL (1.6-2.3); Potassium 3.2 mmol/L (3.4-5.0); Sodium 136 mmol/L (137-145)
[2024-11-01 04:55] LABS: Partial Thromboplastin Time 69.5 Seconds (22.3-36.8)
[2024-11-01] MEDS: LEVOTHYROXINE SODIUM 75 MCG TABLET PO (05:03)
[2024-11-01] MEDS: HEPARIN SODIUM 5,000 UNITS/ML VIAL 2500 UNITS IV PUSH (05:03)
[2024-11-01] MEDS: HEPARIN SOD/D5W 100 UNITS/ML 25,000 UNITS/250 ML BAG 11 UNITS IV CONT ×2 (05:04→12:37)
[2024-11-01 05:46] VITALS: BP 136/57; PULSE 92; RESP 16; TEMP 36.6; O2SAT 93
[2024-11-01 07:51] LABS: Glucose Point of Care 166 mg/dl (65-105)
[2024-11-01] MEDS: POTASSIUM CHLORIDE 20 MEQ PACKET (FOR LIQUID) 40 MEQ PO (08:56)
[2024-11-01] MEDS: INSULIN ASPART (*BKC) 100 UNITS/ML SUB-Q ×3 (08:59→17:19)
[2024-11-01] MEDS: INSULIN GLARGINE (*BKC) 100 UNITS/ML 18 UNITS SUB-Q (09:00)
[2024-11-01] MEDS: CEFDINIR 300 MG CAPSULE PO ×2 (09:04→21:04)
[2024-11-01] MEDS: amLODIPine BESYLATE 2.5 MG TABLET PO (09:04)
--- NOTE | 2024-11-01 09:16 | PCPTNOTE ---
Addendum entered by Bella Alatorre, PT 11/01/24 15:56: Per Hospitalist at 1300 - pt is safe to attempt PT evaluation. Original Note: Waiting for hospitalist clearance prior to PT evaluation for safety concerns.
[2024-11-01] MEDS: ACETAMINOPHEN 325 MG TABLET PO (09:33)
[2024-11-01 11:20] LABS: Glucose Point of Care 112 mg/dl (65-105)
[2024-11-01 12:30] VITALS: TEMP 37.3
[2024-11-01 12:36] LABS: Partial Thromboplastin Time > 200.0 Seconds (22.3-36.8)
--- NOTE | 2024-11-01 12:54 | P.PNIM_ITS ---
Progress Note: A&P Assessment and Plan (1) Hyperosmolar non-ketotic state due to type 2 diabetes mellitus: Code(s): E11.00 - Type 2 diabetes mellitus with hyperosmolarity without nonketotic hyperglycemic-hyperosmolar coma (N[facility]) Status: Acute (2) Hypertension: Code(s): I10 - Essential (primary) hypertension Status: Acute (3) Diabetes: Code(s): E11.9 - Type 2 diabetes mellitus without complications Status: Acute (4) Hypothyroidism: Code(s): E03.9 - Hypothyroidism, unspecified Status: Acute (5) Dementia: Qualifiers: Dementia behavioral or psychological symptom: unspecified whether behavioral, psychotic, or mood disturbance or anxiety Dementia severity: unspecified severity Dementia type: unspecified type Qualified Code(s): F03.90 - Unspecified dementia, unspecified severity, without behavioral disturbance, psychotic disturbance, mood disturbance, and anxiety Code(s): F03.90 - Unspecified dementia, unspecified severity, without behavioral disturbance, psychotic disturbance, mood disturbance, and anxiety Status: Acute Plan Mayuri Fernando is a 84 year old female with past medical history of central cord syndrome, arthritis, gastric ulcer, GERD, diabetes, essential hypertension, hyperlipidemia, hypothyroidism dementia presented the ED on 10/27/2024 with complaints of elevated blood sugars, confusion, generalized weakness which has been ongoing for 2-3 weeks per patient's . In the ER patient was found to have blood sugars of 738, CO2 30, anion gap 12, BUN 56, creatinine 1.37, initial lactic acid was 2.4, repeat lactic was 1.5 after fluids. Hemoglobin WBC 11.8, hemoglobin 13.3, platelets 277, INR of 1.1. LFTs within normal limits, beta hydroxybutyrate was 1.25, TSH was 0.23. UA showed 1+ protein, 3+ glucose and 1+ ketones, no leukocyte esterase or urine nitrates. Chest x-ray with no acute cardiopulmonary pathology. Head CT with no acute intracranial findings. Patient received 3 L of IV fluids, was started on insulin infusion. Patient transferred to the ICU for further management. With improvement in blood sugar patient was transition to long-acting insulin. A1c was elevated 12.4. Patient transferred back to floor. Hyper osmolar nonketotic hyperglycemia adjust insulin Abdominal pain and nausea: Unclear etiology. Continue Ppi. It is chronic per family. Do not see any workup in the past on the medical record here. History of H pylori positive 2019. EGD with gastric ulcer 2019. Will get stool antigen H pylori test. CT abdomen negative for any acute intra-abdominal pathology mild proctitis noted Acute PE noted incidental finding. CT venous duplex lower extremity negative for DVT A with bilateral PE. Started on anticoagulation no hypoxia hypotension echo pending. Monitor on heparin drip. Moderate aortic stenosis noted on echo 2019 UTI at ceftriaxone. Switched to cefdinir to finish course. Urine culture with aerococcus urinae Hypertension Type 2 diabetes mellitus Hypothyroidism Dementia Cervical canal stenosis with cord compression manage conservatively DVT prophylaxis Lovenox Generalized weakness PT OT to see Code status full code Subjective Date/time seen: 11/01/24 12:54 Interval history: No overnight events. Remains on heparin drip. Not eating much. Denies any shortness of breath. No chest pain. Review of Systems Review of Systems: All systems reviewed & are unremarkable except as noted in HPI and below Exam Narrative: General: Pleasant patient in no acute distress HEENT:? Pupils equal and reactive, sclerae ischemia, moist oral mucous Neck:? Supple Respiratory:? Clear to auscultation bilaterally Cardiac:? S1-S2 normal, regular rate and rhythm Abdomen:? Soft, nontender, nondistended, normoactive bowel sounds Extremities:? No edema, palpable pedal pulse Neuro:? Patient is awake, alert, oriented to self which is her baseline, follows simple commands Skin:? No skin lesions no Psych:? Cognitive impairment noted Objective Data Vital Signs Vital Signs: Vital Signs - 24 hr 10/31/24 14:00 10/31/24 21:33 11/01/24 05:46 Temperature 98.2 F 98.4 F 98 F Pulse Rate 96 88 92 Respiratory Rate 20 24 H 16 Blood Pressure 113/55 L 113/93 H 136/57 L Pulse Oximetry 100 97 93 Intake/Output Intake/Output: Intake & Output 10/29/24 10/30/24 10/31/24 11/01/24 23:59 23:59 23:59 23:59 Intake Total 1480 1150 1530 163.9 Output Total 250 1025 1025 300 Balance 1230 125 505 -136.1 Meds/Results Medications: Active Medications Generic Name Dose Route Start Last Admin Trade Name Freq PRN Reason Stop Dose Admin Acetaminophen 325 mg 10/29/24 22:57 11/01/24 09:33 Acetaminophen 325 Mg Tablet PO 325 mg Q4H PRN Administration Mild Pain (1-3) or Fever Amlodipine Besylate 2.5 mg 10/28/24 09:45 11/01/24 09:04 Amlodipine Besylate 2.5 Mg Tablet PO 2.5 mg DAILY NATALIIA Administration Cefdinir 300 mg 10/31/24 21:00 11/01/24 09:04 Cefdinir 300 Mg Capsule PO 11/05/24 20:59 300 mg Q12HR NATALIIA Administration Dextrose 12.5 gm 10/29/24 09:21 Dextrose 50% 25 Gm/50 Ml Syringe IV PUSH PRN PRN Hypoglycemia Protocol Glucagon 1 mg 10/29/24 09:21 Glucagon For Inj 1 Mg Vial IM PRN PRN Hypoglycemia Protocol Glucose 15 gm 10/29/24 09:21 Glucose Oral Gel 15 Gm Of Glucse In 37.5 Gm Tube PO PRN PRN Hypoglycemia Protocol Heparin Sodium (Porcine) 4,500 units 10/31/24 21:00 Heparin Sodium 5,000 Units/Ml Vial IV PUSH PRN PRN aPTT less than 55 seconds Heparin Sodium (Porcine) 2,500 units 10/31/24 21:00 11/01/24 05:03 Heparin Sodium 5,000 Units/Ml Vial IV PUSH 2,500 units PRN PRN Administration aPTT 55 - 70 seconds Dextrose 1,000 mls @ 100 mls/hr 10/29/24 09:21 Dextrose 5% 1,000 Ml IVPB PRN PRN Hypoglycemia Protocol Heparin Sodium/Dextrose 25,000 units in 250 mls @ 0 mls/hr 10/31/24 19:00 11/01/24 12:45 Heparin Sodium/D5w 100 Units/Ml IV CONT 0 units/hr .Q0M NATALIIA 0 mls/hr Titration Protocol 0 UNITS/HR Insulin Aspart 1 - 3 units 10/28/24 21:00 10/31/24 21:15 Insulin Aspart (*Bkc) 100 Units/Ml SUB-Q Not Given HS [facility] Protocol Insulin Aspart 3 - 6 units 10/28/24 08:00 11/01/24 11:27 Insulin Aspart (*Bkc) 100 Units/Ml SUB-Q Not Given TIDWM [facility] Protocol Insulin Aspart 5 units 10/29/24 12:00 11/01/24 11:45 Insulin Aspart (*Bkc) 100 Units/Ml 0.067 units/kg (5 units) 5 units SUB-Q Administration TIDWM NATALIIA Insulin Glargine 18 units 10/30/24 09:00 11/01/24 09:00 Insulin Glargine (*Bkc) 100 Units/Ml SUB-Q 18 units DAILY NATALIIA Administration Levothyroxine Sodium 75 mcg 10/28/24 07:40 11/01/24 05:03 Levothyroxine Sodium 75 Mcg Tablet PO 75 mcg DAILY@0630 NATALIIA Administration Mirtazapine 15 mg 10/28/24 21:00 10/31/24 21:14 Mirtazapine 15 Mg Tablet PO 15 mg HS NATALIIA Administration Pantoprazole Sodium 40 mg 10/30/24 09:00 11/01/24 07:37 Pantoprazole Sodium Iv 40 Mg Vial IV PUSH Not Given QAM NATALIIA Perflutren Lipid Microsphere 0 ml 10/31/24 10:39 Perflutren Lipid Microspheres 1.5 Ml Vial Diluted To 10 Ml Total Volume IV PUSH 11/03/24 10:39 ONCE PRN adequate visualization Protocol Radiology Results: ITS Impressions Head CT 10/27/24 17:06 IMPRESSION: No acute intracranial findings. Chest X-Ray 10/27/24 17:17 IMPRESSION: No acute cardiopulmonary pathology. Abdomen/Pelvis CT 10/31/24 10:20 Impression: Partially imaged right main pulmonary artery embolus extending to segmental branches in the right lower lobe. Suspected left-sided pulmonary emboli at least involving segmental branches in the left lower lobe. Dedicated CTA of the chest recommended. Constipation and possible mild stercoral proctitis. ADDENDUM: 10/31/24 1036 Findings were discussed with Dr. Vargas at 10:35 AM on 10/31/2024. Chest CTA 10/31/24 11:43 IMPRESSION: 1. Massive pulmonary embolism. Right ventricular strain. 2. Bilateral groundglass appearance suggestive of atelectasis versus pneumonia versus pulmonary edema. Clinical correlation and follow-up advised. Physician: Kevan Vargas MD Was notified with the result of the patient at 12:00 PM on October 31, 2024 Venous Doppler Study 10/31/24 16:59 IMPRESSION: Right peroneal vein not visualized, otherwise no DVT detected in the right lower extremity. Limited evaluation of the left lower extremity, patient declined to continue the examination. No left-sided lower extremity DVT detected proximal to the left popliteal vein. Labs Labs: Laboratory Results - last 24 hr 10/31/24 10/31/24 11/01/24 16:20 20:23 02:59 WBC 9.1 RBC 3.03 L Hgb 9.3 L Hct 28.5 L MCV 94.1 D MCH 30.7 MCHC 32.6 RDW 13.6 Plt Count 238 MPV 11.0 H Immature Gran % (Auto) 1.6 H Neut % (Auto) 56.3 Lymph % (Auto) 29.2 [place] % (Auto) 9.8 H Eos % (Auto) 2.7 Baso % (Auto) 0.4 Lymph # (Auto) 2.66 [place] # (Auto) 0.9 H Eos # (Auto) 0.3 Baso # (Auto) 0.0 Abs Immat Gran (auto) 0.15 H Absolute Neuts (auto) 5.1 Absolute Nucleated RBC 0.000 Nucleated RBC % 0.0 APTT 69.5 H Sodium 136 L Potassium 3.2 L Chloride 105 Carbon Dioxide 25 Anion Gap 6 BUN 20 H Creatinine 0.88 Estim Creat Clear Calc 38 Estimated GFR > 60 Glucose 140 H POC Capillary Glucose 158 H 116 H Calcium 8.3 L Magnesium 1.8 Total Bilirubin 0.1 L AST 25 ALT 15 Alkaline Phosphatase 124 Total Protein 5.0 L Albumin 2.6 L 11/01/24 11/01/24 11/01/24 07:48 11:11 11:13 WBC RBC Hgb Hct MCV MCH MCHC RDW Plt Count MPV Immature Gran % (Auto) Neut % (Auto) Lymph % (Auto) [place] % (Auto) Eos % (Auto) Baso % (Auto) Lymph # (Auto) [place] # (Auto) Eos # (Auto) Baso # (Auto) Abs Immat Gran (auto) Absolute Neuts (auto) Absolute Nucleated RBC Nucleated RBC % APTT > 200.0 H* Sodium Potassium Chloride Carbon Dioxide Anion Gap BUN Creatinine Estim Creat Clear Calc Estimated GFR Glucose POC Capillary Glucose 166 H 112 H Calcium Magnesium Total Bilirubin AST ALT Alkaline Phosphatase Total Protein Albumin
[2024-11-01 14:00] VITALS: BP 117/54; PULSE 103; RESP 16; TEMP 36.3; O2SAT 100
[2024-11-01 17:04] LABS: Glucose Point of Care 94 mg/dl (65-105)
[2024-11-01 20:27] LABS: Partial Thromboplastin Time 130.4 Seconds (22.3-36.8)
[2024-11-01] MEDS: HEPARIN SOD/D5W 100 UNITS/ML 25,000 UNITS/250 ML BAG 8 UNITS IV CONT (20:55)
[2024-11-01] MEDS: MIRTAZAPINE 15 MG TABLET PO (21:04)
[2024-11-01 22:00] VITALS: BP 136/46; PULSE 90; RESP 20; TEMP 36.4; O2SAT 98
[2024-11-02 02:48] LABS: Basophils Percent Auto 0.5 % (0.2-1.2); Eosinophils Absolute Auto 0.2 K/mm3 (0-0.3); Eosinophils Percent Auto 2.8 % (0-4.4); Hematocrit 29.3 % (37.0-47.0); Hemoglobin 9.5 g/dL (12.0-15.0); Immature Granulocyte Absolute 0.12 K/mm3 (0.00-0.031); Immature Granulocyte Percent A 1.4 % (0-0.5); Lymphocytes Percent Auto 27.3 % (18.3-44.2); Mean Corpuscular HGB Conc 32.4 g/dl (32-36); Mean Corpuscular Hemoglobin 30.6 pg (26-34); Mean Corpuscular Volume 94.5 fl (80-100); Mean Platelet Volume 9.8 fl (7.4-10.4); Monocytes Absolute Auto 0.8 K/mm3 (0.1-0.6); Monocytes Percent Auto 9.1 % (2.6-8.5); Neutrophils Percent Auto 58.9 % (45.5-73.1); Platelet Count Result 253 k/mm3 (150-375); Red Cell Distribution Width 13.8 % (11.5-14.5); White Blood Count 8.4 K/mm3 (4.5-10.0)
[2024-11-02 02:57] LABS: Alanine Aminotransferase 16 U/L (6-35); Albumin Level 2.7 g/dL (3.5-5.1); Alkaline Phosphatase 112 U/L (38-126); Anion Gap 5 mmol/L (4-12); Aspartate Amino Transferase 29 U/L (14-36); Bilirubin,Total 0.2 mg/dL (0.2-1.3); Blood Urea Nitrogen 16 mg/dL (7-17); Calcium 8.5 mg/dL (8.4-10.2); Carbon Dioxide 27 mmol/L (22-30); Chloride 104 mmol/L (98-107); Estimated CRCL calculation 38 ml/min; Estimated Glomerular Filt Rate > 60; Glucose 101 mg/dL (65-110); Magnesium 1.9 mg/dL (1.6-2.3); Potassium 3.6 mmol/L (3.4-5.0); Sodium 136 mmol/L (137-145)
[2024-11-02 03:03] LABS: Partial Thromboplastin Time 107.2 Seconds (22.3-36.8)
[2024-11-02] MEDS: HEPARIN SOD/D5W 100 UNITS/ML 25,000 UNITS/250 ML BAG 7 UNITS IV CONT (03:13)
[2024-11-02 04:18] LABS: Glucose Point of Care 103 mg/dl (65-105)
[2024-11-02 06:00] VITALS: BP 138/88; PULSE 84; RESP 20; TEMP 36.5; O2SAT 99
[2024-11-02] MEDS: LEVOTHYROXINE SODIUM 75 MCG TABLET PO (06:43)
[2024-11-02 07:37] LABS: Glucose Point of Care 127 mg/dl (65-105)
[2024-11-02 09:21] LABS: Partial Thromboplastin Time 70.5 Seconds (22.3-36.8)
[2024-11-02] MEDS: CEFDINIR 300 MG CAPSULE PO ×2 (09:45→20:58)
[2024-11-02] MEDS: PANTOPRAZOLE SODIUM IV 40 MG VIAL IV PUSH (09:45)
[2024-11-02] MEDS: amLODIPine BESYLATE 2.5 MG TABLET PO (09:45)
[2024-11-02] MEDS: HEPARIN SODIUM 5,000 UNITS/ML VIAL 2500 UNITS IV PUSH (09:45)
[2024-11-02] MEDS: INSULIN GLARGINE (*BKC) 100 UNITS/ML 18 UNITS SUB-Q (09:46)
[2024-11-02 11:29] LABS: Glucose Point of Care 176 mg/dl (65-105)
[2024-11-02] MEDS: INSULIN ASPART (*BKC) 100 UNITS/ML SUB-Q (11:57)
--- NOTE | 2024-11-02 13:37 | P.PNIM_ITS ---
Progress Note: A&P Assessment and Plan (1) Hyperosmolar non-ketotic state due to type 2 diabetes mellitus: Code(s): E11.00 - Type 2 diabetes mellitus with hyperosmolarity without nonketotic hyperglycemic-hyperosmolar coma (NKHHC) Status: Acute (2) Hypertension: Code(s): I10 - Essential (primary) hypertension Status: Acute (3) Diabetes: Code(s): E11.9 - Type 2 diabetes mellitus without complications Status: Acute (4) Hypothyroidism: Code(s): E03.9 - Hypothyroidism, unspecified Status: Acute (5) Dementia: Qualifiers: Dementia behavioral or psychological symptom: unspecified whether behavioral, psychotic, or mood disturbance or anxiety Dementia severity: unspecified severity Dementia type: unspecified type Qualified Code(s): F03.90 - Unspecified dementia, unspecified severity, without behavioral disturbance, psychotic disturbance, mood disturbance, and anxiety Code(s): F03.90 - Unspecified dementia, unspecified severity, without behavioral disturbance, psychotic disturbance, mood disturbance, and anxiety Status: Acute Plan Mayuri Fernando is a 84 year old female with past medical history of central cord syndrome, arthritis, gastric ulcer, GERD, diabetes, essential hypertension, hyperlipidemia, hypothyroidism dementia presented the ED on 10/27/2024 with complaints of elevated blood sugars, confusion, generalized weakness which has been ongoing for 2-3 weeks per patient's . In the ER patient was found to have blood sugars of 738, CO2 30, anion gap 12, BUN 56, creatinine 1.37, initial lactic acid was 2.4, repeat lactic was 1.5 after fluids. Hemoglobin WBC 11.8, hemoglobin 13.3, platelets 277, INR of 1.1. LFTs within normal limits, beta hydroxybutyrate was 1.25, TSH was 0.23. UA showed 1+ protein, 3+ glucose and 1+ ketones, no leukocyte esterase or urine nitrates. Chest x-ray with no acute cardiopulmonary pathology. Head CT with no acute intracranial findings. Patient received 3 L of IV fluids, was started on insulin infusion. Patient transferred to the ICU for further management. With improvement in blood sugar patient was transition to long-acting insulin. A1c was elevated 12.4. Patient transferred back to floor. Hyper osmolar nonketotic hyperglycemia adjust insulin glucose is controlled in the target range Abdominal pain and nausea: Unclear etiology. Continue Ppi. It is chronic per family. Do not see any workup in the past on the medical record here. History of H pylori positive 2019. EGD with gastric ulcer 2019. stool antigen H pylori test. CT abdomen negative for any acute intra-abdominal pathology mild proctitis noted Acute PE noted incidental finding. CT venous duplex lower extremity negative for DVT A with bilateral PE. Started on anticoagulation no hypoxia hypotension echo y 1. Technically difficult study with limited views. 2. Left ventricular chamber dimension is normal. 3. Left ventricular systolic function is normal, estimated at >70%. 4. There is moderately increased left ventricular wall thickness. 5. The left ventricular diastolic function is grade I diastolic dysfunction. 6. Right ventricular chamber dimension is normal. 7. Right ventricular systolic function is normal. 8. There is severe aortic valve calcification. 9. There is severe aortic valve stenosis with a peak velocity of 383 cm/s, mean gradient of 26 mmHg, and aortic valve area of 0.8 cm2. 10. There is mild to moderate aortic valve regurgitation. 11. There is mild tricuspid valve regurgitation.. on heparin drip. Stop heparin, start Eliquis p.o. 10 mg q.12 hour for 7 days then 5 mg q.12 p.o. Moderate aortic stenosis noted on echo 2020 UTI at ceftriaxone. Switched to cefdinir to finish course. Urine culture with aerococcus urinae Hypertension Type 2 diabetes mellitus Hypothyroidism Dementia Cervical canal stenosis with cord compression manage conservatively DVT prophylaxis Lovenox Generalized weakness PT OT to see Code status full code Patient hospital request to discharge patient home with home health, he declines to [facility] Subjective Date/time seen: 11/02/24 13:37 Interval history: No overnight events. Patient denies chest pain, abdomen pain, nausea vomiting palpitation. Patient has general weakness. Exam Narrative: GENERAL: Pleasant, in no acute distress. Well-nourished. - EYES: EOMI. Anicteric. - HENT: Moist mucous membranes. - LUNGS: Clear to auscultation bilateral ly, no wheezing, rhonchi, or rales. - CARDIOVASCULAR: Regular rate and rhyth m. No murmur. No JVD. - ABDOMEN: Soft, non-tender and non-dist ended. No palpable masses. - EXTREMITIES: No edema. Peripheral puls es 2+. Non-tender. - NEUROLOGIC: No focal neurological defi cits. CN II-XII grossly intact. - PSYCHIATRIC: Awake, Alert and oriented x 3. Appropriate mood and affect. General weakness - SKIN: No rashes or lesions. Warm. - LYMPH: No cervical lymphadenopathy. Objective Data Vital Signs Vital Signs: Vital Signs - 24 hr 11/01/24 14:00 11/01/24 22:00 11/02/24 06:00 Temperature 97.3 F L 97.6 F 97.7 F Pulse Rate 103 H 90 84 Respiratory Rate 16 20 20 Blood Pressure 117/54 L 136/46 L 138/88 Pulse Oximetry 100 98 99 Oxygen Delivery 11/02/24 08:00 11/02/24 12:53 Temperature Pulse Rate Respiratory Rate Blood Pressure Pulse Oximetry Oxygen Delivery Room Air Room Air Intake/Output Intake/Output: Intake & Output 10/30/24 10/31/24 11/01/24 11/02/24 23:59 23:59 23:59 23:59 Intake Total 1150 1530 229.9 50.4 Output Total 1025 1025 540 400 Balance 125 505 -310.1 -349.6 Meds/Results Medications: Active Medications Generic Name Dose Route Start Last Admin Trade Name Freq PRN Reason Stop Dose Admin Acetaminophen 325 mg 10/29/24 22:57 11/01/24 09:33 Acetaminophen 325 Mg Tablet PO 325 mg Q4H PRN Administration Mild Pain (1-3) or Fever Amlodipine Besylate 2.5 mg 10/28/24 09:45 11/02/24 09:45 Amlodipine Besylate 2.5 Mg Tablet PO 2.5 mg DAILY NATALIIA Administration Cefdinir 300 mg 10/31/24 21:00 11/02/24 09:45 Cefdinir 300 Mg Capsule PO 11/05/24 20:59 300 mg Q12HR NATALIIA Administration Dextrose 12.5 gm 10/29/24 09:21 Dextrose 50% 25 Gm/50 Ml Syringe IV PUSH PRN PRN Hypoglycemia Protocol Glucagon 1 mg 10/29/24 09:21 Glucagon For Inj 1 Mg Vial IM PRN PRN Hypoglycemia Protocol Glucose 15 gm 10/29/24 09:21 Glucose Oral Gel 15 Gm Of Glucse In 37.5 Gm Tube PO PRN PRN Hypoglycemia Protocol Heparin Sodium (Porcine) 4,500 units 10/31/24 21:00 Heparin Sodium 5,000 Units/Ml Vial IV PUSH PRN PRN aPTT less than 55 seconds Heparin Sodium (Porcine) 2,500 units 10/31/24 21:00 11/02/24 09:45 Heparin Sodium 5,000 Units/Ml Vial IV PUSH 2,500 units PRN PRN Administration aPTT 55 - 70 seconds Dextrose 1,000 mls @ 100 mls/hr 10/29/24 09:21 Dextrose 5% 1,000 Ml IVPB PRN PRN Hypoglycemia Protocol Heparin Sodium/Dextrose 25,000 units in 250 mls @ 8 mls/hr 10/31/24 19:00 11/02/24 03:13 Heparin Sodium/D5w 100 Units/Ml IV CONT 700 units/hr .Q24H NATALIIA 7 mls/hr Administration Protocol 800 UNITS/HR Insulin Aspart 1 - 3 units 10/28/24 21:00 11/01/24 21:00 Insulin Aspart (*Bkc) 100 Units/Ml SUB-Q Not Given HS NATALIIA Protocol Insulin Aspart 3 - 6 units 10/28/24 08:00 11/02/24 11:57 Insulin Aspart (*Bkc) 100 Units/Ml SUB-Q Not Given TIDWM [facility] Protocol Insulin Aspart 5 units 10/29/24 12:00 11/02/24 11:57 Insulin Aspart (*Bkc) 100 Units/Ml 0.067 units/kg (5 units) 5 units SUB-Q Administration TIDWM NATALIIA Insulin Glargine 18 units 10/30/24 09:00 11/02/24 09:46 Insulin Glargine (*Bkc) 100 Units/Ml SUB-Q 18 units DAILY NATALIIA Administration Levothyroxine Sodium 75 mcg 10/28/24 07:40 11/02/24 06:43 Levothyroxine Sodium 75 Mcg Tablet PO 75 mcg DAILY@0630 NATALIIA Administration Mirtazapine 15 mg 10/28/24 21:00 11/01/24 21:04 Mirtazapine 15 Mg Tablet PO 15 mg HS NATALIIA Administration Pantoprazole Sodium 40 mg 10/30/24 09:00 11/02/24 09:45 Pantoprazole Sodium Iv 40 Mg Vial IV PUSH 40 mg QAM NATALIIA Administration Perflutren Lipid Microsphere 0 ml 10/31/24 10:39 Perflutren Lipid Microspheres 1.5 Ml Vial Diluted To 10 Ml Total Volume IV PUSH 11/03/24 10:39 ONCE PRN adequate visualization Protocol Radiology Results: ITS Impressions Head CT 10/27/24 17:06 IMPRESSION: No acute intracranial findings. Chest X-Ray 10/27/24 17:17 IMPRESSION: No acute cardiopulmonary pathology. Abdomen/Pelvis CT 10/31/24 10:20 Impression: Partially imaged right main pulmonary artery embolus extending to segmental branches in the right lower lobe. Suspected left-sided pulmonary emboli at least involving segmental branches in the left lower lobe. Dedicated CTA of the chest recommended. Constipation and possible mild stercoral proctitis. ADDENDUM: 10/31/24 1036 Findings were discussed with Dr. Vargas at 10:35 AM on 10/31/2024. Chest CTA 10/31/24 11:43 IMPRESSION: 1. Massive pulmonary embolism. Right ventricular strain. 2. Bilateral groundglass appearance suggestive of atelectasis versus pneumonia versus pulmonary edema. Clinical correlation and follow-up advised. Physician: Kevan Vargas MD Was notified with the result of the patient at 12:00 PM on October 31, 2024 Venous Doppler Study 10/31/24 16:59 IMPRESSION: Right peroneal vein not visualized, otherwise no DVT detected in the right lower extremity. Limited evaluation of the left lower extremity, patient declined to continue the examination. No left-sided lower extremity DVT detected proximal to the left popliteal vein. Labs Labs: Laboratory Results - last 24 hr 11/01/24 11/01/24 11/01/24 17:01 20:06 21:10 WBC RBC Hgb Hct MCV MCH MCHC RDW Plt Count MPV Immature Gran % (Auto) Neut % (Auto) Lymph % (Auto) [place] % (Auto) Eos % (Auto) Baso % (Auto) Lymph # (Auto) [place] # (Auto) Eos # (Auto) Baso # (Auto) Abs Immat Gran (auto) Absolute Neuts (auto) Absolute Nucleated RBC Nucleated RBC % APTT 130.4 H Sodium Potassium Chloride Carbon Dioxide Anion Gap BUN Creatinine Estim Creat Clear Calc Estimated GFR Glucose POC Capillary Glucose 94 103 Calcium Magnesium Total Bilirubin AST ALT Alkaline Phosphatase Total Protein Albumin 11/02/24 11/02/24 11/02/24 02:44 07:21 09:01 WBC 8.4 RBC 3.10 L Hgb 9.5 L Hct 29.3 L MCV 94.5 MCH 30.6 MCHC 32.4 RDW 13.8 Plt Count 253 MPV 9.8 Immature Gran % (Auto) 1.4 H Neut % (Auto) 58.9 Lymph % (Auto) 27.3 [place] % (Auto) 9.1 H Eos % (Auto) 2.8 Baso % (Auto) 0.5 Lymph # (Auto) 2.30 [place] # (Auto) 0.8 H Eos # (Auto) 0.2 Baso # (Auto) 0.0 Abs Immat Gran (auto) 0.12 H Absolute Neuts (auto) 5.0 Absolute Nucleated RBC 0.000 Nucleated RBC % 0.0 APTT 107.2 H 70.5 H Sodium 136 L Potassium 3.6 Chloride 104 Carbon Dioxide 27 Anion Gap 5 BUN 16 Creatinine 0.85 Estim Creat Clear Calc 38 Estimated GFR > 60 Glucose 101 POC Capillary Glucose 127 H Calcium 8.5 Magnesium 1.9 Total Bilirubin 0.2 AST 29 ALT 16 Alkaline Phosphatase 112 Total Protein 5.0 L Albumin 2.7 L 11/02/24 11:26 WBC RBC Hgb Hct MCV MCH MCHC RDW Plt Count MPV Immature Gran % (Auto) Neut % (Auto) Lymph % (Auto) [place] % (Auto) Eos % (Auto) Baso % (Auto) Lymph # (Auto) [place] # (Auto) Eos # (Auto) Baso # (Auto) Abs Immat Gran (auto) Absolute Neuts (auto) Absolute Nucleated RBC Nucleated RBC % APTT Sodium Potassium Chloride Carbon Dioxide Anion Gap BUN Creatinine Estim Creat Clear Calc Estimated GFR Glucose POC Capillary Glucose 176 H Calcium Magnesium Total Bilirubin AST ALT Alkaline Phosphatase Total Protein Albumin
[2024-11-02 13:52] VITALS: BP 111/46; PULSE 90; RESP 20; TEMP 36.7; O2SAT 98
[2024-11-02 15:53] LABS: Partial Thromboplastin Time 81.3 Seconds (22.3-36.8)
[2024-11-02 16:41] LABS: Glucose Point of Care 84 mg/dl (65-105)
[2024-11-02 20:53] LABS: Glucose Point of Care 136 mg/dl (65-105)
[2024-11-02] MEDS: ACETAMINOPHEN 325 MG TABLET PO (20:58)
[2024-11-02] MEDS: APIXABAN 5 MG TABLET 10 MG PO (20:58)
[2024-11-02] MEDS: MIRTAZAPINE 15 MG TABLET PO (20:58)
[2024-11-02 21:25] VITALS: BP 129/50; PULSE 98; RESP 16; TEMP 36.4; O2SAT 100
[2024-11-03 05:49] VITALS: BP 146/54; PULSE 88; RESP 14; TEMP 36.2; O2SAT 100
[2024-11-03 07:51] LABS: Glucose Point of Care 122 mg/dl (65-105)
[2024-11-03] MEDS: CEFDINIR 300 MG CAPSULE PO (09:10)
[2024-11-03] MEDS: APIXABAN 5 MG TABLET 10 MG PO (09:10)
[2024-11-03] MEDS: INSULIN GLARGINE (*BKC) 100 UNITS/ML 18 UNITS SUB-Q (09:10)
[2024-11-03] MEDS: amLODIPine BESYLATE 2.5 MG TABLET PO (09:10)
[2024-11-03] MEDS: PANTOPRAZOLE SODIUM IV 40 MG VIAL IV PUSH (09:11)
[2024-11-03 11:30] LABS: Glucose Point of Care 125 mg/dl (65-105)
--- NOTE | 2024-11-03 12:38 | P.PNIM_ITS ---
Progress Note: A&P Assessment and Plan (1) Hyperosmolar non-ketotic state due to type 2 diabetes mellitus: Code(s): E11.00 - Type 2 diabetes mellitus with hyperosmolarity without nonketotic hyperglycemic-hyperosmolar coma ([facility]) Status: Acute (2) Hypertension: Code(s): I10 - Essential (primary) hypertension Status: Acute (3) Diabetes: Code(s): E11.9 - Type 2 diabetes mellitus without complications Status: Acute (4) Hypothyroidism: Code(s): E03.9 - Hypothyroidism, unspecified Status: Acute (5) Dementia: Qualifiers: Dementia behavioral or psychological symptom: unspecified whether behavioral, psychotic, or mood disturbance or anxiety Dementia severity: unspecified severity Dementia type: unspecified type Qualified Code(s): F03.90 - Unspecified dementia, unspecified severity, without behavioral disturbance, psychotic disturbance, mood disturbance, and anxiety Code(s): F03.90 - Unspecified dementia, unspecified severity, without behavioral disturbance, psychotic disturbance, mood disturbance, and anxiety Status: Acute Plan Mayuri Fernando is a 84 year old female with past medical history of central cord syndrome, arthritis, gastric ulcer, GERD, diabetes, essential hypertension, hyperlipidemia, hypothyroidism dementia presented the ED on 10/27/2024 with complaints of elevated blood sugars, confusion, generalized weakness which has been ongoing for 2-3 weeks per patient's . In the ER patient was found to have blood sugars of 738, CO2 30, anion gap 12, BUN 56, creatinine 1.37, initial lactic acid was 2.4, repeat lactic was 1.5 after fluids. Hemoglobin WBC 11.8, hemoglobin 13.3, platelets 277, INR of 1.1. LFTs within normal limits, beta hydroxybutyrate was 1.25, TSH was 0.23. UA showed 1+ protein, 3+ glucose and 1+ ketones, no leukocyte esterase or urine nitrates. Chest x-ray with no acute cardiopulmonary pathology. Head CT with no acute intracranial findings. Patient received 3 L of IV fluids, was started on insulin infusion. Patient transferred to the ICU for further management. With improvement in blood sugar patient was transition to long-acting insulin. A1c was elevated 12.4. Patient transferred back to floor. Hyper osmolar nonketotic hyperglycemia adjust insulin glucose is controlled in the target range Uncontrolled Type 2 diabetes mellitus Not on home medication Well controlled on Lantus and lispro a.c. and sliding scale Continue Lantus 18 units q.h.s., lispro 3 night a.c. and sliding scale a.c. q.h.s. Abdominal pain and nausea: Unclear etiology. Continue Ppi. It is chronic per family. Do not see any workup in the past on the medical record here. History of H pylori positive 2019. EGD with gastric ulcer 2019. CT abdomen negative for any acute intra-abdominal pathology mild proctitis noted Resolved Acute PE noted incidental finding. CT venous duplex lower extremity negative for DVT A with bilateral PE. Started on anticoagulation no hypoxia hypotension echo y 1. Technically difficult study with limited views. 2. Left ventricular chamber dimension is normal. 3. Left ventricular systolic function is normal, estimated at >70%. 4. There is moderately increased left ventricular wall thickness. 5. The left ventricular diastolic function is grade I diastolic dysfunction. 6. Right ventricular chamber dimension is normal. 7. Right ventricular systolic function is normal. 8. There is severe aortic valve calcification. 9. There is severe aortic valve stenosis with a peak velocity of 383 cm/s, mean gradient of 26 mmHg, and aortic valve area of 0.8 cm2. 10. There is mild to moderate aortic valve regurgitation. 11. There is mild tricuspid valve regurgitation.. on heparin drip. Stop heparin, start Eliquis p.o. 10 mg q.12 hour for 7 days then 5 mg q.12 p.o. Moderate aortic stenosis noted on echo 2020 UTI at ceftriaxone. Switched to cefdinir to finish course. Urine culture with aerococcus urinae Hypothyroidism Continue home medication Dementia And baseline Cervical canal stenosis with cord compression manage conservatively DVT prophylaxis Lovenox Generalized weakness PT OT to see Code status full code Patient family request to discharge patient home with home health, they decline to discharge patient to [facility] Subjective Date/time seen: 11/03/24 12:38 Interval history: I saw examined patient in presents of patient's family. Patient denies chest pain, abdomen pain, nausea vomiting palpitation. Patient has general weakness but improving Exam Narrative: GENERAL: Pleasant, in no acute distress. Well-nourished. - EYES: EOMI. Anicteric. - HENT: Moist mucous membranes. - LUNGS: Clear to auscultation bilateral ly, no wheezing, rhonchi, or rales. - CARDIOVASCULAR: Regular rate and rhyth m. No murmur. No JVD. - ABDOMEN: Soft, non-tender and non-dist ended. No palpable masses. - EXTREMITIES: No edema. Peripheral puls es 2+. Non-tender. - NEUROLOGIC: No focal neurological defi cits. CN II-XII grossly intact. - PSYCHIATRIC: Awake, Alert and oriented x 3. Appropriate mood and affect. General weakness - SKIN: No rashes or lesions. Warm. - LYMPH: No cervical lymphadenopathy. Objective Data Vital Signs Vital Signs: Vital Signs - 24 hr 11/02/24 12:53 11/02/24 13:52 11/02/24 16:10 Temperature 98.1 F Pulse Rate 90 Respiratory Rate 20 Blood Pressure 111/46 L Pulse Oximetry 98 Oxygen Delivery Room Air Room Air 11/02/24 21:25 11/03/24 05:49 11/03/24 08:00 Temperature 97.6 F 97.1 F L Pulse Rate 98 88 Respiratory Rate 16 14 Blood Pressure 129/50 L 146/54 H Pulse Oximetry 100 100 Oxygen Delivery Room Air Intake/Output Intake/Output: Intake & Output 10/31/24 11/01/24 11/02/24 11/03/24 23:59 23:59 23:59 23:59 Intake Total 1530 229.9 290.4 50 Output Total 1025 540 400 500 Balance 505 -310.1 -109.6 -450 Meds/Results Medications: Active Medications Generic Name Dose Route Start Last Admin Trade Name Freq PRN Reason Stop Dose Admin Acetaminophen 325 mg 10/29/24 22:57 11/02/24 20:58 Acetaminophen 325 Mg Tablet PO 325 mg Q4H PRN Administration Mild Pain (1-3) or Fever Amlodipine Besylate 2.5 mg 10/28/24 09:45 11/03/24 09:10 Amlodipine Besylate 2.5 Mg Tablet PO 2.5 mg DAILY NATALIIA Administration Apixaban 10 mg 11/02/24 21:00 11/03/24 09:10 Apixaban 5 Mg Tablet PO 11/09/24 20:59 10 mg Q12HR NATALIIA Administration Cefdinir 300 mg 10/31/24 21:00 11/03/24 09:10 Cefdinir 300 Mg Capsule PO 11/05/24 20:59 300 mg Q12HR NATALIIA Administration Dextrose 12.5 gm 10/29/24 09:21 Dextrose 50% 25 Gm/50 Ml Syringe IV PUSH PRN PRN Hypoglycemia Protocol Glucagon 1 mg 10/29/24 09:21 Glucagon For Inj 1 Mg Vial IM PRN PRN Hypoglycemia Protocol Glucose 15 gm 10/29/24 09:21 Glucose Oral Gel 15 Gm Of Glucse In 37.5 Gm Tube PO PRN PRN Hypoglycemia Protocol Dextrose 1,000 mls @ 100 mls/hr 10/29/24 09:21 Dextrose 5% 1,000 Ml IVPB PRN PRN Hypoglycemia Protocol Insulin Aspart 1 - 3 units 10/28/24 21:00 11/02/24 21:26 Insulin Aspart (*Bkc) 100 Units/Ml SUB-Q Not Given HS NATALIIA Protocol Insulin Aspart 3 - 6 units 10/28/24 08:00 11/03/24 11:44 Insulin Aspart (*Bkc) 100 Units/Ml SUB-Q Not Given TIDWM NATALIIA Protocol Insulin Aspart 5 units 10/29/24 12:00 11/03/24 11:44 Insulin Aspart (*Bkc) 100 Units/Ml 0.067 units/kg (5 units) Not Given SUB-Q TIDWM NATALIIA Insulin Glargine 18 units 10/30/24 09:00 11/03/24 09:10 Insulin Glargine (*Bkc) 100 Units/Ml SUB-Q 18 units DAILY NATALIIA Administration Levothyroxine Sodium 75 mcg 10/28/24 07:40 11/03/24 06:26 Levothyroxine Sodium 75 Mcg Tablet PO Not Given DAILY@0630 NATALIIA Mirtazapine 15 mg 10/28/24 21:00 11/02/24 20:58 Mirtazapine 15 Mg Tablet PO 15 mg HS NATALIIA Administration Pantoprazole Sodium 40 mg 10/30/24 09:00 11/03/24 09:11 Pantoprazole Sodium Iv 40 Mg Vial IV PUSH 40 mg QAM NATALIIA Administration Radiology Results: ITS Impressions Head CT 10/27/24 17:06 IMPRESSION: No acute intracranial findings. Chest X-Ray 10/27/24 17:17 IMPRESSION: No acute cardiopulmonary pathology. Abdomen/Pelvis CT 10/31/24 10:20 Impression: Partially imaged right main pulmonary artery embolus extending to segmental branches in the right lower lobe. Suspected left-sided pulmonary emboli at least involving segmental branches in the left lower lobe. Dedicated CTA of the chest recommended. Constipation and possible mild stercoral proctitis. ADDENDUM: 10/31/24 1036 Findings were discussed with Dr. Vargas at 10:35 AM on 10/31/2024. Chest CTA 10/31/24 11:43 IMPRESSION: 1. Massive pulmonary embolism. Right ventricular strain. 2. Bilateral groundglass appearance suggestive of atelectasis versus pneumonia versus pulmonary edema. Clinical correlation and follow-up advised. Physician: Kevan Vargas MD Was notified with the result of the patient at 12:00 PM on October 31, 2024 Venous Doppler Study 10/31/24 16:59 IMPRESSION: Right peroneal vein not visualized, otherwise no DVT detected in the right lower extremity. Limited evaluation of the left lower extremity, patient declined to continue the examination. No left-sided lower extremity DVT detected proximal to the left popliteal vein. Labs Labs: Laboratory Results - last 24 hr 11/02/24 11/02/24 11/02/24 15:28 16:36 20:16 APTT 81.3 H POC Capillary Glucose 84 136 H 11/03/24 11/03/24 07:35 11:26 APTT POC Capillary Glucose 122 H 125 H
--- NOTE | 2024-11-03 12:40 | P.DS_ITS ---
DS: Admitting Diagnosis Discharge Date 11/03/24 Admitting Diagnosis (1) Hyperosmolar non-ketotic state due to type 2 diabetes mellitus: Code(s): E11.00 - Type 2 diabetes mellitus with hyperosmolarity without nonketotic hyperglycemic-hyperosmolar coma ([facility]) Status: Acute (2) Hypertension: Code(s): I10 - Essential (primary) hypertension Status: Acute (3) Diabetes: Code(s): E11.9 - Type 2 diabetes mellitus without complications Status: Acute (4) Hypothyroidism: Code(s): E03.9 - Hypothyroidism, unspecified Status: Acute (5) Dementia: DS: Discharge Diagnosis Discharge Diagnosis (1) Hyperosmolar non-ketotic state due to type 2 diabetes mellitus: Code(s): E11.00 - Type 2 diabetes mellitus with hyperosmolarity without nonketotic hyperglycemic-hyperosmolar coma ([facility]) Status: Acute (2) Hypertension: Code(s): I10 - Essential (primary) hypertension Status: Acute (3) Diabetes: Code(s): E11.9 - Type 2 diabetes mellitus without complications Status: Acute (4) Hypothyroidism: Code(s): E03.9 - Hypothyroidism, unspecified Status: Acute (5) Dementia: Qualifiers: Dementia behavioral or psychological symptom: unspecified whether behavioral, psychotic, or mood disturbance or anxiety Dementia severity: unspecified severity Dementia type: unspecified type Qualified Code(s): F03.90 - Unspecified dementia, unspecified severity, without behavioral disturbance, psychotic disturbance, mood disturbance, and anxiety Code(s): F03.90 - Unspecified dementia, unspecified severity, without behavioral disturbance, psychotic disturbance, mood disturbance, and anxiety Status: Acute DS: Summary Hospital Course Hospital Course: Mayuri Fernando is a 84 year old female with past medical history of central cord syndrome, arthritis, gastric ulcer, GERD, diabetes, essential hypertension, hyperlipidemia, hypothyroidism dementia presented the ED on 10/27/2024 with complaints of elevated blood sugars, confusion, generalized weakness which has been ongoing for 2-3 weeks per patient's . In the ER patient was found to have blood sugars of 738, CO2 30, anion gap 12, BUN 56, creatinine 1.37, ini tial lactic acid was 2.4, repeat lactic was 1.5 after fluids. Hemoglobin WBC 11.8, hemoglobin 13.3, platelets 277, INR of 1.1. LFTs within normal limits, beta hydroxybutyrate was 1.25, TSH was 0.23. UA showed 1+ protein, 3+ glucose and 1+ ketones, no leukocyte esterase or urine nitrates. Chest x-ray with no acute cardiopulmonary pathology. Head CT with no acute intracranial findings. Patient received 3 L of IV fluids, was started on insulin infusion. Patient transferred to the ICU for further management. With improvement in blood sugar patient was transition to long-acting insulin. A1c was elevated 12.4. Patient transferred back to floor. Hyper osmolar nonketotic hyperglycemia adjust insulin see below glucose is controlled in the target range Uncontrolled Type 2 diabetes mellitus Not on home medication Well controlled on Lantus and lispro a.c. and sliding scale Continue Lantus 18 units q.h.s., lispro 3 night a.c. and sliding scale a.c. q.h.s. Abdominal pain and nausea: Unclear etiology. Continue Ppi. It is chronic per family. Do not see any workup in the past on the medical record here. History of H pylori positive 2019. EGD with gastric ulcer 2019. CT abdomen negative for any acute intra-abdominal pathology mild proctitis noted Resolved Acute PE noted incidental finding. CT venous duplex lower extremity negative for DVT A with bilateral PE. Started on anticoagulation no hypoxia hypotension echo y 1. Technically difficult study with limited views. 2. Left ventricular chamber dimension is normal. 3. Left ventricular systolic function is normal, estimated at >70%. 4. There is moderately increased left ventricular wall thickness. 5. The left ventricular diastolic function is grade I diastolic dysfunction. 6. Right ventricular chamber dimension is normal. 7. Right ventricular systolic function is normal. 8. There is severe aortic valve calcification. 9. There is severe aortic valve stenosis with a peak velocity of 383 cm/s, mean gradient of 26 mmHg, and aortic valve area of 0.8 cm2. 10. There is mild to moderate aortic valve regurgitation. 11. There is mild tricuspid valve regurgitation.. on heparin drip. Stop heparin, start Eliquis p.o. 10 mg q.12 hour for 7 days then 5 mg q.12 p.o. Moderate aortic stenosis noted on echo 2020 UTI at ceftriaxone. Switched to cefdinir to finish course. Urine culture with aerococcus urinae Hypothyroidism Continue home medication Dementia And baseline Cervical canal stenosis with cord compression manage conservatively DVT prophylaxis Lovenox Generalized weakness PT OT to see Code status full code Patient family request to discharge patient home with home health, they decline to discharge patient to halfway Time Spent with Patient Time attestation: Total time spent providing and/or coordinating discharge services: Exam Narrative: GENERAL: Pleasant, in no acute distress. Well-nourished. - EYES: EOMI. Anicteric. - HENT: Moist mucous membranes. - LUNGS: Clear to auscultation bilateral ly, no wheezing, rhonchi, or rales. - CARDIOVASCULAR: Regular rate and rhyth m. No murmur. No JVD. - ABDOMEN: Soft, non-tender and non-dist ended. No palpable masses. - EXTREMITIES: No edema. Peripheral puls es 2+. Non-tender. - NEUROLOGIC: No focal neurological defi cits. CN II-XII grossly intact. - PSYCHIATRIC: Awake, Alert and oriented x 3. Appropriate mood and affect. General weakness - SKIN: No rashes or lesions. Warm. - LYMPH: No cervical lymphadenopathy. DS: Data Data Completed and Pending Labs on day of discharge: Labs from last 24 hours 11/03/24 11/03/24 11/02/24 11:26 07:35 20:16 APTT POC Capillary Glucose 125 H 122 H 136 H 11/02/24 11/02/24 16:36 15:28 APTT 81.3 H POC Capillary Glucose 84 Discharge Plan Discharge Attending physician on discharge: Minh Servin Consulting providers: Parag Craft Discharging Clinician: Minh Servin Anticipated Discharge Date/Time: 11/03/24 12:40 Patient Disposition: Home with Home Health Service Activity: as tolerated Diet: as tolerated and heart healthy Discharge Instructions: Per Care Coordination Patient has been accepted to have [facility] for RN, PT, OT [phone]. [facility] staff will call to arrange a time to see you in your home. Patient Instructions: Antibiotic Form, Basic Carbohydrate Counting (DC), Diabetic Hyperglycemia (GEN) Patient Language: Tamaz[place] Stand Alone Forms: General Discharge Information Follow-up/Referrals: Ye,MATHEUS Spaulding [Primary Care Provider] - (Patient needs to see primary care doctor in 1 week) Discharge Medications: New cefdinir 300 mg Capsule 300 mg PO Q12HR Qty: 5 0RF Eliquis 5 mg Tablet 10 mg PO Q12HR Qty: 60 2RF Rx Instructions: Patient needs to take Eliquis 10 mg q.12 hours p.o. for 6 days. Then take Eliquis 5 mg q.12 hours p.o. insulin aspart U-100 [Novolog U-100 Insulin aspart] 100 unit/mL Solution 1 - 3 unit subcut HS Qty: 10 0RF Protocol: Insulin Corrective Moderate-Dose Condition: glucose < 70 mg/dl Dose/Route: Follow hypoglycemia orders Condition: glucose 70-200 mg/dl Dose/Route: No additional insulin Condition: glucose 201-250 mg/dl Dose/Route: 1 units sub-Q Condition: glucose 251-300 mg/dl Dose/Route: 2 units sub-Q Condition: glucose 301-350 mg/dl Dose/Route: 2 units sub-Q Condition: glucose 351-400 mg/dl Dose/Route: 3 units sub-Q Condition: glucose > 400 mg/dl Dose/Route: Call Rx Instructions: Instruction glucose < 70 mg/dl Follow hypoglycemia orders glucose 70-200 mg/dl No additional insulin glucose 201-250 mg/dl 1 units sub-Q glucose 251-300 mg/dl 2 units sub-Q glucose 301-350 mg/dl 2 units sub-Q glucose 351-400 mg/dl 3 units sub-Q glucose > 400 mg/dl Call insulin aspart U-100 [Novolog U-100 Insulin aspart] 100 unit/mL Solution 3 - 6 unit subcut TIDWM Qty: 10 0RF Protocol: Insulin Corrective Moderate-Dose Condition: glucose < 70 mg/dl Dose/Route: Follow hypoglycemia orders Condition: glucose 70-200 mg/dl Dose/Route: No additional insulin Condition: glucose 201-250 mg/dl Dose/Route: 3 units sub-Q Condition: glucose 251-300 mg/dl Dose/Route: 4 units sub-Q Condition: glucose 301-350 mg/dl Dose/Route: 5 units sub-Q Condition: glucose 351-400 mg/dl Dose/Route: 6 units sub-Q Condition: glucose > 400 mg/dl Dose/Route: Call MD Protocol Text: *No Correction Dose at Bedtime* Rx Instructions: Instruction glucose < 70 mg/dl Follow hypoglycemia orders glucose 70-200 mg/dl No additional insulin glucose 201-250 mg/dl 3 units sub-Q glucose 251-300 mg/dl 4 units sub-Q glucose 301-350 mg/dl 5 units sub-Q glucose 351-400 mg/dl 6 units sub-Q glucose > 400 mg/dl Call insulin aspart U-100 [Novolog U-100 Insulin aspart] 100 unit/mL Solution 3 unit subcut TIDWM Qty: 10 0RF insulin glargine [Lantus U-100 Insulin] 100 unit/mL Solution 15 unit subcut DAILY Qty: 10 1RF (DME) blood-glucose meter [OneTouch Verio Flex meter] [facility] Qty: 1 0RF Rx Instructions: May substitute to in-stock meter and/or covered by insurance. Use As Directed (DME) OneTouch Verio test strips Strip Qty: 1 0RF Rx Instructions: May substitute to in-stock and/or covered by insurance strips. Use As Directed (DME) pen needle, diabetic 32 gauge x 5/32 Needle Qty: 1 0RF Rx Instructions: As Directed (DME) lancets [[employer]Touch Delica Plus Lancet] 30 gauge [facility] Qty: 1 0RF Rx Instructions: May substitute to in-stock and/or covered by insurance lancets. Use As Directed (DME) insulin syringe,safety needle 0.5 mL 31 gauge x 5/16 Syringe Qty: 1 0RF Rx Instructions: As Directed Continued bisoprolol-hydrochlorothiazide 5-6.25 mg tablet 1 tablet PO QAM levothyroxine [Synthroid] 75 mcg tablet 75 mcg PO QAM amlodipine 2.5 mg tablet 2.5 mg PO DAILY mirtazapine 7.5 mg tablet 15 mg PO HS gabapentin 400 mg capsule 400 mg PO TID Qty: 90 3RF Date of admission: 10/28/24 16:10 Primary Care Provider: Ye,Chelly Admitting Provider: Lindsey Ruiz Attending physician on admission: Rafa Davenport Condition: Stable
[2024-11-03 14:00] VITALS: BP 133/57; PULSE 87; RESP 14; TEMP 36.3; O2SAT 100
--- NOTE | 2024-11-04 15:15 | PCCDE ---
11/04/24 Pt DC'd yesterday with insulin Rx. Placed courtesy follow up call. Spouse out, son RN who they were counting on for insulin teaching support, answered phone. Son verbalizing father was able to advise re: Correction dosing, He thinks dad will be able to handle injections and dosing. C/O pt frail fingers -> Advised re: CGM (likely covered by insurance due to current basal/bolus regimen. To talk with HCP re: Rx Pts spouse monitors glucose, administers all meds. Per RN, pt with very poor po intake today. If continues enc'd to talk with HCP. FJ
== END 2024-11-03 18:10 | disposition home health service (06) | DRG 637 ==
LOC: ANHED 10-28 00:12 → ANHICU 10-28 00:49 → ANH3MEDSUR 10-28 21:37
PROVIDERS: Internal Medicine; Physician Assistant; Admitting Provider Internal Medicine; Emergency Provider Physician Assistant; PCP Physician Assistant; Visit Provider Hospitalist
DX: E11.00 Type 2 diabetes mellitus with hyperosmolarity without nonketotic hyperglycemic-hyperosmolar coma (NKHHC) (principal); I26.99 Other pulmonary embolism without acute cor pulmonale; G99.2 Myelopathy in diseases classified elsewhere; M48.02 Spinal stenosis, cervical region; I10 Essential (primary) hypertension; E03.9 Hypothyroidism, unspecified; K21.9 Gastro-esophageal reflux disease without esophagitis; M19.90 Unspecified osteoarthritis, unspecified site; F03.90 Unspecified dementia, unspecified severity, without behavioral disturbance, psychotic disturbance, mood disturbance, and anxiety; Z96.659 Presence of unspecified artificial knee joint; S14.129D Central cord syndrome at unspecified level of cervical spinal cord, subsequent encounter; Z87.11 Personal history of peptic ulcer disease
CPT/HCPCS: 36415; 70450; 71045; 71275; 74177; 80048; 80053; 81001; 82010; 82803; 82948; 83036; 83605; 83735; 83880; 84100; 84443; 85025; 85610; 85730; 87086; 87641; 93005; 93306; 93970; 96361; 96366; 96372; 96374; 96376; 97162; 97166; 99212; 99285; A9270; G0378; G0463; J0696; J1644; J1650; J1815; J1885; J2470; J7030; J7040; Q9967